=== PATIENT | male | born 1975 | race Caucasian/White ===

== ENCOUNTER 2016-07-31 18:44 | Emergency (ER) | payer OTHER ==
[2016-07-31 19:46] VITALS: BP 154/92
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
== END 2016-07-31 20:20 | disposition short-term general hospital (02) ==
LOC: UCEAST 18:44
DX: R10.12 Left upper quadrant pain (principal); F12.90 Cannabis use, unspecified, uncomplicated; F17.220 Nicotine dependence, chewing tobacco, uncomplicated
CPT/HCPCS: 99213; G0463

== ENCOUNTER 2016-07-31 20:52 | Emergency (ER) | payer OTHER ==
[2016-07-31] MEDS ORDERED: Ondansetron INJ* 2 MG/ML VIAL IV ONE (21:33)
[2016-07-31] MEDS ORDERED: Morphine INJ* 4 MG/ML 1 ML CARPUJECT IV ONE ×2 (21:33→23:01)
[2016-07-31 21:54] LABS: Hematocrit 41 % (42-52); Mean Corpuscular HGB Conc 35 g/dl (31-36); Mean Corpuscular Hemoglobin 30 pg (27-31); Mean Corpuscular Volume 87 fL (80-94); Mean Platelet Volume 8 um3 (7.4-10.4); Red Blood Count 4.69 10^6/ul (4.0-5.4); Red Cell Distribution Width 13 % (10.5-15); White Blood Count 7.5 10^3/ul (3.5-10.8)
[2016-07-31 22:15] LABS: Albumin 4.4 g/dL (3.2-5.2); BUN/Creatinine Ratio 20.7 (8-20); Calcium 9.5 mg/dL (8.6-10.3); EGFR African American 134.5 (>60); EGFR Non-African American 104.6 (>60); Globulin 2.8 g/dL (2-4); Total Bilirubin 0.5 mg/dL (0.2-1.0); Total Protein 7.2 g/dL (6.4-8.9)
[2016-07-31] MEDS ORDERED: Iohexol 300* (CONTRAST) 10 ML SDV IV ONE (22:30)
--- NOTE | 2016-07-31 22:59 | RAD ---
INDICATION: Left upper quadrant pain for 2 to 3 hours COMPARISON: CT abdomen and pelvis December 25, 2014 TECHNIQUE: Axial source images were obtained from the hemidiaphragms to the symphysis pubis following administration of oral and intravenous contrast. 139 mL Omnipaque 300 was utilized. Coronal and sagittal reconstructed images were acquired. Lung bases: The lung bases are clear. Liver: The liver is normal in size. There is mild hepatic steatosis. There are no masses. There is no ductal dilatation. Gallbladder: Cholelithiasis. Spleen: The spleen is normal in size. There are no masses. Pancreas: There is no focal pancreatic mass or ductal dilatation. Adrenal glands: There is no evidence of adrenal mass. Kidneys: The kidneys are normal in size and position. There are prompt nephrograms and there is prompt excretion bilaterally. There are no renal parenchymal masses. There is no evidence of nephrolithiasis. Adenopathy: There is no evidence of adenopathy by size criteria. Fluid collections: There are no free or localized fluid collections. Vessels:There are no significant atherosclerotic changes involving the aorta. There is no focal aneurysm. The iliac vessels are normal in caliber. The IVC appears normal. GI tract: There are no acute CT bowel findings. There is no obstruction. The stomach and small bowel appear normal. The lower GI tract is normal. The cecum, ileocecal valve, and terminal ileum appear normal. The appendix is visualized and appear normal. Pelvic organs: The prostate and seminal vesicles appear normal Bladder: There are no bladder masses. Abdominal and pelvic soft tissues: The extraperitoneal abdominal and pelvic soft tissues appear normal.. Osseous structures: There are no acute osseous findings. Other: None IMPRESSION: MILD HEPATIC STEATOSIS. CHOLELITHIASIS. NO ACUTE CT FINDINGS.
[2016-07-31] MEDS ORDERED: oxyCODONE/Acetamin 5/325 MG* TAB PO ONE (23:11)
[2016-07-31 23:29] VITALS: BP 158/70
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
== END 2016-07-31 23:28 | disposition home or self-care (01) ==
LOC: ED 20:52
DX: R10.12 Left upper quadrant pain (principal); Z87.891 Personal history of nicotine dependence; N28.89 Other specified disorders of kidney and ureter; K80.20 Calculus of gallbladder without cholecystitis without obstruction
CPT/HCPCS: 36415; 74177; 80053; 83690; 85025; 96374; 96375; 96376; 99282; A9270-GY; J2270; J2405; Q9967

== ENCOUNTER 2016-10-10 12:37 | Emergency (ER) | payer OTHER ==
[2016-10-10 12:41] VITALS: BP 141/80
[2016-10-10] MEDS ORDERED: Ondansetron ODT TAB* 4 MG PO ONE (13:11)
[2016-10-10] MEDS ORDERED: Amoxicillin/Clavulanate TAB* 875 MG PO ONE (13:11)
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
[2016-10-11] MEDS ORDERED: Fluticasone NASAL SPRAY 50MCG* 16 gm SPRAY BTL BOTH NARES SCH (09:00)
== END 2016-10-10 13:45 | disposition home or self-care (01) ==
LOC: ED 12:37
DX: J01.90 Acute sinusitis, unspecified (principal); J06.9 Acute upper respiratory infection, unspecified; R09.89 Other specified symptoms and signs involving the circulatory and respiratory systems; R05 Cough; Z87.891 Personal history of nicotine dependence
CPT/HCPCS: 99281; A9270-GY

== ENCOUNTER 2016-10-12 21:33 | Emergency (ER) | payer OTHER ==
--- NOTE | 2016-10-12 23:13 | RAD ---
Indication: Severe headaches. CT of the brain was performed without IV contrast. Ventricular structures are midline. No midline shift is noted. The extra-axial spaces are unremarkable. There is no evidence of intracranial mass or hemorrhage. No other high or low density lesions are identified. Mastoid air cells and paranasal sinuses are otherwise unremarkable. When compared to previous exam of April 24, 2016 no significant change is noted. IMPRESSION: No intracranial mass or hemorrhage is noted.
--- NOTE | 2016-10-12 23:18 | RAD ---
CT of the sinuses was obtained in the axial plane. Sagittal and coronal reconstructed images were obtained. The frontal sinuses demonstrate some mucosal thickening of the left frontal sinus extending into the left anterior ethmoid air cells. Ethmoid air cells are otherwise unremarkable. Sphenoid sinuses are clear. There is multiple mucous retention cysts in the right maxillary sinus. No air-fluid levels are noted. The left maxillary sinus is clear. The right ostiomeatal unit appears to be obstructed due to mucosal thickening. The left ostiomeatal units appear patent although there are small bilateral Iliana cells noted. No nikki bullosa or paradoxical turn's of the middle turbinates is noted. IMPRESSION: Minimal mucosal thickening of the left frontal sinus. Multiple mucous retention cyst in the right maxillary sinus. Mucosal thickening of the right maxillary sinus and obstruction of the right ostiomeatal unit.
[2016-10-12 23:33] VITALS: BP 152/78
[2016-10-12] MEDS ORDERED: Acetaminop/Codeine 30 MG TAB* 1 TAB (300 MG/30 MG) PO ONE (23:49)
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
== END 2016-10-12 23:53 | disposition home or self-care (01) ==
LOC: UCEAST 21:33
DX: J32.9 Chronic sinusitis, unspecified (principal); I10 Essential (primary) hypertension; J45.909 Unspecified asthma, uncomplicated; K21.9 Gastro-esophageal reflux disease without esophagitis; F12.90 Cannabis use, unspecified, uncomplicated; Z87.442 Personal history of urinary calculi; Z91.030 Bee allergy status; Z91.013 Allergy to seafood; Z87.891 Personal history of nicotine dependence
CPT/HCPCS: 70450; 70486; 99213; A9270-GY; G0463

== ENCOUNTER 2016-12-11 14:22 | Emergency (ER) | payer OTHER ==
[2016-12-11 14:37] VITALS: BP 153/93
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
== END 2016-12-11 15:16 | disposition left against medical advice (07) ==
LOC: UCEAST 14:22
DX: R07.2 Precordial pain (principal); R06.02 Shortness of breath; Z87.891 Personal history of nicotine dependence; Z87.442 Personal history of urinary calculi; Z53.20 Procedure and treatment not carried out because of patient's decision for unspecified reasons
CPT/HCPCS: 93005; 99212; G0463

== ENCOUNTER 2016-12-11 15:23 | Emergency (ER) | payer OTHER ==
[2016-12-11] MEDS ORDERED: Aspirin Low Dose CHEW TAB* 81 MG PO ONE (16:02)
[2016-12-11 17:07] LABS: Hematocrit 42 % (42-52); Hemoglobin 14.3 g/dl (14.0-18.0); Mean Corpuscular HGB Conc 34 g/dl (31-36); Mean Corpuscular Hemoglobin 30 pg (27-31); Mean Corpuscular Volume 87 fL (80-94); Mean Platelet Volume 8 um3 (7.4-10.4); Red Blood Count 4.81 10^6/ul (4.0-5.4); Red Cell Distribution Width 13 % (10.5-15); White Blood Count 6.8 10^3/ul (3.5-10.8)
--- NOTE | 2016-12-11 17:07 | RAD ---
INDICATION: Chest pain. COMPARISON: Comparison is made with a prior chest x-ray study from April 24, 2016. TECHNIQUE: A portable view of the chest was obtained. FINDINGS: Cardiac and mediastinal contours appear to be within normal limits. The lungs are hyperinflated and clear. No pleural effusion is seen. IMPRESSION: NO EVIDENCE FOR ACUTE FINDING.
[2016-12-11 17:35] LABS: Albumin 4.4 g/dL (3.2-5.2); BUN/Creatinine Ratio 16.9 (8-20); Calcium 9.5 mg/dL (8.6-10.3); EGFR African American 132.6 (>60); EGFR Non-African American 103.1 (>60); Globulin 2.7 g/dL (2-4); Potassium 3.9 mmol/L (3.5-5.0); Total Bilirubin 0.5 mg/dL (0.2-1.0); Total Protein 7.1 g/dL (6.4-8.9)
[2016-12-11 20:37] VITALS: BP 143/77
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
== END 2016-12-11 20:53 | disposition left against medical advice (07) ==
LOC: ED 15:23
DX: R07.9 Chest pain, unspecified (principal); R51 Headache; R42 Dizziness and giddiness; R06.02 Shortness of breath
CPT/HCPCS: 36415; 71010; 80053; 83605; 84484; 85025; 85379; 93005; 99285; A9270-GY

== ENCOUNTER 2017-02-05 19:07 | Emergency (ER) | payer OTHER ==
[2017-02-05] MEDS ORDERED: Ondansetron INJ* 2 MG/ML VIAL IV ONE (22:39)
[2017-02-05] MEDS ORDERED: HYDROmorphone* 1 MG/ML 1 ML SYR IV ONE (22:39)
[2017-02-05] MEDS ORDERED: NS 0.9% 1000 ML* 1,000 ML IV ONE (22:39)
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
[2017-02-05 22:54] LABS: Urine Bacteria Absent (Absent); Urine Bilirubin Negative (Negative); Urine Glucose Negative (Negative); Urine Nitrite Negative (Negative)
[2017-02-05 22:58] LABS: Hematocrit 41 % (42-52); Hemoglobin 14.1 g/dl (14.0-18.0); Mean Corpuscular HGB Conc 34 g/dl (31-36); Mean Corpuscular Hemoglobin 30 pg (27-31); Mean Corpuscular Volume 89 fL (80-94); Mean Platelet Volume 8 um3 (7.4-10.4); Red Blood Count 4.64 10^6/ul (4.0-5.4); Red Cell Distribution Width 13 % (10.5-15); White Blood Count 6.3 10^3/ul (3.5-10.8)
[2017-02-05 23:12] LABS: Albumin 4.4 g/dL (3.2-5.2); BUN/Creatinine Ratio 22.6 (8-20); C Reactive Protein 3.51 mg/L (< 5.00); Calcium 9.1 mg/dL (8.6-10.3); EGFR African American 116.3 (>60); EGFR Non-African American 90.5 (>60); Globulin 2.8 g/dL (2-4); Potassium 3.6 mmol/L (3.5-5.0); Total Bilirubin 0.8 mg/dL (0.2-1.0); Total Protein 7.2 g/dL (6.4-8.9)
[2017-02-06 00:30] VITALS: BP 137/72
--- NOTE | 2017-02-06 07:58 | RAD ---
INDICATION: Right upper quadrant pain. COMPARISON: Comparison is made with a prior CT of the abdomen and pelvis from July 31, 2016. TECHNIQUE: Multiple real-time images of the right upper quadrant were obtained. FINDINGS: There are gallstones present. The gallbladder wall is mildly thickened measuring up to 0.3 cm in thickness. The production technologist noted a positive sonographic Medina's sign. No intra or extrahepatic ductal distention is present. The common bile duct measured 0.3 cm in diameter. The liver is normal in size and increased in echogenicity without focal abnormality suggestive of fatty infiltration. The right kidney is normal in size without evidence for hydronephrosis. IMPRESSION: 1. CHOLELITHIASIS AND POSSIBLE ACUTE CHOLECYSTITIS CONSIDER A HEPATOBILIARY SCAN FOR FURTHER EVALUATION. 2. FATTY INFILTRATION OF THE LIVER.
== END 2017-02-06 01:04 ==
LOC: ED 19:07
DX: R10.13 Epigastric pain (principal); R10.11 Right upper quadrant pain; K80.20 Calculus of gallbladder without cholecystitis without obstruction; R11.2 Nausea with vomiting, unspecified; I10 Essential (primary) hypertension; J45.909 Unspecified asthma, uncomplicated; K21.9 Gastro-esophageal reflux disease without esophagitis; Z87.442 Personal history of urinary calculi; Z91.030 Bee allergy status; Z91.013 Allergy to seafood; Z87.891 Personal history of nicotine dependence
CPT/HCPCS: 36415; 76705; 80053; 81003; 81015; 83605; 83690; 85025; 86140; 87086; 96360; 96361; 96375; 99283; J1170; J2405

== ENCOUNTER 2017-02-06 19:33 | Emergency (ER) | payer OTHER ==
[2017-02-06] MEDS ORDERED: NS 0.9% 1000 ML* 1,000 ML IV ONE (20:50)
[2017-02-06 21:26] LABS: Hematocrit 40 % (42-52); Hemoglobin 13.6 g/dl (14.0-18.0); Mean Corpuscular HGB Conc 34 g/dl (31-36); Mean Corpuscular Hemoglobin 30 pg (27-31); Mean Corpuscular Volume 88 fL (80-94); Mean Platelet Volume 8 um3 (7.4-10.4); Red Blood Count 4.52 10^6/ul (4.0-5.4); Red Cell Distribution Width 13 % (10.5-15); White Blood Count 7.4 10^3/ul (3.5-10.8)
[2017-02-06 21:35] LABS: Urine Bacteria Absent (Absent); Urine Bilirubin Negative (Negative); Urine Glucose Negative (Negative); Urine Nitrite Negative (Negative)
[2017-02-06 21:41] LABS: Albumin 4.4 g/dL (3.2-5.2); BUN/Creatinine Ratio 23.9 (8-20); C Reactive Protein 3.21 mg/L (< 5.00); Calcium 9.1 mg/dL (8.6-10.3); EGFR African American 117.8 (>60); EGFR Non-African American 91.6 (>60); Globulin 2.8 g/dL (2-4); Potassium 3.7 mmol/L (3.5-5.0); Total Bilirubin 0.9 mg/dL (0.2-1.0); Total Protein 7.2 g/dL (6.4-8.9)
[2017-02-06] MEDS ORDERED: Ondansetron INJ* 2 MG/ML VIAL IV ONE (21:44)
[2017-02-06] MEDS ORDERED: Ketorolac INJ* 30 MG/ML 1 ML VIAL IV PUSH ONE (21:44)
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
[2017-02-06 23:24] VITALS: BP 138/82
== END 2017-02-06 23:25 | disposition home or self-care (01) ==
LOC: ED 19:33
DX: K80.50 Calculus of bile duct without cholangitis or cholecystitis without obstruction (principal); I10 Essential (primary) hypertension; J45.909 Unspecified asthma, uncomplicated; K21.9 Gastro-esophageal reflux disease without esophagitis; Z87.891 Personal history of nicotine dependence
CPT/HCPCS: 36415; 80053; 81003; 83605; 83690; 85025; 86140; 96360; 96374; 96375; 99283; J1885; J2405

== ENCOUNTER 2017-02-23 19:33 | Emergency (ER) | payer OTHER ==
[2017-02-23] MEDS ORDERED: HYDROmorphone* 1 MG/ML 1 ML SYR IV ONE (20:56)
[2017-02-23] MEDS ORDERED: Ondansetron INJ* 2 MG/ML VIAL IV ONE ×2 (20:56→23:30)
[2017-02-23 21:14] LABS: Hematocrit 39 % (42-52); Hemoglobin 13.6 g/dl (14.0-18.0); Mean Corpuscular HGB Conc 35 g/dl (31-36); Mean Corpuscular Hemoglobin 30 pg (27-31); Mean Corpuscular Volume 87 fL (80-94); Mean Platelet Volume 8 um3 (7.4-10.4); Red Cell Distribution Width 13 % (10.5-15); White Blood Count 6.1 10^3/ul (3.5-10.8)
[2017-02-23 21:32] LABS: Albumin 4.4 g/dL (3.2-5.2); BUN/Creatinine Ratio 13.6 (8-20); C Reactive Protein 1.73 mg/L (< 5.00); Calcium 9.3 mg/dL (8.6-10.3); EGFR Non-African American 96.4 (>60); Globulin 2.8 g/dL (2-4); Potassium 3.6 mmol/L (3.5-5.0); Total Bilirubin 0.5 mg/dL (0.2-1.0); Total Protein 7.2 g/dL (6.4-8.9)
[2017-02-23 21:34] LABS: Urine Bacteria Absent (Absent); Urine Bilirubin Negative (Negative); Urine Glucose Negative (Negative); Urine Nitrite Negative (Negative)
[2017-02-23] MEDS: NS 0.9% 1000 ML* 2,000 ML IV ONE ×2 (21:45→21:46)
--- NOTE | 2017-02-23 22:00 | RAD ---
HISTORY: Right upper quadrant pain after eating COMPARISONS: February 05, 2017 TECHNIQUE: Multiple transverse and longitudinal ultrasound images were obtained of the right upper quadrant of the abdomen using grayscale and color Doppler imaging. FINDINGS: LIVER: The liver is diffusely echogenic and coarse in echotexture, with decreased acoustic transmission. The liver is otherwise normal in shape, size, and contour. There is normal hepatopedal flow of the portal vein on Doppler imaging. BILIARY TREE: There is no intrahepatic biliary dilatation. The extrahepatic common duct is not well visualized. GALLBLADDER: Again noted is an echogenic stone within the gallbladder. This is mobile. There is no sonographic Medina's sign or pericholecystic fluid or gallbladder wall thickening. PANCREAS: The pancreas is obscured by overlying bowel gas. RIGHT KIDNEY: The right kidney is normal in shape, size, contour, and echogenicity. There is no hydronephrosis or nephrolithiasis. The right kidney measures 12.2 x 6 x 5.7 cm. AORTA AND IVC: The aorta and IVC are unremarkable. FLUID: There are no pleural effusions. There is no free fluid within the hepatorenal recess. OTHER FINDINGS: None. IMPRESSION: 1. FATTY LIVER. 2. CHOLELITHIASIS WITHOUT SONOGRAPHIC FEATURES OF ACUTE CHOLECYSTITIS
[2017-02-23] MEDS ORDERED: Ketorolac INJ* 30 MG/ML 1 ML VIAL IV PUSH ONE (23:29)
[2017-02-23] MEDS ORDERED: HYDROmorphone* 1 MG/ML 1 ML SYR IV SLOW PU ONE (23:30)
[2017-02-24] MEDS ORDERED: oxyCODONE TAB* 5 MG TAB PO ONE (01:16)
[2017-02-24] MEDS ORDERED: Ondansetron TAB* 4 MG PO ONE (01:18)
[2017-02-24 01:49] VITALS: BP 134/74
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
== END 2017-02-24 01:47 | disposition home or self-care (01) ==
LOC: ED 19:33
DX: R10.11 Right upper quadrant pain (principal); R11.0 Nausea; Z87.891 Personal history of nicotine dependence; Z86.79 Personal history of other diseases of the circulatory system
CPT/HCPCS: 36415; 76705; 80053; 81003; 81015; 82150; 83605; 83690; 85025; 85610; 86140; 87086; 96374; 96375; 99283; A9270-GY; J1170; J1885; J2405

== ENCOUNTER 2017-03-06 10:33 | Day surgery (SDC) | payer OTHER ==
[~2017-03-06 10:33] MED LIST: Buffered Lidocaine 0.9% SYRIN* 5 ML/SYR SYRINGE INTRADERM ONE; Sodium Citrate/Citric Acid* 15 ML UDC PO ONE
[2017-03-06] MEDS ORDERED: ceFAZolin 2 GM PREMIX (*) 50 ML IVPB ONE (10:35)
[2017-03-06] MEDS ORDERED: Buffered Lidocaine 0.9% SYRIN* 5 ML/SYR SYRINGE ONE (10:35)
[2017-03-06] MEDS ORDERED: Sodium Citrate/Citric Acid* 15 ML UDC ONE (10:35)
[2017-03-06] MEDS ORDERED: fentaNYL* 50 MCG/ML 2 ML VIAL (100 MCG VIAL) ONE ×3 (12:49→15:29)
[2017-03-06] MEDS ORDERED: Midazolam* 1 MG/ML 2 ML VIAL (2 MG) ONE (12:49)
[2017-03-06] MEDS ORDERED: Lidocaine 2% PF * 5 ML VIAL ONE (12:50)
[2017-03-06] MEDS ORDERED: Propofol* 10 MG/ML 20 ML BTL IV PUSH ONE ×2 (12:50→14:17)
[2017-03-06] MEDS ORDERED: Ondansetron INJ* 2 MG/ML VIAL IV PRN (13:01)
[2017-03-06] MEDS ORDERED: Bupivacaine 0.25% SDV* 30 ML ONE (13:10)
[2017-03-06] MEDS ORDERED: Cisatracurium* 2 MG/ML MDV 5 ML ONE (13:10)
[2017-03-06] MEDS ORDERED: Dexamethasone IV* 4 MG/ML 1 ML (4 MG) ONE (14:14)
--- NOTE | 2017-03-06 14:31 | SURGPN ---
Brief Operative Note - Surgery Procedures: Procedures Pre-OP Diagnoses: chronic cholecystitis Post-op Diagnosis: same Procedure: Laparoscopic cholecystectomy Surgeon: Kalpesh Asst: Jatinder Balderrama Anethesia: DAFNE Malave EBL: minimal IVF: 1300ccLR Specimen: gallbladder Drains: none
[2017-03-06] MEDS: fentaNYL* 50 MCG/ML 2 ML VIAL (100 MCG VIAL) IV PRN ×3 (14:50→15:29)
[2017-03-06] MEDS ORDERED: Ketorolac INJ* 30 MG/ML 1 ML VIAL ONE (14:55)
[2017-03-06] MEDS ORDERED: oxyCODONE/Acetamin 5/325 MG* TAB PO PRN (15:04)
[2017-03-06] MEDS ORDERED: oxyCODONE/Acetamin 5/325 MG* TAB ONE (15:19)
[2017-03-06 16:24] VITALS: BP 132/83
--- NOTE | 2017-03-08 03:13 | OP ---
CC: Dr. Maximo Selby * DATE OF PROCEDURE: 03/06/17 - [facility] DATE OF : 79 SURGEON: Vinh Posey MD ANIMAL FEEDER: KANDACE Gregorio ANESTHESIOLOGIST: Viral Malave DO ANESTHESIA: General anesthesia. PRE-OP DIAGNOSIS: Chronic cholecystitis. POST-OP DIAGNOSES: Chronic cholecystitis. OPERATIVE PROCEDURE: Laparoscopic cholecystectomy. ESTIMATED BLOOD LOSS: Minimal blood loss. FLUIDS: 1300 cc of LR given. SPECIMEN: Gallbladder. DRAINS: None. DESCRIPTION OF PROCEDURE: The patient was identified in the preoperative area. Consent signed. His abdomen was marked and he was taken to the operative room, placed on the operating table in the supine position. Preoperative antibiotics were given. Sequential devices were placed on bilateral lower extremities. General anesthesia was induced. The patient's abdomen was prepped and draped in standard surgical fashion. A time-out was performed. Folds of the umbilicus were elevated anteriorly, and a Veress needle was inserted into the abdominal cavity, which was then allowed to insufflate to a pressure of 15 mmHg. The patient tolerated the insufflation well. Incision was made over the Veress needle, which was then removed and a 5-mm trocar was inserted. Laparoscope was then inserted through this and there was no evidence of injury from the trocar insertion or from the Veress needle. Attention was then turned towards the right upper quadrant. The patient was placed in a reverse Trendelenburg right side up position. Gallbladder was identified. It appeared with chronic changes with attachments to the omentum. Additional trocars were placed in the following position: 12 mm in the subxiphoid area and two 5 mm along the right costal margin. The window on the dome of the gallbladder was identified and this was grasped and elevated anteriorly with both blunt and sharp dissections. Omental attachments were taken down until we could see the body of the gallbladder and ultimately the infundibulum. Once the infundibulum was identified, it was grasped and retracted towards the right lower quadrant exposing critical view with the triangle of Calot. The peritoneum of the medial aspect of the gallbladder was taken with electrocautery and similarly up to the lateral aspect , a window was made at the cystic artery and this was doubly clipped and ligated. Similarly, the cystic duct was isolated. Additional dissection posteriorly was performed until we were sure that we were in the appropriate positioning. The cystic duct was then triply clipped and ligated. The gallbladder was removed from the liver bed, placed in the endoscopic retrieval bag. This was brought out through the subxiphoid port site. We did use irrigation to clear out the small portion of bile that had leaked from the perforation of the gallbladder. Review of the cystic duct stump, cystic artery stump showed no bleeding or bile with the clips intact. After the gallbladder was removed and placed in the endoscopic retrieval bag, the abdomen was allowed to collapse. The trocar was removed under direct vision. All four skin incisions were reapproximated with 4-0 Monocryl subcuticular sutures followed by Steri-Strips and sterile dressing. The patient tolerated the procedure well , was woken up in the OR, and transferred to the PACU in stable condition. [id number]/CPS #: [id number] MTDD
== END 2017-03-06 16:25 | disposition home or self-care (01) ==
LOC: OR 10:33
PROVIDERS: ATTEND Surgery
DX: K80.10 Calculus of gallbladder with chronic cholecystitis without obstruction (principal); Z87.891 Personal history of nicotine dependence; I10 Essential (primary) hypertension
CPT/HCPCS: 36415; 86703; 88304; A9270-GY; J0690; J1100; J1885; J2250; J2704; J3010

== ENCOUNTER 2017-05-28 08:00 | Emergency (ER) | payer OTHER ==
[2017-05-28] MEDS ORDERED: Ondansetron INJ* 2 MG/ML VIAL IV ONE (08:08)
[2017-05-28] MEDS ORDERED: Ketorolac INJ* 30 MG/ML 1 ML VIAL IV ONE (08:08)
[2017-05-28] MEDS ORDERED: Morphine INJ* 4 MG/ML 1 ML CARPUJECT IV ONE ×2 (08:08→10:24)
[2017-05-28] MEDS ORDERED: NS 0.9% 1000 ML* 2,000 ML IV ONE (08:08)
[2017-05-28 08:21] LABS: Hematocrit 42 % (42-52); Hemoglobin 14.8 g/dl (14.0-18.0); Mean Corpuscular HGB Conc 35 g/dl (31-36); Mean Corpuscular Hemoglobin 30 pg (27-31); Mean Corpuscular Volume 86 fL (80-94); Mean Platelet Volume 8 um3 (7.4-10.4); Red Blood Count 4.96 10^6/ul (4.0-5.4); Red Cell Distribution Width 13 % (10.5-15); White Blood Count 10.7 10^3/ul (3.5-10.8)
[2017-05-28 08:38] LABS: Albumin 4.2 g/dL (3.2-5.2); BUN/Creatinine Ratio 14.1 (8-20); C Reactive Protein 4.38 mg/L (< 5.00); Calcium 9.9 mg/dL (8.6-10.3); EGFR African American 117.2 (>60); EGFR Non-African American 91.1 (>60); Globulin 2.9 g/dL (2-4); Potassium 4.2 mmol/L (3.5-5.0); Total Bilirubin 0.6 mg/dL (0.2-1.0); Total Protein 7.1 g/dL (6.4-8.9)
--- NOTE | 2017-05-28 08:40 | RAD ---
Indication: Flank pain. CT of the abdomen and pelvis was performed without oral or IV contrast administration. Coronal and sagittal reconstructed images were obtained. The lung bases demonstrate no pleural fluid, nodules or masses. Heart is of normal size without evidence of pericardial effusion. The liver is normal in size. No focal lesions or intrahepatic ductal dilatation is noted. The gallbladder has been resected. Common duct is not dilated. Pancreas demonstrates no mass or pancreatic duct dilatation. Spleen is normal in size. No adrenal lesions are noted. The right kidney is unremarkable. There is enlargement of the left kidney with mild to moderate left hydronephrosis and left hydroureter. Perinephric infiltration of fat is noted. There is a calculus left distal ureter just above the ureterovesicular junction measuring 4 mm. This is approximately 6 mm proximal to the ureterovesicular junction. No retroperitoneal adenopathy is noted. Aorta and inferior vena cava are unremarkable. No dilated loops of bowel are noted. Prostate and urinary bladder are unremarkable. The appendix is visualized and is normal. No hernias are noted. The bony structures are otherwise unremarkable. IMPRESSION: 4 mm calculus at the distal left ureter at the left ureterovesicular junction with mild left hydronephrosis. Nonobstructing calculi is noted in the left renal collecting system.
[2017-05-28 09:32] LABS: Urine Bacteria Absent (Absent); Urine Bilirubin Negative (Negative); Urine Glucose Negative (Negative); Urine Nitrite Negative (Negative)
[2017-05-28] MEDS ORDERED: Tamsulosin CAP* 0.4 MG PO ONE (12:31)
[2017-05-28 12:50] VITALS: BP 120/60
--- NOTE | 2017-05-29 08:33 | ED ---
Clifford Petersen Angela, scribed for Jeremiah French MD on 05/28/17 at 0815 . Back Pain - HPI Summary HPI Summary: This pt is a 42 y/o male presenting to [facility] via EMS c/o worsening left sided flank pain since 0300 today. Pt reports his left side was sore yesterday and at 0300 his pain increased in severity. He additionally notes discolored urine and difficulty to fully empty bladder. Pt has a PMHx of kidney stones. His last kidney stone was in 2011. Currently, pt rates his pain 10/10 in severity. - History of Current Complaint Chief Complaint: EDUrogenitalProblems Stated Complaint: KIDNEY PAIN Time Seen by Provider: 05/28/17 08:04 Hx Obtained From: Patient Onset/Duration: Lasting Hours, Still Present Onset/Duration: Started Hours Ago, Still Present Timing: Constant Back Pain Location: Is Discrete @ - left flank Pain Intensity: 10 Pain Scale Used: 0-10 Numeric Associated Signs And Symptoms: Positive: Flank Pain - left - Allergies/Home Medications Allergies/Adverse Reactions: Allergies Allergy/AdvReac Type Severity Reaction Status Date / Time Bee Venom Allergy Severe ANAPHYLACTIC Verified 03/06/17 10:46 SHOCK Shellfish Allergy Allergy Severe See Comment Verified 03/06/17 10:46 PMH/Surg Hx/FS Hx/Imm Hx Endocrine/Hematology History: Denies: Hx Diabetes, Hx Thyroid Disease Cardiovascular History: Reports: Hx Hypertension - on med Denies: Hx Congestive Heart Failure, Hx Pacemaker/ICD Respiratory History: Reports: Hx Asthma - INHALER NEEDED, Other Respiratory Problems/Disorders - POOR RESPIRATORY TEST 4 yrs ago + skin TB test - had (-) serial CXR's tx'd Denies: Hx Chronic Obstructive Pulmonary Disease (COPD) GI History: Reports: Hx Gastroesophageal Reflux Disease - on med Denies: Hx Ulcer History: Reports: Hx Kidney Stones - 2010 Denies: Hx Dialysis, Hx Renal Disease Musculoskeletal History: Denies: Hx Rheumatoid Arthritis, Hx Osteoporosis Sensory History: Denies: Hx Hearing Aid Psychiatric History: Reports: Hx Anxiety - no meds Denies: Hx Panic Disorder, Hx of Violent Episodes Against Others - Surgical History Surgery Procedure, Year, and Place: October 2010 - Kidney stone removed. tonsillectomy as a child. 2000 - repaired laceration to right hand. had spinal tap to r/o meningitis - had to have blood patch next day Hx Anesthesia Reactions: No - Immunization History Date of Tetanus Vaccine: 2011 Date of Influenza Vaccine: None Infectious Disease History: No Infectious Disease History: Denies: Hx Clostridium Difficile, Hx Hepatitis, Hx Human Immunodeficiency Virus (HIV), Hx of Known/Suspected MRSA, Hx Shingles, Hx Tuberculosis, Hx Known/ Suspected VRE, Hx Known/Suspected VRSA, History Other Infectious Disease, Traveled Outside the [place] in Last 30 Days - Family History Known Family History: Positive: Cardiac Disease - MOM AND DAD BOTH HAD 3V CABG IN THEIR 50s, Hypertension, Diabetes - brother, recent, Other - cancer - Social History Alcohol Use: Weekly Alcohol Amount: few beers every weekend Hx Substance Use: Yes Substance Use Type: Reports: Marijuana Substance Use Comment - Amount & Last Used: states socially-denies any other drug use Hx Tobacco Use: Yes Smoking Status (MU): Former Smoker Type: Cigarettes Amount Used/How Often: More than 1.5 pack per day Length of Time of Smoking/Using Tobacco: 27 years old Have You Smoked in the Last Year: No Review of Systems Negative: Fever, Chills Eyes: Negative ENT: Negative Cardiovascular: Negative Respiratory: Negative Gastrointestinal: Negative Genitourinary: Other - discolored urine, difficulty emptying bladder Positive: flank pain - left Skin: Negative Neurological: Negative All Other Systems Reviewed And Are Negative: Yes Physical Exam - Summary Physical Exam Summary: VITAL SIGNS: Reviewed. GENERAL: Patient is a well-developed and nourished male who is in severe distress secondary to pain. HEAD AND FACE: No signs of trauma. No ecchymosis, hematomas or skull depressions. No sinus tenderness. EYES: PERRLA, EOMI x 2, No injected conjunctiva, no nystagmus. EARS: Hearing grossly intact. Ear canals and tympanic membranes are within normal limits. MOUTH: Oropharynx within normal limits. NECK: Supple, trachea is midline, no adenopathy, no JVD, no carotid bruit, no c- spine tenderness, neck with full ROM. CHEST: Symmetric, no tenderness at palpation LUNGS: Clear to auscultation bilaterally. No wheezing or crackles. CVS: Regular rate and rhythm, S1 and S2 present, no murmurs or gallops appreciated. ABDOMEN: Soft, non-tender. No signs of distention. No rebound no guarding, and no masses palpated. Bowel sounds are normal. Left costovertebral tenderness. Left flank tenderness. EXTREMITIES: FROM in all major joints, no edema, no cyanosis or clubbing. NEURO: Alert and oriented x 3. No acute neurological deficits. Speech is normal and follows commands. SKIN: Dry and warm Triage Information Reviewed: Yes Vital Signs On Initial Exam: Initial Vitals Temp Pulse Resp BP Pulse Ox 97.9 F 68 20 179/117 96 05/28/17 08:04 05/28/17 08:04 05/28/17 08:04 05/28/17 08:04 05/28/17 08:04 Vital Signs Reviewed: Yes Diagnostics - Vital Signs Vital Signs Temp Pulse Resp BP Pulse Ox 05/28/17 08:04 97.9 F 68 20 179/117 96 - Laboratory Result Diagrams: 05/28/17 08:06 05/28/17 08:06 Lab Statement: Any lab studies that have been ordered have been reviewed, and results considered in the medical decision making process. - CT Abdomen/pelvis CT CT Interpretation: Positive (See Comments) - IMPRESSION: 4 mm calculus at the distal left ureter at the left ureterovesicular junction with mild left hydronephrosis. Nonobstructing calculi is noted in the left renal collecting system. ED physician has reviewed this radiology report and agrees. CT Interpretation Completed By: Radiologist Re-Evaluation - Re-Evaluation First Eval Re-Evaluation Time: 12:36 Comment: I reviewed the CT results with the pt. Back Pain Course/Dx - Course Assessment/Plan: This pt is a 42 y/o male presenting to [facility] via EMS c/o worsening left sided flank pain since 0300 today. Pt reports his left side was sore yesterday and at 0300 his pain increased in severity. He additionally notes discolored urine and difficulty to fully empty bladder. Pt has a PMHx of kidney stones. His last kidney stone was in 2011. Currently, pt rates his pain 10/10 in severity. Test results without any significant abnormalities. Urinalysis is negative for UTI. Abdomen/pelvis CT shows 4 mm calculus at the distal left ureter at the left ureterovesicular junction with mild left hydronephrosis. Nonobstructing calculi is noted in the left renal collecting system. In the ED course, the pt was given IV fluids, toradol and morphine for the pain, and Flomax for kidney stone. At this point the pt is feeling better, his pain has resolved and the pt is drinking and eating without nausea and vomiting. Therefore, he will be discharged home with follow up from his PCP. Pt is hemodynamically stable, alert and oriented x3. - Diagnoses Provider Diagnoses: Ureterolithiasis Discharge - Discharge Plan Condition: Stable Disposition: HOME Prescriptions: HYDROcodone/ACETAMIN 5-325 MG* [[place] 5-325 TAB*] 1 tab PO Q6H PRN #12 tab MDD 4 PRN Reason: Pain Tamsulosin CAP* [Flomax CAP*] 0.4 mg PO DAILY #10 cap Patient Education Materials: Kidney Stones (ED) Referrals: David Holland PROGRAMMING INTERN [Primary Care Provider] - Additional Instructions: Please follow up with your primary care provider. RETURN TO THE ED FOR ANY WORSENING SYMPTOMS. The documentation as recorded by the Clifford thapa Angela accurately reflects the service I personally performed and the decisions made by , Jeremiah French MD.
== END 2017-05-28 12:55 | disposition home or self-care (01) ==
LOC: ED 08:00
DX: N20.1 Calculus of ureter (principal); K21.9 Gastro-esophageal reflux disease without esophagitis; Z87.442 Personal history of urinary calculi; Z87.891 Personal history of nicotine dependence
CPT/HCPCS: 36415; 74176; 80053; 81003; 81015; 83690; 85025; 86140; 96374; 96375; 96376; 99282; J1885; J2270; J2405

== ENCOUNTER 2017-08-12 08:30 | Emergency (ER) | payer OTHER ==
[2017-08-12 10:45] VITALS: BP 122/70
--- NOTE | 2017-08-13 09:33 | ED ---
Clifford Petersen Angela, scribed for Jeremiah French MD on 08/12/17 at 0919 . Influenza-Like Illness - HPI Summary HPI Summary: This pt is a 42 y/[facility], cough, congestion , and fever since yesterday. Pt reports he has a daughter who was diagnosed with the flu. He denies chest pain or SOB. PMHx includes HTN, asthma, GERD, kidney stones. - History of Current Complaint Chief Complaint: EDFluSymptoms Time Seen by Provider: 08/12/17 08:32 Hx Obtained From: Patient Onset/Duration: Lasting Days, Still Present Severity: Moderate Associated Signs & Symptoms: Fever, Cough, Sore Throat - Allergy/Home Medications Allergies/Adverse Reactions: Allergies Allergy/AdvReac Type Severity Reaction Status Date / Time MS Bee Venom [Bee Venom] Allergy Severe ANAPHYLACTIC Verified 03/06/17 10:46 SHOCK MS Shellfish Allergy Allergy Severe See Comment Verified 03/06/17 10:46 [Shellfish Allergy] PMH/Surg Hx/FS Hx/Imm Hx Endocrine/Hematology History: Denies: Hx Diabetes, Hx Thyroid Disease Cardiovascular History: Reports: Hx Hypertension - on med Denies: Hx Congestive Heart Failure, Hx Pacemaker/ICD Respiratory History: Reports: Hx Asthma - INHALER NEEDED, Other Respiratory Problems/Disorders - POOR RESPIRATORY TEST 4 yrs ago + skin TB test - had (-) serial CXR's tx'd Denies: Hx Chronic Obstructive Pulmonary Disease (COPD) GI History: Reports: Hx Gastroesophageal Reflux Disease - on med Denies: Hx Ulcer History: Reports: Hx Kidney Stones - 2010 Denies: Hx Dialysis, Hx Renal Disease Musculoskeletal History: Denies: Hx Rheumatoid Arthritis, Hx Osteoporosis Sensory History: Denies: Hx Hearing Aid Psychiatric History: Reports: Hx Anxiety - no meds Denies: Hx Panic Disorder, Hx of Violent Episodes Against Others - Surgical History Surgery Procedure, Year, and Place: October 2010 - Kidney stone removed. tonsillectomy as a child. 2000 - repaired laceration to right hand. had spinal tap to r/o meningitis - had to have blood patch next day Hx Anesthesia Reactions: No - Immunization History Date of Tetanus Vaccine: 2011 Date of Influenza Vaccine: None Infectious Disease History: No Infectious Disease History: Denies: Hx Clostridium Difficile, Hx Hepatitis, Hx Human Immunodeficiency Virus (HIV), Hx of Known/Suspected MRSA, Hx Shingles, Hx Tuberculosis, Hx Known/ Suspected VRE, Hx Known/Suspected VRSA, History Other Infectious Disease, Traveled Outside the [place] in Last 30 Days - Family History Known Family History: Positive: Cardiac Disease - MOM AND DAD BOTH HAD 3V CABG IN THEIR 50s, Hypertension, Diabetes - brother, recent, Other - cancer - Social History Alcohol Use: Weekly Alcohol Amount: few beers every weekend Hx Substance Use: Yes Substance Use Type: Reports: Marijuana Substance Use Comment - Amount & Last Used: states socially-denies any other drug use Hx Tobacco Use: Yes Smoking Status (MU): Former Smoker Type: Cigarettes Amount Used/How Often: More than 1.5 pack per day Length of Time of Smoking/Using Tobacco: 27 years old Have You Smoked in the Last Year: No Review of Systems Positive: Fever ENT: Other - congestion Positive: Sore Throat, Ear Ache Negative: Chest Pain Positive: Cough. Negative: Shortness Of Breath Skin: Negative Neurological: Negative All Other Systems Reviewed And Are Negative: Yes Physical Exam - Summary Physical Exam Summary: VITAL SIGNS: Reviewed. GENERAL: Patient is a well-developed and nourished male who is lying comfortable in the stretcher. Patient is not in any acute respiratory distress. HEAD AND FACE: No signs of trauma. No ecchymosis, hematomas or skull depressions. Positive runny nose. EYES: PERRLA, EOMI x 2, No injected conjunctiva, no nystagmus. EARS: Hearing grossly intact. Ear canals and tympanic membranes are within normal limits. MOUTH: Oropharynx within normal limits. Pt has pharyngeal erythema. NECK: Supple, trachea is midline, no adenopathy, no JVD, no carotid bruit, no c- spine tenderness, neck with full ROM. CHEST: Symmetric, no tenderness at palpation LUNGS: Clear to auscultation bilaterally. No wheezing or crackles. CVS: Regular rate and rhythm, S1 and S2 present, no murmurs or gallops appreciated. ABDOMEN: Soft, non-tender. No signs of distention. No rebound no guarding, and no masses palpated. Bowel sounds are normal. EXTREMITIES: FROM in all major joints, no edema, no cyanosis or clubbing. NEURO: Alert and oriented x 3. No acute neurological deficits. Speech is normal and follows commands. SKIN: Dry and warm Triage Information Reviewed: Yes Vital Signs On Initial Exam: Initial Vitals Temp Pulse Resp BP Pulse Ox 97.9 F 58 18 152/85 97 08/12/17 08:48 08/12/17 08:48 08/12/17 08:48 08/12/17 08:48 08/12/17 08:48 Vital Signs Reviewed: Yes Diagnostics - Vital Signs Vital Signs Temp Pulse Resp BP Pulse Ox 08/12/17 08:48 97.9 F 58 18 152/85 97 - Laboratory Lab Results: Lab Results 08/12/17 08/12/17 Range/Units 09:25 09:27 Influenza A (Rapid) Negative (Negative) Influenza B (Rapid) Negative (Negative) Group A Strep Rapid Negative (Negative) Lab Statement: Any lab studies that have been ordered have been reviewed, and results considered in the medical decision making process. Flu Symptom Course/Dx - Course Assessment/Plan: This pt is a 42 y/o male presenting to [facility] c/o sore throat, cough, congestion, and fever since yesterday. Pt reports he has a daughter who was diagnosed with the flu. He denies chest pain or SOB. PMHx includes HTN, asthma, GERD, kidney stones. Influenza A and B is negative, rapid strep is negative. However the pt continues to have runny nose, sore throat, body aches, and 2 of his children have been diagnosed with influenza. Therefore, I decided to treat the pt with Tamiflu. Pt will be discharged to home with follow up from his PCP. Pt is hemodynamically stable, alert and oriented x3. Pt was instructed to return to the ED if the symptoms worsen. - Diagnoses Differential Diagnosis/HQI/PQRI: Positive: Bronchitis, Broncholiolitis, Influenza, Pneumonia, Upper Respiratory Infection Provider Diagnoses: Upper respiratory infection Discharge - Discharge Plan Condition: Stable Disposition: HOME Prescriptions: Oseltamivir CAP* [Tamiflu CAP*] 75 mg PO BID #10 cap Patient Education Materials: Upper Respiratory Infection (ED) Forms: *Work Release Referrals: David Holland NP [Primary Care Provider] - 1 Week Additional Instructions: Please follow up with your primary care provider. RETURN TO THE ED FOR ANY WORSENING SYMPTOMS. The documentation as recorded by the Clifford thapa Angela accurately reflects the service I personally performed and the decisions made by , Jeremiah French MD.
== END 2017-08-12 10:42 | disposition home or self-care (01) ==
LOC: ED 08:30
DX: J06.9 Acute upper respiratory infection, unspecified (principal); R50.9 Fever, unspecified; R05 Cough; Z86.79 Personal history of other diseases of the circulatory system; J02.9 Acute pharyngitis, unspecified; Z87.891 Personal history of nicotine dependence; Z87.19 Personal history of other diseases of the digestive system
CPT/HCPCS: 87502; 87651; 99282

== ENCOUNTER 2017-09-10 17:07 | Emergency (ER) | payer OTHER ==
--- NOTE | 2017-09-10 18:13 | RAD ---
Indication: Chest pain. 2 views of the chest including dual energy PA views demonstrate no mediastinal shift. Heart is of normal size and configuration. Lung patino demonstrate no pleural fluid, pneumonia or pneumothorax. Overall no changes noted since previous exam of April 01, 2017. IMPRESSION: No active cardiopulmonary disease is noted.
[2017-09-10 18:16] LABS: ABS Basophils 0.1 10^3/ul (0-0.2); ABS Eosinophils 0.1 10^3/ul (0-0.6); ABS Lymphocytes 3.4 10^3/ul (1.0-4.8); ABS Monocytes 0.6 10^3/ul (0-0.8); ABS Neutrophils 3.5 10^3/ul (1.5-7.7); ABS Nucleated RBC 0 10^3/ul; Eosinophil % 0.7 % (0-6); Hematocrit 41 % (42-52); Hemoglobin 14.5 g/dl (14.0-18.0); Lymphocyte % 44.9 % (25-47); Mean Corpuscular HGB Conc 36 g/dl (31-36); Mean Corpuscular Hemoglobin 31 pg (27-31); Mean Corpuscular Volume 85 fL (80-94); Mean Platelet Volume 8 um3 (7.4-10.4); Nucleated Red Blood Cells % 0.2; Platelet Count 195 10^3/ul (150-450); Red Blood Count 4.74 10^6/ul (4.0-5.4); Red Cell Distribution Width 13 % (10.5-15); White Blood Count 7.6 10^3/ul (3.5-10.8)
[2017-09-10 18:31] LABS: EGFR Non-African American 88.9 (>60)
[2017-09-10 19:14] VITALS: BP 148/75
--- NOTE | 2017-09-19 19:40 | ED ---
Juan F Petersen Stephanie, scribed for Bharathi Santos MD on 09/10/17 at 1732 . HPI Chest Pain - HPI Summary HPI Summary: The pt is a 42 y/o M presenting to the ED with c/o CP that began on 09/09/17. The pain is located in the substernal chest and radiates into the back. Symptoms include diaphoresis, dizziness, ROSALES, LE cramps, vision changes and nausea. He states "I feel like an elephant on my chest". The pt denies fever, vomiting and diarrhea. - History of Current Complaint Chief Complaint: EDChestPainROMI Time Seen by Provider: 09/10/17 17:28 Hx Obtained From: Patient Onset/Duration: Started Days Ago - 1, Still Present Timing: Constant Current Severity: Moderate Pain Intensity: 5 Pain Scale Used: 0-10 Numeric Chest Pain Location: Lower Sternal Chest Pain Radiates: Yes Chest Pain Radiates To:: Back Character: Tightness Aggravating Factor(s): Nothing Alleviating Factor(s): Nothing Associated Signs and Symptoms: Positive: Headaches, Dizziness, Diaphoresis, Other: - LE cramps, vision changes, nausea. Negative: diarrhea. Negative: Fever , Vomiting - Allergy/Home Medications Allergies/Adverse Reactions: Allergies Allergy/AdvReac Type Severity Reaction Status Date / Time MS Bee Venom [Bee Venom] Allergy Severe ANAPHYLACTIC Verified 03/06/17 10:46 SHOCK MS Shellfish Allergy Allergy Severe See Comment Verified 03/06/17 10:46 [Shellfish Allergy] Home Medications: Home Medications Multivitamins/Minerals TAB* [Theragran/minerals TAB*] 1 tab PO DAILY 09/10/17 [ History Confirmed 09/10/17] PMH/Surg Hx/FS Hx/Imm Hx Endocrine/Hematology History: Denies: Hx Diabetes, Hx Thyroid Disease Cardiovascular History: Reports: Hx Hypertension - on med Denies: Hx Congestive Heart Failure, Hx Pacemaker/ICD Respiratory History: Reports: Hx Asthma - INHALER NEEDED, Other Respiratory Problems/Disorders - POOR RESPIRATORY TEST 4 yrs ago + skin TB test - had (-) serial CXR's tx'd Denies: Hx Chronic Obstructive Pulmonary Disease (COPD) GI History: Reports: Hx Gastroesophageal Reflux Disease - on med Denies: Hx Ulcer History: Reports: Hx Kidney Stones - 2010 Denies: Hx Dialysis, Hx Renal Disease Musculoskeletal History: Denies: Hx Rheumatoid Arthritis, Hx Osteoporosis Sensory History: Denies: Hx Hearing Aid Psychiatric History: Reports: Hx Anxiety - no meds Denies: Hx Panic Disorder, Hx of Violent Episodes Against Others - Surgical History Surgery Procedure, Year, and Place: October 2010 - Kidney stone removed. tonsillectomy as a child. 2000 - repaired laceration to right hand. had spinal tap to r/o meningitis - had to have blood patch next day Hx Anesthesia Reactions: No - Immunization History Date of Tetanus Vaccine: 2011 Date of Influenza Vaccine: None Infectious Disease History: No Infectious Disease History: Denies: Hx Clostridium Difficile, Hx Hepatitis, Hx Human Immunodeficiency Virus (HIV), Hx of Known/Suspected MRSA, Hx Shingles, Hx Tuberculosis, Hx Known/ Suspected VRE, Hx Known/Suspected VRSA, History Other Infectious Disease, Traveled Outside the [place] in Last 30 Days - Family History Known Family History: Positive: Cardiac Disease - MOM AND DAD BOTH HAD 3V CABG IN THEIR 50s, Hypertension, Diabetes - brother, recent, Other - cancer - Social History Occupation: Employed Full-time Lives: With Family Alcohol Use: Weekly Alcohol Amount: few beers every weekend Hx Substance Use: Yes Substance Use Type: Reports: Marijuana Substance Use Comment - Amount & Last Used: states socially-denies any other drug use Hx Tobacco Use: Yes Smoking Status (MU): Former Smoker Type: Cigarettes Amount Used/How Often: More than 1.5 pack per day Length of Time of Smoking/Using Tobacco: 27 years old Have You Smoked in the Last Year: No Review of Systems Positive: Skin Diaphoresis. Negative: Fever Positive: Other - vision changes Positive: Chest Pain Positive: Nausea. Negative: Vomiting, Diarrhea Positive: Other - LE cramping Positive: Headache Positive: Other - dizziness All Other Systems Reviewed And Are Negative: Yes Physical Exam - Summary Physical Exam Summary: Appearance: Well-appearing, Well-nourished Skin: Warm, Dry, No rash Eyes: Normal, PERRL, EOMI, sclera anicteric ENT: Normal Neck: Supple, nontender Respiratory: Clear to auscultation Cardiovascular: S1, S2, no murmur, no rub, no gallop Abdomen: Soft, nontender, no organomegaly Bowel sounds: Present Musculoskeletal: Normal, Strength/ROM Intact, no edema, pulses symmetrical Neurological: Normal, A&Ox3, cranial nerves II-XII WNL, follows commands, gait not tested, sensation intact to pin and light touch Psychiatric: affect normal, behavior appropriate, dressed appropriately, judgment intact Triage Information Reviewed: Yes Vital Signs On Initial Exam: Initial Vitals Temp Pulse Resp BP Pulse Ox 97.1 F 61 18 165/92 97 09/10/17 17:08 18 17:08 09/10/17 17:08 09/10/17 17:08 09/10/17 17:08 Vital Signs Reviewed: Yes Diagnostics - Vital Signs Vital Signs Temp Pulse Resp BP Pulse Ox 09/10/17 17:08 97.1 F 61 18 165/92 97 - Laboratory Lab Results: Lab Results 09/10/17 09/10/17 09/10/17 Range/Units 18:06 18:06 18:30 WBC 7.6 (3.5-10.8) 10^3/ul RBC 4.74 (4.0-5.4) 10^6/ul Hgb 14.5 (14.0-18.0) g/dl Hct 41 L (42-52) % MCV 85 (80-94) fL MCH 31 (27-31) pg MCHC 36 (31-36) g/dl RDW 13 (10.5-15) % Plt Count 195 (150-450) 10^3/ul MPV 8 (7.4-10.4) um3 Neut % (Auto) 45.5 (38-83) % Lymph % (Auto) 44.9 (25-47) % [place] % (Auto) 8.1 H (0-7) % Eos % (Auto) 0.7 (0-6) % Baso % (Auto) 0.8 (0-2) % Absolute Neuts (auto) 3.5 (1.5-7.7) 10^3/ul Absolute Lymphs (auto) 3.4 (1.0-4.8) 10^3/ul Absolute Monos (auto) 0.6 (0-0.8) 10^3/ul Absolute Eos (auto) 0.1 (0-0.6) 10^3/ul Absolute Basos (auto) 0.1 (0-0.2) 10^3/ul Absolute Nucleated RBC 0 10^3/ul Nucleated RBC % 0.2 Sodium 136 (133-145) mmol/L Potassium TNP Chloride 103 (101-111) mmol/L Carbon Dioxide 27 (22-32) mmol/L Anion Gap 6 (2-11) mmol/L BUN 12 (6-24) mg/dL Creatinine 0.94 (0.67-1.17) mg/dL Est GFR ( Amer) 114.3 (>60) Est GFR (Non-Af Amer) 88.9 (>60) BUN/Creatinine Ratio 12.8 (8-20) Glucose 108 H (70-100) mg/dL Calcium 9.3 (8.6-10.3) mg/dL Total Bilirubin 0.40 (0.2-1.0) mg/dL AST TNP ALT 31 (7-52) U/L Alkaline Phosphatase 64 (34-104) U/L Troponin I 0.00 (<0.04) ng/mL Total Protein 7.1 (6.4-8.9) g/dL Albumin 4.4 (3.2-5.2) g/dL Globulin 2.7 (2-4) g/dL Albumin/Globulin Ratio 1.6 (1-3) Lipase 31 (11.0-82.0) U/L Urine Opiates Screen None detected (None Detect) Ur Barbiturates Screen None detected (None Detect) Ur Phencyclidine Scrn None detected (None Detect) Ur Amphetamines Screen None detected (None Detect) U Benzodiazepines Scrn None detected (None Detect) Urine Cocaine Screen None detected (None Detect) U Cannabinoids Screen None detected (None Detect) Result Diagrams: 09/10/17 18:06 09/10/17 18:06 Lab Statement: Any lab studies that have been ordered have been reviewed, and results considered in the medical decision making process. - Radiology CXR Xray Interpretation: No Acute Changes Radiology Interpretation Completed By: Radiologist - No active cardiopulmonary disease is noted. ED physician has reviewed this imaging report and agrees. - EKG 17:10 Cardiac Rate: NL EKG Rhythm: Sinus Rhythm - 61 BPM Ectopy: None EKG Interpretation: LVH Chest Pain Course/Dx - Course Course Of Treatment: No further CP. No vomiting. Tolerated liquids. The pt will be discharged home. - Diagnoses Provider Diagnoses: post alcohol syndrome Discharge - Discharge Plan Condition: Good Disposition: HOME Discharge Disposition Comment: discharge home Patient Education Materials: Muscle Cramp (ED) Referrals: David Holland, ROSSY [Primary Care Provider] - The documentation as recorded by the Juan F thapa Stephanie accurately reflects the service I personally performed and the decisions made by me, Bharathi Santos MD.
== END 2017-09-10 19:12 | disposition home or self-care (01) ==
LOC: ED 17:07
DX: R07.2 Precordial pain (principal); R61 Generalized hyperhidrosis; R42 Dizziness and giddiness; R51 Headache; R25.2 Cramp and spasm; H53.9 Unspecified visual disturbance; R11.0 Nausea; I10 Essential (primary) hypertension; J45.909 Unspecified asthma, uncomplicated; K21.9 Gastro-esophageal reflux disease without esophagitis; Z87.442 Personal history of urinary calculi; F41.9 Anxiety disorder, unspecified; Z91.030 Bee allergy status; Z91.013 Allergy to seafood; Z87.891 Personal history of nicotine dependence
CPT/HCPCS: 36415; 71046; 80053; 80307; 83690; 84484; 85025; 93005; 99282

== ENCOUNTER → 2018-07-18 08:28 | Emergency (ER) | payer OTHER ==
[~2018-07-18 08:28] MED LIST changes: -Buffered Lidocaine 0.9% SYRIN* 5 ML/SYR SYRINGE INTRADERM ONE; +DiMENhydriNATE IV* 50 MG/ML VIAL IV PUSH ONE; +NS 0.9% 1000 ML** 1,000 ML IV ONE; +PROCHLORPERAZINE INJ 5 MG/ML 2 ML VIAL IV ONE; -Sodium Citrate/Citric Acid* 15 ML UDC PO ONE
[2018-07-18 09:15] LABS: ABS Basophils 0 10^3/ul (0-0.2); ABS Eosinophils 0.1 10^3/ul (0-0.6); ABS Lymphocytes 2.1 10^3/ul (1.0-4.8); ABS Monocytes 0.6 10^3/ul (0-0.8); ABS Neutrophils 4.4 10^3/ul (1.5-7.7); ABS Nucleated RBC 0 10^3/ul; Eosinophil % 1.3 %; Hematocrit 43 % (42-52); Hemoglobin 15.2 g/dl (14.0-18.0); Lymphocyte % 29.4 %; Mean Corpuscular HGB Conc 35 g/dl (31-36); Mean Corpuscular Hemoglobin 30 pg (27-31); Mean Corpuscular Volume 86 fL (80-94); Mean Platelet Volume 7.8 fL (7.4-10.4); Nucleated Red Blood Cells % 0.1; Platelet Count 191 10^3/ul (150-450); Red Blood Count 5.01 10^6/ul (4.00-5.40); Red Cell Distribution Width 13 % (10.5-15); White Blood Count 7.2 10^3/ul (3.5-10.8)
--- NOTE | 2018-07-18 09:22 | ED ---
HPI Chest Pain - HPI Summary HPI Summary: Patient presents with multiple symptoms. States he went to bed at about 8:30 last night as he was quite tired. Woke at 10:30 with sweat and felt like he was starting to get a panic attack (sensation of shortness of breath and chest tightness). He was able to work his way through this with relaxation and breathing. States he woke up multiple times throughout the night not feeling well. Got up this morning and felt left-sided face numbness with left arm tingling and some blurred vision in his left eye. States he got his children off to school on the bus and decided to come here. Currently has some nausea without vomiting or diarrhea. No recent respiratory symptoms, cough although he 's had a headache since last night - dull. Denies numbness tingling or weakness in any extremities, facial drooping, slurring, confusion, changes in memory, difficulty ambulating or balance issues. Daughter has been with him all morning and denies the same. He is a strong family history of cardiovascular disease and reports he's lost about 30 pounds since last year through diet and exercise. Takes a beta joanan , B complex and magnesium for history of low magnesium. He reports an episode of migraine in the past when his magnesium was low and he was stressed. He denies any recent reason for dehydration or poor food intake - has been eating well. Does report he's been under quite a bit of stress. Just with her custody liu with his ex and he now has custody of one of her children. He has mixed emotions about this although he feels it was a retained to do as she is struggling with drug dependence at this time. He has other children in the house and is a single father. Work has been scarce lately and he is worried about how to pay the bills. Confides that he recently went to get financial support through [facility]n social services. Also admits he has quite a bit on his miming goes to bed at night. Drinks alcohol once on the weekends. Smokes marijuana occasionally but no change in supply recently. Denies nicotine use. Denies caffeine use. - History of Current Complaint Chief Complaint: EDChestPainROMI Time Seen by Provider: 07/18/18 08:36 Hx Obtained From: Patient, Family/Veneer Sander - 21 y.o. daughter - pt reports she is his health care proxy Pain Intensity: 5 - Allergy/Home Medications Allergies/Adverse Reactions: Allergies Allergy/AdvReac Type Severity Reaction Status Date / Time bee venom protein (honey bee) Allergy Severe Anaphylatic Verified 07/18/18 09:38 Shock shellfish derived Allergy Severe GI Upset Verified 07/18/18 09:38 Home Medications: Home Medications Magnesium Oxide [Magnesium] 250 mg PO DAILY 07/18/18 [History Confirmed 07/18/18 ] Vitamin B Complex TAB* [B Complex-50*] 1 tab PO DAILY 07/18/18 [History Confirmed 07/18/18] PMH/Surg Hx/FS Hx/Imm Hx Previously Healthy: Yes Endocrine/Hematology History: Denies: Hx Anticoagulant Therapy, Hx Blood Disorders, Hx Diabetes, Hx Thyroid Disease Cardiovascular History: Reports: Hx Hypertension - on atenolol Denies: Hx Congestive Heart Failure, Hx Pacemaker/ICD Respiratory History: Reports: Hx Asthma - INHALER NEEDED (well controlled), Other Respiratory Problems/Disorders - POOR RESPIRATORY TEST 4 yrs ago + skin TB test - had (-) serial CXR's tx'd Denies: Hx Chronic Obstructive Pulmonary Disease (COPD) GI History: Reports: Hx Gastroesophageal Reflux Disease - on med Denies: Hx Ulcer History: Reports: Hx Kidney Stones - 2010 Denies: Hx Dialysis, Hx Renal Disease Musculoskeletal History: Denies: Hx Rheumatoid Arthritis, Hx Osteoporosis Sensory History: Denies: Hx Hearing Aid Neurological History: Reports: Hx Migraine - triggered by low magnesium in the past Psychiatric History: Reports: Hx Anxiety - no meds Denies: Hx Panic Disorder, Hx of Violent Episodes Against Others - Surgical History Surgery Procedure, Year, and Place: October 2010 - Kidney stone removed. tonsillectomy as a child. 2000 - repaired laceration to right hand. had spinal tap to r/o meningitis - had to have blood patch next day Hx Anesthesia Reactions: No - Immunization History Date of Tetanus Vaccine: 2011 Date of Influenza Vaccine: None Infectious Disease History: No Infectious Disease History: Denies: Hx Clostridium Difficile, Hx Hepatitis, Hx Human Immunodeficiency Virus (HIV), Hx of Known/Suspected MRSA, Hx Shingles, Hx Tuberculosis, Hx Known/ Suspected VRE, Hx Known/Suspected VRSA, History Other Infectious Disease, Traveled Outside the [place] in Last 30 Days - Family History Known Family History: Positive: Cardiac Disease - MOM AND DAD BOTH HAD 3V CABG IN THEIR 50s, Hypertension, Diabetes - brother, recent, Other - cancer - Social History 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 Negative: Fever, Chills Eyes: Negative ENT: Negative Cardiovascular: Negative Respiratory: Negative Gastrointestinal: Negative Genitourinary: Negative Musculoskeletal: Negative Skin: Negative Positive: Headache, Paresthesia. Negative: Weakness, Numbness, Syncope, Slurred Speech Psychological: Other - stress All Other Systems Reviewed And Are Negative: Yes Physical Exam Triage Information Reviewed: Yes Vital Signs On Initial Exam: Initial Vitals Temp Pulse Resp BP Pulse Ox 97.8 F 61 18 158/97 99 07/18/18 08:31 07/18/18 08:31 07/18/18 08:31 07/18/18 08:31 07/18/18 08:31 Vital Signs Reviewed: Yes Appearance: Positive: No Pain Distress, Well-Nourished, Ill-Appearing - appears fatigued, generalized pallor Skin: Positive: Warm, Skin Color Reflects Adequate Perfusion, Dry Head/Face: Positive: Normal Head/Face Inspection Eyes: Positive: Normal, EOMI, JAIME - no photophobia, Conjunctiva Clear - anicteric sclera ENT: Positive: Normal ENT inspection, Hearing grossly normal, Pharynx normal, TMs normal. Negative: Nasal congestion, Nasal drainage Neck: Positive: Supple, Nontender Respiratory/Lung Sounds: Positive: Clear to Auscultation, Breath Sounds Present. Negative: Rales, Rhonchi, Wheezes Cardiovascular: Positive: Pulses are Symmetrical in both Upper and Lower Extremities, Bradycardia - pt reports HR is always low, S1, S2. Negative: Murmur, Rub, Leg Edema Left, Leg Edema Right - (-) Ant's B/L Abdomen Description: Positive: Nontender, No Organomegaly, Soft Bowel Sounds: Positive: Present Musculoskeletal: Positive: Normal, Strength/ROM Intact Neurological: Positive: Alert, Oriented to Person Place, Time - see NIH for other details Psychiatric: Positive: Other - calm, low mood but in good spirits - no SI/HI - [place] Coma Scale Best Eye Response: 4 - Spontaneous Best Motor Response: 6 - Obeys Commands Best Verbal Response: 5 - Oriented Coma Scale Total: 15 Diagnostics - Vital Signs Vital Signs Temp Pulse Resp BP Pulse Ox 07/18/18 08:31 97.8 F 61 18 158/97 99 - Laboratory Lab Results: Lab Results 07/18/18 Range/Units 09:06 WBC 7.2 (3.5-10.8) 10^3/ul RBC 5.01 (4.00-5.40) 10^6/ul Hgb 15.2 (14.0-18.0) g/dl Hct 43 (42-52) % MCV 86 (80-94) fL MCH 30 (27-31) pg MCHC 35 (31-36) g/dl RDW 13 (10.5-15) % Plt Count 191 (150-450) 10^3/ul MPV 7.8 (7.4-10.4) fL Neut % (Auto) 60.9 % Lymph % (Auto) 29.4 % [place] % (Auto) 8.0 % Eos % (Auto) 1.3 % Baso % (Auto) 0.4 % Absolute Neuts (auto) 4.4 (1.5-7.7) 10^3/ul Absolute Lymphs (auto) 2.1 (1.0-4.8) 10^3/ul Absolute Monos (auto) 0.6 (0-0.8) 10^3/ul Absolute Eos (auto) 0.1 (0-0.6) 10^3/ul Absolute Basos (auto) 0 (0-0.2) 10^3/ul Absolute Nucleated RBC 0 10^3/ul Nucleated RBC % 0.1 Result Diagrams: 07/18/18 09:06 07/18/18 09:06 Lab Statement: Any lab studies that have been ordered have been reviewed, and results considered in the medical decision making process. Re-Evaluation - Re-Evaluation First Eval Change: Improved - pt's ROSALES, Lt side facial numbness and Lt arm tingling resolved w/ migraine cocktail Chest Pain Course/Dx - Course Course Of Treatment: CXR: no acute findings. ECG: Sinus bradycardia, no ST elevations (NOTE: pt's HR is typically low d/t beta joanna and fitness level - jogs regularly, 30lb weight loss within the year). CT brain: no acute findings. Labs: no acute findings. Suspect Migraine/stress - sx resolved w/ migraine cocktail. Discussed case w/ Dr. King d/t low HR (dipped into high 30' s at times however pt remained asx). Every time I have seen pt, his HR is in the 50's and pressure has been at least 120's systolic. Suspect bradycardia is from his beta joanna. We decided d/c with rest and reducing his dose of atenolol from 50mg to 30mg per dose and monitoring his heart rate - if he has cardiac sx w/ bradycardia or other danger s/sx, advised to return to ED. Pt and daughter agree w/ plan. NOTE: pt looks better prior to d/c - HR in high 50's and BP 130's systolic - good color, appears more alert, sitting up watching TV, visiting with daughter. - Diagnoses Provider Diagnoses: Migraine, Bradycardia, sinus Discharge - Sign-Out/Discharge Documenting (check all that apply): Patient Departure - Discharge Plan Condition: Stable Disposition: HOME Patient Education Materials: Migraine Headache (ED), Stress (ED), Bradycardia ( ED) Referrals: David Holland, [facility] [Primary Care Provider] - Additional Instructions: Your symptoms resolved with a migraine cocktail today - suspect this was the result of stress compounded by poor sleep. Rest, implement stress reduction techniques and follow-up with PCP for counseling services. If you feel like harming yourself or others, please call 911 or return to the ED. Your heart rate was also found to be low today. This is most likely the result of your atentolol and fitness level. It is advised that you monitor your heart rate before next dose - if still low, do not take your atenolol. If moves up above 70 beats per minute, you may take half of your atentolol dose until seen by your PCP Saturday - call today to schedule an appointment. *If you feel worse in the meantime, return to the ED - Billing Disposition and Condition Condition: STABLE Disposition: Home
[2018-07-18 09:41] LABS: Albumin 4.4 g/dL (3.2-5.2); Albumin/Globulin Ratio 1.5 (1-3); BUN/Creatinine Ratio 20.3 (8-20); Calcium 9.9 mg/dL (8.6-10.3); EGFR Non-African American 116.6 (>60); Magnesium 2.1 mg/dL (1.9-2.7); Potassium 4.1 mmol/L (3.5-5.0); Total Bilirubin 0.8 mg/dL (0.2-1.0); Total Protein 7.4 g/dL (6.4-8.9)
[2018-07-18 09:46] LABS: Urine Appearance Cloudy; Urine Bilirubin Negative (Negative); Urine Blood Negative (Negative); Urine Color Yellow; Urine Glucose Negative (Negative); Urine Ketones Negative (Negative); Urine Nitrite Negative (Negative); Urine Protein Negative (Negative); Urine Specific Gravity 1.006 (1.010-1.030); Urine Urobilinogen Negative (Negative)
[2018-07-18 09:46] LABS: CKMB ng/mL 1.5 ng/mL (0.6-6.3)
[2018-07-18 09:59] LABS: Influenza A Molecular NEGATIVE (Negative); Influenza B Molecular NEGATIVE (Negative)
[2018-07-18 10:08] LABS: TSH (Thyroid Stimulating Horm) 1.04 mcIU/mL (0.34-5.60)
[2018-07-18 12:20] LABS: Activated Partial Thrombo Time 35.4 seconds (26.0-36.3); INR 0.91 (0.77-1.02)
[2018-07-18 14:19] VITALS: BP 139/81
== END | disposition home or self-care (01) ==
LOC: ED 08:28
DX: G43.909 Migraine, unspecified, not intractable, without status migrainosus (principal); R00.1 Bradycardia, unspecified; R53.83 Other fatigue; Z87.891 Personal history of nicotine dependence
CPT/HCPCS: 36415; 70450; 71045; 80053; 81003; 82553; 83605; 83735; 84443; 84484; 85025; 85379; 85610; 85730; 93005; 96361; 96374; 96375; 99284; J0780; J1240

== ENCOUNTER 2019-02-02 10:53 | Emergency (ER) | payer OTHER ==
--- OUTSIDE RECORDS SUMMARY | 2019-02-02 11:02 | XMS REPORT | Continuity of Care Document ---
:1975 External Reference #:[id number] Author Name Elmira Devlin Care Team Providers Name Role Phone Mary Steinberg MD Primary Care Physician Unavailable Payers Date Identification Numbers Payment Provider Subscriber Effective: 2009 Policy Number: [id number] David Harry Beltran Expires: 2014 Group Name: [id number] [address] PayID: [id number] [place] [address] Effective: 2015 Policy Number: [id number] David Harry Beltran Group Number: [id number] [address] PayID: [id number] [place] [address] Problems Active Problems Provider Date Lumbosacral spondylosis without Mayur Jadiel Jamison M.D. Onset: 12/21/2014 myelopathy Disturbance in sleep behavior Ilana Dunn MD Onset: 12/09/2015 Obesity Ilana Dunn MD Onset: 12/09/2015 Asthma David Holland NP Onset: 01/01/2017 Palpitations Jon Hernandez M.D., [facility], Onset: 10/01/2018 FASNC Family History Date Family Member(s) Observation Comments General Heart Disease General Cervical Cancer General MGM cancer Father Diabetes Type II Father Heart Disease Mother Heart Disease Mother Cervical Cancer at age 55 Siblings Brother w/DM,HTN Siblings Brother w/HTN Maternal Grandfather due to Natural Causes () Maternal Grandmother due to Cancer, Lung () Social History Type Date Description Comments Sex Unknown Marital Status Significant Other Lives With Alone Occupation Currently Working [employer] Tobacco Use Start: Unknown Quit 2 weeks ago as of Smoked for 25 yrs 12/09/15 ETOH Use Currently consumes 6 drinks/week alcohol Recreational Drug Use Current Drug User Marijuana Tobacco Use Start: Unknown Patient is a former End: Unknown smoker Recreational Drug Use Former Drug User Cocaine Smoking Status Reviewed: 01/29/19 Patient is a former smoker Exercise Type/Frequency Exercises rarely Allergies, Adverse Reactions, Alerts Active Allergies Reaction Severity Comments Date Bee Sting resp distress 08/25/2009 Shellfish-derived Products 02/25/2014 Inactive Allergies NKDA 09/23/2008 Medications Active Medications SIG Qnty Indications Ordering Date Provider Cyclobenzaprine HCL 1 by mouth at 7tabs R25.2 Mary Steinberg MD 01/29/2019 10mg night Tablets Epinephrine 1 injection as 1units David Holland NP 12/03/2018 0.3mg/0.3ML needed allergic Solution Auto-Inject reaction Atenolol 1 by mouth every 90tabs David Holland NP 10/01/2018 25mg Tablets day Amlodipine Besylate Take 1 Tablet By 30tabs David Holland NP 09/12/2018 5mg Mouth Every Day Tablets Blood Pressure Monitor check bp twice 1units I10 David Holland NP 07/21/2018 Auto Inflate weekly at home Misc Fluticasone Propionate 2 sprays each 16units R51 David Holland NP 11/04/2017 nostril qd.prn 50mcg/Act Suspension Ventolin HFA 2 puffs by mouth 1units David Holland NP 03/29/2017 108(90Base) four times a day mcg/Act Aerosol as needed Albuterol 2 puffs four 1units J45.20 David Holland NP 90mcg/Act Aerosol times a day as needed Tylenol Extra Strength 2 by mouth as Unknown needed 500mg Tablets Multi For Him 1 by mouth every Unknown Capsules day Magnesium OTC 1 by mouth Unknown 250mg Tablets every day Vitamin B Complex 1 by mouth every Unknown Tablets day History Medications Azithromycin 2 tabs by mouth 6tabs J45.20 David Holland 12/24/2018 - 250mg Tablets every day x1 day, [employer] 12/30/2018 1 tab by mouth every day x 4 days Benzonatate take one or two 30caps J06.9 David Holland, 12/24/2018 - 100mg Capsules capsules every 8 [employer] 12/31/2018 hours as needed for cough. Amlodipine Besylate 1 by mouth every 30tabs David Holland, 08/08/2018 - 2.5mg day [employer] 09/12/2018 Tablets Methylprednisolone as directed on QS M54.5 David Holland, 03/13/2018 - 4mg TBPK package [employer] 03/20/2018 Meloxicam 1 -2 tablet by 30tabs M54.5 David Holland, 03/13/2018 - 7.5mg Tablets mouth once daily [employer] 05/16/2018 as needed (Do Not start until medrol dose pack completed) Baclofen take 1/2-1 tab 30tabs M54.5 David Holland, 03/13/2018 - 10mg Tablets every 8 hours as [employer] 05/16/2018 needed for muscle spasm Hydrocodone-Acetaminoph take 1-2 tablets 28tabs M54.5 David Holland, 2017 - en every 12 hours for [employer] 05/16/2018 5-325mg Tablets pain. Naproxen 1 tablet with food 30tabs M79.641 David Holland, 08/26/2017 - 500mg Tablets by mouth twice a [employer] 03/13/2018 day Thumb Splint/Right XL Thumb spica for 1units M79.641 David Holland, 2017 - Misc right hand, wear [employer] 12/16/2018 during the day Methylprednisolone use per directions 1units M54.5 Jeremiah Seth 07/30/2017 - 4mg TBPK Carlo Hutchinson 08/26/2017 Cyclobenzaprine HCL one by mouth three 18tabs M54.5 Jeremiah Seth 07/30/2017 - 10mg times a day as Carlo Hutchinson 08/26/2017 Tablets needed spasm Amoxicillin/Clavulanate take 1 tab by 14tabs J02.9 Brandon Hassan 2016 - Potassium mouth twice a day [place], 07/03/2017 875-125mg Tablets for 7 days CRISTINO Matos Proair HFA 2 puffs by mouth 8.5units David Holland, 03/29/2017 - 108(90Base) every 4 hours as [employer]IATE 03/29/2017 mcg/Act Aerosol needed Advair Diskus inhale 1 puff by 14units R06.02 David Holland, 03/29/2017 - mouth twice a day. [employer] 04/15/2017 250-50mcg/Dose Aerosol rinse mouth after use (sample) Azithromycin 2 tabs by mouth 6tabs R06.02 David Holland, 03/29/2017 - 250mg Tablets every day x1 day, [employer]IATE 04/03/2017 1 tab by mouth every day x 4 days Hydrocodone-Acetaminoph 1 tablet by mouth 14tabs K80.10 Vinh Casas 2016 - en every 4 hours as MD Kalpesh, 03/29/2017 5-325mg Tablets needed pain FACS Ketorolac Tromethamine one tablet every 8 15tabs R10.11 David Holland, 2016 - 10mg hours as needed [employer] 03/29/2017 Tablets pain Acetaminophen-Codeine 1-2 tablets every 42tabs R10.11 David Holland, 2016 - #3 8 hours (mdd [employer] 03/29/2017 300-30mg Tablets acetominophen 4g) Montelukast Sodium 1 by mouth every 30tabs R06.02 David Holland, 12/26/2016 - 10mg day [employer] 03/29/2017 Tablets Ventolin HFA 2 puffs by mouth Unknown 12/08/2015 - 108(90Base) four times a day 12/08/2015 mcg/Act Aerosol as needed Ergocalciferol take 1 capsule by 14caps Otilio 10/28/2015 - [id number] mouth once weekly Carlo Ribeiro 12/26/2016 Capsules Sulfasalazine take one tab by 42tabs M25.572 Otilio 10/26/2015 - 500mg Tablets mouth daily for 1 Carlo Ribeiro 12/26/2016 week then 1 tab twice daily ongoing Tylenol With Codeine #3 1-2 tabs q 6 hrs 24tabs Jeremiah Seth 01/04/2010 - imelda Hutchinson M.D. 02/25/2014 300-30mg Tablets Light Duty No bending, 786.50 Jeremiah Seth 01/04/2010 - lifting, twistingEvangelina M.D. 02/25/2014 or heavy use of l arm Zantac 1 tab po bid 60tabs 530.81 Joe, 10/10/2009 - 300mg Tablets Radomir, 09/18/2015 Carlo Nicoderm CQ 1 patch daily 14units 305.1 Joe, 09/21/2009 - 21mg/24HR Radomir, 02/25/2014 Patches 24HR Carlo Doxycycline Hyclate 1 tablet po bid x 20caps 706.1 Joe, 08/11/2009 - 100mg 10 days Radomir, 08/25/2009 Capsules Carlo Cleocin-T 1 application 1tube 706.1 Joe, 08/11/2009 - 1% Gel daily Radomir, 02/25/2014 Carlo Zantac 1 po bid prn 60tabs 530.81 Thananart, 10/01/2008 - 150mg Tablets Carlo Villatoro 10/10/2009 Mucinex bid 30tabs 466.0 Thananart, 10/01/2008 - 600mg Tablets ER Carlo Villatoro 08/25/2009 12HR Nicotine Apply one patch 30units 305.1 Thanana, 10/01/2008 - 14mg/24HR Patches daily Carlo Villatoro 08/25/2009 24HR Avelox 1 qd x 10 days 10tabs 466.0 Thananart, 10/01/2008 - 400mg Tablets Carlo Villatoro 08/25/2009 Chantix take as directed 1tabs V70.0 Thanana, 09/23/2008 - Starting Month Pack Carlo Villatoro 08/25/2009 Tablets Chantix 1 po bid 60tabs V70.0 Thananart, 09/23/2008 - 1mg Tablets Carlo Villatoro 10/01/2008 Cyclobenzaprine HCL Carlyle Luna - 10mg M., DO 12/21/2014 Tablets Oxycodone-Acetaminophen Carlyle Luna - M., DO 12/21/2014 5-325mg Tablets Doxycycline Hyclate 1 po qd Unknown - 100mg 10/19/2015 Capsules Ketorolac Tromethamine 1 by mouth every 6 Unknown - 10mg hour prn 12/08/2015 Tablets Pantoprazole Sodium 1 by mouth every 90tabs K21.9 Latia - 20mg day Barrera, [employer]IATE 05/16/[address] Lantigua Vitamin 1 by mouth every Unknown - Tablets day 10/19/2015 Multi For Him 50+ 1 by mouth every Unknown - Tablets day 07/29/2017 Elidel Unknown - 1% Cream 08/26/2017 Atenolol Take 1/2 Tablet By 30tabs David Holland, - 50mg Tablets Mouth Every Day [employer] 08/08/2018 Medications Administered in Office Medication SIG Qnty Indications Ordering Provider Date Depomedrol 40MG Patti Espinosa, RPA-C 03/19/2018 Injection Depomedrol 40MG Patti Espinosa, RPA-C 08/29/2017 Injection Vital Signs Date Vital Result Comment 01/29/2019 11:00am Height 72 inches 6'0" Weight 221.00 lb Heart Rate 48 /min BP Systolic Sitting 120 mmHg BP Diastolic Sitting 75 mmHg Body Temperature 97.4 F O2 % BldC Oximetry 96 % BMI (Body Mass Index) 30.0 kg/m2 12/24/2018 1:38pm Height 72 inches 6'0" Weight 227.00 lb Heart Rate 71 /min BP Systolic 121 mmHg BP Diastolic 68 mmHg Body Temperature 100.4 F O2 % BldC Oximetry 96 % BMI (Body Mass Index) 30.8 kg/m2 10/01/2018 9:21am Height 72 inches 6'0" Weight 224.00 lb Heart Rate 78 /min BP Systolic Sitting 138 mmHg lue reg cuff BP Diastolic Sitting 72 mmHg lue reg cuff BP Systolic Standing 142 mmHg lue reg cuff BP Diastolic Standing 72 mmHg lue reg cuff Respiratory Rate 16 /min BMI (Body Mass Index) 30.4 kg/m2 Ejection Fraction 55-60% echo. 09/09/18 09/12/2018 4:33pm Height 72 inches 6'0" Weight 224.00 lb Heart Rate 56 /min BP Systolic 137 mmHg BP Diastolic 83 mmHg Body Temperature 97.7 F O2 % BldC Oximetry 98 % BMI (Body Mass Index) 30.4 kg/m2 08/08/2018 2:27pm Height 72 inches 6'0" Weight 221.00 lb Heart Rate 52 /min BP Systolic Sitting 124 mmHg BP Diastolic Sitting 79 mmHg O2 % BldC Oximetry 95 % BMI (Body Mass Index) 30.0 kg/m2 07/21/2018 10:07am Height 72 inches 6'0" Weight 222.00 lb Heart Rate 45 /min BP Systolic Sitting 127 mmHg BP Diastolic Sitting 71 mmHg Body Temperature 97.5 F O2 % BldC Oximetry 98 % BMI (Body Mass Index) 30.1 kg/m2 06/13/2018 9:04am Height 72 inches 6'0" Weight 214.00 lb Heart Rate 49 /min BP Systolic 135 mmHg BP Diastolic 74 mmHg O2 % BldC Oximetry 98 % BMI (Body Mass Index) 29.0 kg/m2 05/16/2018 9:22am Height 72 inches 6'0" Weight 215.00 lb Heart Rate 51 /min BP Systolic 146 mmHg BP Diastolic 80 mmHg BP Systolic Recheck 132 mmHg BP Diastolic Recheck 78 mmHg Body Temperature 97.1 F O2 % BldC Oximetry 99 % BMI (Body Mass Index) 29.2 kg/m2 03/19/2018 2:39pm Height 72 inches 6'0" Weight 220.00 lb Heart Rate 70 /min BP Systolic 120 mmHg BP Diastolic 72 mmHg Respiratory Rate 12 /min Pain Level 5 BMI (Body Mass Index) 29.8 kg/m2 03/13/2018 10:33am Height 72 inches 6'0" Weight 224.00 lb Heart Rate 60 /min BP Systolic Sitting 138 mmHg BP Diastolic Sitting 82 mmHg O2 % BldC Oximetry 97 % BMI (Body Mass Index) 30.4 kg/m2 11/04/2017 8:49am Weight 242.75 lb Heart Rate 57 /min BP Systolic 120 mmHg BP Diastolic 76 mmHg Body Temperature 96.1 F O2 % BldC Oximetry 97 % 09/19/2017 3:59pm Weight 246.25 lb Heart Rate 60 /min BP Systolic 124 mmHg BP Diastolic 66 mmHg Body Temperature 97.7 F O2 % BldC Oximetry 95 % 08/29/2017 3:23pm Height 70 inches 5'10" Weight 247.00 lb Heart Rate 62 /min BP Systolic 126 mmHg BP Diastolic 80 mmHg Respiratory Rate 18 /min Body Temperature 98.3 F Pain Level 4 BMI (Body Mass Index) 35.4 kg/m2 08/26/2017 10:07am Weight 252.00 lb with shoes Heart Rate 51 /min BP Systolic 134 mmHg BP Diastolic 94 mmHg BP Systolic Recheck 124 mmHg BP Diastolic Recheck 78 mmHg O2 % BldC Oximetry 97 % 08/15/2017 10:01am Weight 240.00 lb Heart Rate 63 /min BP Systolic 122 mmHg BP Diastolic 80 mmHg Body Temperature 98.0 F O2 % BldC Oximetry 99 % 07/30/2017 1:04pm Weight 245.00 lb Heart Rate 55 /min BP Systolic Sitting 138 mmHg BP Diastolic Sitting 90 mmHg Body Temperature 97.8 F Pain Level 8 lower back to hips O2 % BldC Oximetry 98 % 06/21/2017 12:50pm Weight 245.00 lb Heart Rate 73 /min BP Systolic Sitting 120 mmHg BP Diastolic Sitting 82 mmHg Body Temperature 98.7 F O2 % BldC Oximetry 96 % 04/24/2017 1:33pm Heart Rate 58 /min BP Systolic Sitting 128 mmHg BP Diastolic Sitting 70 mmHg Body Temperature 98.6 F O2 % BldC Oximetry 98 % 03/29/2017 4:26pm Weight 231.00 lb Heart Rate 52 /min BP Systolic Sitting 116 mmHg BP Diastolic Sitting 70 mmHg Body Temperature 97.8 F O2 % BldC Oximetry 98 % 03/12/2017 8:44am Heart Rate 64 /min BP Systolic 136 mmHg BP Diastolic 80 mmHg Respiratory Rate 18 /min Body Temperature 97.0 F 02/28/2017 9:57am Height 71 inches 5'11" Weight 245.00 lb Heart Rate 58 /min BP Systolic 130 mmHg BP Diastolic 80 mmHg Respiratory Rate 16 /min Body Temperature 96.9 F BMI (Body Mass Index) 34.2 kg/m2 02/07/2017 2:53pm Weight 247.00 lb Heart Rate 55 /min BP Systolic Sitting 120 mmHg BP Diastolic Sitting 88 mmHg Respiratory Rate 16 /min Body Temperature 98.2 F Pain Level 3 O2 % BldC Oximetry 95 % 12/26/2016 8:38am Height 61.5 inches 5'1.50" Weight 246.50 lb Heart Rate 51 /min BP Systolic 124 mmHg BP Diastolic 76 mmHg Body Temperature 97.3 F O2 % BldC Oximetry 98 % BMI (Body Mass Index) 45.8 kg/m2 12/09/2015 8:57am Height 72 inches 6'0" Weight 225.00 lb Heart Rate 62 /min BP Systolic Sitting 142 mmHg BP Diastolic Sitting 80 mmHg Respiratory Rate 14 /min O2 % BldC Oximetry 97 % BMI (Body Mass Index) 30.5 kg/m2 Neck Circumference in inches 18 10/26/2015 12:47pm Height 72 inches 6'0" Weight 230.00 lb Heart Rate 60 /min BP Systolic Sitting 124 mmHg BP Diastolic Sitting 74 mmHg Respiratory Rate 14 /min Pain Level 8 BMI (Body Mass Index) 31.2 kg/m2 10/20/2015 3:35pm Height 72 inches 6'0" Weight 231.00 lb Heart Rate 58 /min BP Systolic Sitting 108 mmHg BP Diastolic Sitting 60 mmHg Respiratory Rate 14 /min Body Temperature 97.6 F BMI (Body Mass Index) 31.3 kg/m2 12/21/2014 3:19pm Height 72 inches 6'0" Weight 220.00 lb Heart Rate 86 /min BP Systolic Sitting 140 mmHg BP Diastolic Sitting 90 mmHg Pain Level 2 back BMI (Body Mass Index) 29.8 kg/m2 02/25/2014 8:52am Height 72 inches 6'0" Weight 220.00 lb Heart Rate 60 /min BP Systolic Sitting 120 mmHg BP Diastolic Sitting 80 mmHg Body Temperature 98.4 F Pain Level 4 bacl BMI (Body Mass Index) 29.8 kg/m2 01/04/2010 2:32pm Weight 212.00 lb Heart Rate 72 /min BP Systolic Sitting 130 mmHg BP Diastolic Sitting 80 mmHg 09/21/2009 9:46am Weight 218.00 lb Heart Rate 76 /min BP Systolic Sitting 126 mmHg BP Diastolic Sitting 90 mmHg 08/25/2009 3:42pm Height 72 inches 6'0" Weight 220.50 lb Heart Rate 80 /min BP Systolic Sitting 152 mmHg BP Diastolic Sitting 90 mmHg BMI (Body Mass Index) 29.9 kg/m2 08/25/2009 1:44pm Height 72 inches 6'0" Weight 219.00 lb Heart Rate 62 /min BP Systolic Sitting 140 mmHg BP Diastolic Sitting 80 mmHg BP Systolic Standing 140 mmHg BP Diastolic Standing 82 mmHg BP Systolic Lying Down 140 mmHg BP Diastolic Lying Down 80 mmHg Respiratory Rate 16 /min BMI (Body Mass Index) 29.7 kg/m2 08/11/2009 10:52am Height 73 inches 6'1" Weight 217.00 lb Heart Rate 68 /min BP Systolic Sitting 136 mmHg BP Diastolic Sitting 90 mmHg BMI (Body Mass Index) 28.6 kg/m2 10/01/2008 9:07am Height 73 inches 6'1" Weight 216.00 lb Heart Rate 76 /min BP Systolic Sitting 138 mmHg BP Diastolic Sitting 80 mmHg Body Temperature 98.5 F BMI (Body Mass Index) 28.5 kg/m2 09/23/2008 2:05pm Height 73 inches 6'1" Weight 216.00 lb Heart Rate 68 /min BP Systolic Sitting 156 mmHg BP Diastolic Sitting 90 mmHg Body Temperature 98.2 F BMI (Body Mass Index) 28.5 kg/m2 Results Test Date Facility Test Result H/L Range Note Laboratory test 12/24/2018 [facility] Influenza A/B negative A&B finding Rapid CBC Auto Diff 09/08/2018 [facility] White Blood 8.2 10^3/uL N 3.5-10.[address] [place] [address] [phone] Red Blood Count 4.93 10^6/uL N 4.00-5.40 Hemoglobin 14.6 g/dL N 14.0-18.0 Hematocrit 43 % N 42-52 Mean Corpuscular Volume 86 fL N 80-94 Mean Corpuscular Hemoglobin 30 pg N 27-31 Mean Corpuscular HGB Conc 34 g/dL N 31-36 Red Cell Distribution Width 13 % N 10.5-15 Platelet Count 212 10^3/uL N 150-450 Mean Platelet Volume 7.6 fL N 7.4-10.4 Abs Neutrophils 4.5 10^3/uL N 1.5-7.7 Abs Lymphocytes 2.9 10^3/uL N 1.0-4.8 Abs Monocytes 0.7 10^3/uL N 0-0.8 Abs Eosinophils 0.1 10^3/uL N 0-0.6 Abs Basophils 0 10^3/uL N 0-0.2 Abs Nucleated RBC 0 10^3/uL Granulocyte % 55.2 % Lymphocyte % 35.1 % Monocyte % 8.2 % Eosinophil % 1.0 % Basophil % 0.5 % Nucleated Red Blood Cells % 0.1 Laboratory test 09/08/2018 [facility] Lactic Acid 0.8 mmol/L N 0.5-2.0 [address] [place] [address] [phone] Comp Metabolic 09/08/2018 [facility] Sodium 138 mmol/L N 135- [address] [place] [address] [phone] Potassium 3.9 mmol/L N 3.5-5.0 Chloride 103 mmol/L N 101-111 Co2 Carbon Dioxide 28 mmol/L N 22-32 Anion Gap 7 mmol/L N 2-11 Glucose 94 mg/dL N 70-100 Blood Urea Nitrogen 12 mg/dL N 6-24 Creatinine 0.80 mg/dL N 0.67-1.17 BUN/Creatinine Ratio 15.0 N 8-20 Calcium 9.3 mg/dL N 8.6-10.3 Total Protein 7.4 g/dL N 6.4-8.9 Albumin 4.6 g/dL N 3.2-5.2 Globulin 2.8 g/dL N 2-4 Albumin/Globulin Ratio 1.6 N 1-3 Total Bilirubin 0.50 mg/dL N 0.2-1.0 Alkaline Phosphatase 57 U/L N 34-104 Alt 31 U/L N 7-52 Ast 27 U/L N 13-39 Egfr Non- 106.5 >60 Egfr 128.9 >60 2 Laboratory test 09/08/2018 [facility] Troponin-I (TnI) 0.00 ng/ mL <0.04 3 finding [address] [place] [address] [phone] TSH (Thyroid Stim Horm) 1.53 mcIU/mL N 0.34-5.60 Laboratory test 09/08/2018 [facility] Lipase 19 U/L N 11.0- 82.0 finding [address] [place] [address] [phone] Laboratory test 07/18/2018 [facility] Troponin-I 0.00 <0.04 4 finding 101 (TnI) ng/[place] [address] [phone] Laboratory test 07/18/2018 [facility] Troponin-I 0.00 <0.[address] (TnI) ng/[place] [address] [phone] Laboratory test 07/18/2018 [facility] TSH (Thyroid 1.04 N 0.34 -5.[address] Stim Horm) mcIU/[place] [address] [phone] CKMB 07/18/2018 [facility] CKMB ng/mL 1.5 ng/mL N 0.6-6.3 [address] [place] [address] [phone] Laboratory test 07/18/2018 [facility] Magnesium 2.1 mg/dL N 1.9-2.7 finding [address] [place] [address] [phone] Troponin-I (TnI) 0.00 ng/mL <0.04 6 Rapid Influenza 07/18/2018 [facility] Influenza A NEGATIVE Negative 7 A & B Molecular [address] [place] [address] [phone] Influenza B Molecular NEGATIVE Negative Laboratory test 07/18/2018 [facility] Rapid Influenza SEE RESULT 8 finding [address] [facility] [place] [address] [phone] Urinalysis Profile 07/18/2018 [facility] Urine Color Yellow [address] [place] [address] [phone] Urine Appearance Cloudy Urine Specific [place] 1.006 Low 1.010-1.030 Urine pH 7.0 N 5-9 Urine Urobilinogen Negative Negative Urine Ketones Negative Negative Urine Protein Negative Negative Urine Leukocytes Negative Negative Urine Blood Negative Negative Urine Nitrite Negative Negative Urine Bilirubin Negative Negative Urine Glucose Negative Negative Inr/Protime 07/18/2018 [facility] Inr 0.91 N 0.77-1.02 [address] [place] [address] [phone] Laboratory test 07/18/2018 [facility] Partial 35.4 seconds N 26.0-36.3 finding [address] [facility] [place] [address] PTT [phone] D Dimer Quantitative < 200 ng/mL N Less Than 230 9 Comp Metabolic Panel 07/18/2018 [facility] Sodium 137 mmol/L N 135-145 [address] [place] [address] [phone] Potassium 4.1 mmol/L N 3.5-5.0 Chloride 103 mmol/L N 101-111 Co2 Carbon Dioxide 27 mmol/L N 22-32 Anion Gap 7 mmol/L N 2-11 Glucose 138 mg/dL High 70-100 Blood Urea Nitrogen 15 mg/dL N 6-24 Creatinine 0.74 mg/dL N 0.67-1.17 BUN/Creatinine Ratio 20.3 High 8-20 Calcium 9.9 mg/dL N 8.6-10.3 Total Protein 7.4 g/dL N 6.4-8.9 Albumin 4.4 g/dL N 3.2-5.2 Globulin 3.0 g/dL N 2-4 Albumin/Globulin Ratio 1.5 N 1-3 Total Bilirubin 0.80 mg/dL N 0.2-1.0 Alkaline Phosphatase 61 U/L N 34-104 Alt 25 U/L N 7-52 Ast 21 U/L N 13-39 Egfr Non- 116.6 >60 Egfr 141.0 >60 10 Laboratory test 07/18/2018 [facility] Lactic Acid 1.3 mmol/L N 0.5-2.0 [address] [place] [address] [phone] CBC Auto Diff 07/18/2018 [facility] White Blood 7.2 10^3/uL N 3.5-10.[address] [place] [address] [phone] Red Blood Count 5.01 10^6/uL N 4.00-5.40 Hemoglobin 15.2 g/dL N 14.0-18.0 Hematocrit 43 % N 42-52 Mean Corpuscular Volume 86 fL N 80-94 Mean Corpuscular Hemoglobin 30 pg N 27-31 Mean Corpuscular HGB Conc 35 g/dL N 31-36 Red Cell Distribution Width 13 % N 10.5-15 Platelet Count 191 10^3/uL N 150-450 Mean Platelet Volume 7.8 fL N 7.4-10.4 Abs Neutrophils 4.4 10^3/uL N 1.5-7.7 Abs Lymphocytes 2.1 10^3/uL N 1.0-4.8 Abs Monocytes 0.6 10^3/uL N 0-0.8 Abs Eosinophils 0.1 10^3/uL N 0-0.6 Abs Basophils 0 10^3/uL N 0-0.2 Abs Nucleated RBC 0 10^3/uL Granulocyte % 60.9 % Lymphocyte % 29.4 % Monocyte % 8.0 % Eosinophil % 1.3 % Basophil % 0.4 % Nucleated Red Blood Cells % 0.1 Comp Metabolic Panel 05/21/2018 [facility] Sodium 140 mmol/L N 135-[address] [place] [address] [phone] Potassium 4.2 mmol/L N 3.5-5.0 Chloride 103 mmol/L N 101-111 Co2 Carbon Dioxide 32 mmol/L N 22-32 Anion Gap 5 mmol/L N 2-11 Glucose 100 mg/dL N 70-100 Blood Urea Nitrogen 15 mg/dL N 6-24 Creatinine 0.87 mg/dL N 0.67-1.17 BUN/Creatinine Ratio 17.2 N 8-20 Calcium 10.0 mg/dL N 8.6-10.3 Total Protein 7.3 g/dL N 6.4-8.9 Albumin 4.6 g/dL N 3.2-5.2 Globulin 2.7 g/dL N 2-4 Albumin/Globulin Ratio 1.7 N 1-3 Total Bilirubin 0.40 mg/dL N 0.2-1.0 Alkaline Phosphatase 64 U/L N 34-104 Alt 23 U/L N 7-52 Ast 20 U/L N 13-39 Egfr Non- 96.7 >60 Egfr 117.0 >60 12 CBC Auto Diff 05/21/2018 [facility] White Blood 6.6 10^3/uL N 3.5-10.[address] [place] [address] [phone] Red Blood Count 4.97 10^6/uL N 4.00-5.40 Hemoglobin 14.9 g/dL N 14.0-18.0 Hematocrit 43 % N 42-52 Mean Corpuscular Volume 87 fL N 80-94 Mean Corpuscular Hemoglobin 30 pg N 27-31 Mean Corpuscular HGB Conc 35 g/dL N 31-36 Red Cell Distribution Width 13 % N 10.5-15 Platelet Count 195 10^3/uL N 150-450 Mean Platelet Volume 7.8 fL N 7.4-10.4 Abs Neutrophils 3.1 10^3/uL N 1.5-7.7 Abs Lymphocytes 2.7 10^3/uL N 1.0-4.8 Abs Monocytes 0.7 10^3/uL N 0-0.8 Abs Eosinophils 0.1 10^3/uL N 0-0.6 Abs Basophils 0.1 10^3/uL N 0-0.2 Abs Nucleated RBC 0 10^3/uL Granulocyte % 47.2 % N 38-83 Lymphocyte % 40.2 % N 25-47 Monocyte % 10.6 % High 0-7 Eosinophil % 1.2 % N 0-6 Basophil % 0.8 % N 0-2 Nucleated Red Blood Cells % 0.1 Laboratory test 05/21/2018 [facility] Ferritin 158.1 ng/mL N 24-[address] [place] [address] [phone] Magnesium 2.2 mg/dL N 1.9-2.7 TSH (Thyroid Stim Horm) 1.18 mcIU/mL N 0.34-5.60 Vitamin B12 493 pg/mL N 180-914 13 Hemoglobin A1c (Glyco HGB) 5.3 % N 4.0-5.6 14 Laboratory test 09/23/2017 [facility] Magnesium 1.9 mg/dL N 1.9-2.[address] [place] [address] [phone] TSH (Thyroid Stim Horm) 2.96 mcIU/mL N 0.34-5.60 Lyme Disease Serology Negative Negative 15 Vitamin B12 384 pg/mL N 180-914 16 Hemoglobin A1c (Glyco HGB) 5.5 % N 4.0-5.6 17 Urine Drug 09/10/2017 [facility] Amphetamine Ur None Detected None Detect SCR ED & [address] [place] [address] [phone] Barbiturates Urine Screen None Detected None Detect Benzodiazepine Urine Screen None Detected None Detect Urine Cannabinoids Screen None Detected None Detect Urine Cocaine Screen None Detected None Detect Urine Opiates Screen None Detected None Detect Urine Phencyclidine Screen None Detected None Detect 18 CBC Auto Diff 09/10/2017 [facility] White Blood 7.6 10^3/uL N 3.5-10.[address] [place] [address] [phone] Red Blood Count 4.74 10^6/uL N 4.0-5.4 Hemoglobin 14.5 g/dL N 14.0-18.0 Hematocrit 41 % Low 42-52 Mean Corpuscular Volume 85 fL N 80-94 Mean Corpuscular Hemoglobin 31 pg N 27-31 Mean Corpuscular HGB Conc 36 g/dL N 31-36 Red Cell Distribution Width 13 % N 10.5-15 Platelet Count 195 10^3/uL N 150-450 Mean Platelet Volume 8 um3 N 7.4-10.4 Abs Neutrophils 3.5 10^3/uL N 1.5-7.7 Abs Lymphocytes 3.4 10^3/uL N 1.0-4.8 Abs Monocytes 0.6 10^3/uL N 0-0.8 Abs Eosinophils 0.1 10^3/uL N 0-0.6 Abs Basophils 0.1 10^3/uL N 0-0.2 Abs Nucleated RBC 0 10^3/uL Granulocyte % 45.5 % N 38-83 Lymphocyte % 44.9 % N 25-47 Monocyte % 8.1 % High 0-7 Eosinophil % 0.7 % N 0-6 Basophil % 0.8 % N 0-2 Nucleated Red Blood Cells % 0.2 Comp Metabolic Panel 09/10/2017 [facility] Sodium 136 mmol/L N 133-[address] [place] [address] [phone] Chloride 103 mmol/L N 101-111 Co2 Carbon Dioxide 27 mmol/L N 22-32 Glucose 108 mg/dL High 70-100 Blood Urea Nitrogen 12 mg/dL N 6-24 Creatinine 0.94 mg/dL N 0.67-1.17 BUN/Creatinine Ratio 12.8 N 8-20 Calcium 9.3 mg/dL N 8.6-10.3 19 Total Protein 7.1 g/dL N 6.4-8.9 Albumin 4.4 g/dL N 3.2-5.2 Globulin 2.7 g/dL N 2-4 Albumin/Globulin Ratio 1.6 N 1-3 Total Bilirubin 0.40 mg/dL N 0.2-1.0 Alkaline Phosphatase 64 U/L N 34-104 Alt 31 U/L N 7-52 Egfr Non- 88.9 >60 Egfr 114.3 >60 20 Potassium TNP mmol/L 3.5-5.0 21 Anion Gap 6 mmol/L N 2-11 Ast TNP U/L 13-39 22 Laboratory test finding 09/10/2017 [facility] Lipase 31 U/L N 11.0-82.[address] [place] [address] [phone] Troponin-I (TnI) 0.00 ng/mL <0.04 Rapid Influenza 08/12/2017 [facility] Influenza A NEGATIVE Negative 23 A & B Molecular [address] [place] [address] [phone] Influenza B Molecular NEGATIVE Negative Laboratory test 08/12/2017 [facility] Rapid Strep Negative Negative [address] [place] [address] [phone] Laboratory test 06/21/2017 [facility] Rapid Group A neg finding Strep Urinalysis 05/28/2017 [facility] Urine Color Yellow Profile [address] [place] [address] [phone] Urine Appearance Clear Urine Specific [place] 1.012 N 1.010-1.030 Urine pH 6.0 N 5-9 Urine Urobilinogen Negative Negative Urine Ketones Negative Negative Urine Protein Negative Negative Urine Leukocytes Negative Negative Urine Blood 3+ Abnormal Negative Urine Nitrite Negative Negative Urine Bilirubin Negative Negative Urine Glucose Negative Negative Urine White Blood Cell Trace(0-5/hpf) Absent Urine Red Blood Cell 3+(>10/hpf) Abnormal Absent Urine Bacteria Absent Absent Quantiferon Gold 05/02/2017 [facility] M tuberculosis Negative N Negative [address] [place] [address] [phone] TB Ag minus Nil Result 0.34 IU/mL N TB Mitogen minus Nil Result > 10.00 IU/mL N TB Nil Result 0.07 IU/mL N 26 Laboratory test 03/06/2017 [facility] Surgical SEE RESULT [address] [place] [address] [phone] Urine Culture And 02/23/2017 [facility] Urine Culture SEE RESULT [address] [place] [address] [phone] Laboratory test 02/23/2017 [facility] Lactic Acid 0.6 mmol/L N 0.5-2 [address]0 [place] [address] [phone] Inr/Protime 02/23/2017 [facility] Inr 0.98 N 0.89- [address] 1.11 [place] [address] [phone] Urinalysis Profile 02/23/2017 [facility] Urine Color Yellow N [address] [place] [address] [phone] Urine Appearance Clear N Urine Specific [place] 1.006 Low 1.010-1.030 Urine pH 7.0 N 5-9 Urine Urobilinogen Negative N Negative Urine Ketones Negative N Negative Urine Protein Negative N Negative Urine Leukocytes Trace Abnormal Negative Urine Blood Negative N Negative Urine Nitrite Negative N Negative Urine Bilirubin Negative N Negative Urine Glucose Negative N Negative Urine White Blood Cell Trace(0-5/hpf) N Absent Urine Red Blood Cell Absent N Absent Urine Bacteria Absent N Absent CBC Auto Diff 02/23/2017 [facility] White Blood 6.1 10^3/uL N 3.5-10.[address] [place] [address] [phone] Red Blood Count 4.50 10^6/uL N 4.0-5.4 Hemoglobin 13.6 g/dL Low 14.0-18.0 Hematocrit 39 % Low 42-52 Mean Corpuscular Volume 87 fL N 80-94 Mean Corpuscular Hemoglobin 30 pg N 27-31 Mean Corpuscular HGB Conc 35 g/dL N 31-36 Red Cell Distribution Width 13 % N 10.5-15 Platelet Count 183 10^3/uL N 150-450 Mean Platelet Volume 8 um3 N 7.4-10.4 Abs Neutrophils 2.2 10^3/uL N 1.5-7.7 Abs Lymphocytes 3.1 10^3/uL N 1.0-4.8 Abs Monocytes 0.6 10^3/uL N 0-0.8 Abs Eosinophils 0.1 10^3/uL N 0-0.6 Abs Basophils 0 10^3/uL N 0-0.2 Abs Nucleated RBC 0.01 10^3/uL N Granulocyte % 35.8 % Low 38-83 Lymphocyte % 50.9 % High 25-47 Monocyte % 10.5 % High 1-9 Eosinophil % 2.1 % N 0-6 Basophil % 0.7 % N 0-2 Nucleated Red Blood Cells % 0.1 N Laboratory test finding 02/23/2017 [facility] Amylase 34 U/L N 29-[address] [place] [address] [phone] Lipase 19 U/L N 11.0-82.0 C Reactive Protein 1.73 mg/L N < 5.00 30 Comp Metabolic Panel 02/23/2017 [facility] Sodium 138 mmol/L N 133-[address] [place] [address] [phone] Potassium 3.6 mmol/L N 3.5-5.0 Chloride 104 mmol/L N 101-111 Co2 Carbon Dioxide 27 mmol/L N 22-32 Anion Gap 7 mmol/L N 2-11 Glucose 93 mg/dL N 70-100 Blood Urea Nitrogen 12 mg/dL N 6-24 Creatinine 0.88 mg/dL N 0.67-1.17 BUN/Creatinine Ratio 13.6 N 8-20 Calcium 9.3 mg/dL N 8.6-10.3 Total Protein 7.2 g/dL N 6.4-8.9 Albumin 4.4 g/dL N 3.2-5.2 Globulin 2.8 g/dL N 2-4 Albumin/Globulin Ratio 1.6 N 1-3 Total Bilirubin 0.50 mg/dL N 0.2-1.0 Alkaline Phosphatase 52 U/L N 34-104 Alt 29 U/L N 7-52 Ast 22 U/L N 13-39 Egfr Non- 96.4 N >60 Egfr 124.0 N >60 31 Lipid Profile 01/16/2017 [facility] Triglycerides 288 mg/dL N 32 (Trig/Chol/HDL) [address] [place] [address] [phone] Cholesterol 198 mg/dL N 33 HDL Cholesterol 28.4 mg/dL N 34 LDL Cholesterol 112 mg/dL N 35 Laboratory test 01/16/2017 [facility] Glucose 104 mg/dL High 70-[address] [place] [address] [phone] TSH (Thyroid Stim Horm) 1.42 mcIU/mL N 0.34-5.60 37 Laboratory test 10/26/2015 [facility] C Reactive 4.47 mg/L N < 5.[address] [place] [address] [phone] Angiotensin Converting Enzyme 34 U/L N 8 - 53 39 Celiac Panel 10/26/2015 [facility] Tissue Transglutaminase <1.2 U/mL N [address] [place] [address] [phone] Immunoglobulin A 156 mg/dL N 61 - 356 Celiac Interpretation See Comment N 41 Hla B27 10/26/2015 [facility] Hla B27 Positive N [address] [place] [address] [phone] Hla B27 Interp See Comment N 43 Laboratory test 10/26/2015 [facility] Uric Acid 6.9 mg/dL N 4.4-7.6 [address] [place] [address] [phone] Vitamin D 1,25 10/26/2015 [facility] Vitamin D 15.7 ng/mL Low 30-50 45 And Vitamin D,[address] Total 25(Oh) [place] [address] [phone] Vitamin D, 1,25 Dihydroxy 54 pg/mL N 18-64 46 Laboratory test 10/20/2015 [facility] C Reactive 2.35 mg/L N < 5.00 [address] [place] [address] [phone] Rheumatoid Factor <15 IU/mL N <15 48 Cyclic Citrullinated Pep Igg TNP N 49 Connective Tissue 10/20/2015 [facility] Anti-Nuclear 0.2 U N [address] [place] [address] [phone] Cyclic Citrullinated Peptide <15.6 U N 51 Interpretation See Comment N 52 CBC With 12/18/2009 [facility] White Blood 6.5 CUMM 4.8-10.8 Electronic Diff [address] [place] [address] [phone] Red Cell Count 4.81 CUMM 4.6-6.2 Hemoglobin 15.3 g/dL 14.0-18.0 Hematocrit 44 % 42-52 Mean Corpuscular Volume 91 um3 80-94 Mean Corpuscular Hemoglob 32 pg High 27-31 Mean Corpuscular HGB Cone 35 g/dL 32-36 Redcell Distribution WDTH 13 % 10.5-15 Platelet Count 198 CUMM 150-450 Mean Platelet Volume 7.5 um3 7.4-10.4 Gran % 38.0 % 38-83 Lymph % 49.2 % High 25-47 Mononuclear % 10.7 % High 1-9 Eosinophil % 1.6 % 0-6 Basophil % 0.5 % 0-2 Abs Lymphs 3.2 1.0-4.8 Abs Mononuclear 0.7 0-0.8 Absolute Neutrophil Count 2.5 1.5-7.7 Abs Eosinophils 0.1 0-0.6 Abs Basophils 0 0-0.2 Comp Metabolic Panel 12/18/2009 [facility] Sodium 140 mmol/L 135-145 [address] [place] [address] [phone] Potassium 3.9 mmol/L 3.5-5.0 Chloride 108 mmol/L 101-111 Co2 (Carbon Dioxide) 25.0 mmol/L 22-32 Anion Gap 7.0 mmol/L 2-11 53 Glucose 126 mg/dL High 70-100 54 BUN 12 mg/dL 6-24 Creatinine 0.91 mg/dL 0.50-1.40 One Over Creatinine 1.00 BUN/Creatinine Ratio 13.2 8-20 Calcium 9.1 mg/dL 8.1-9.9 55 Total Protein 6.7 GM/DL 6.2-8.1 Albumin 3.9 GM/DL 3.6-5.4 Globulin 2.8 GM/DL 2-4 Albumin/Globulin Ratio 1.4 1-3 Bilirubin Total 0.4 mg/dL 0.4-1.5 56 Alkaline Phosphatase 93 U/L 39-117 Alt (SGPT) 32 U/L 17-63 Ast (Sgot) 28 U/L 12-42 eGFR Non- 102.6 > 60 eGFR 124.2 > 60 57 Laboratory test 12/18/2009 [facility] Troponin-I (TnI) 0 NG/ML 58 finding [address] [place] [address] [phone] TSH 2.93 MIU/ML 0.34-5.60 Protime 12/12/2009 [facility] Inr 1.02 0.97-1.03 59 [address] [place] [address] [phone] Protime 12.0 SEC 11.5-12.2 60 Laboratory test 12/12/2009 [facility] PTT (Aptt) 40.3 High 25.15-38.53 61 finding [address] [place] [address] [phone] CBC With 12/12/2009 [facility] White Blood 5.9 CUMM 4.8-10.8 Electronic Diff [address] [place] [address] [phone] Red Cell Count 5.24 CUMM 4.6-6.2 Hemoglobin 16.9 g/dL 14.0-18.0 Hematocrit 47 % 42-52 Mean Corpuscular Volume 90 um3 80-94 Mean Corpuscular Hemoglob 32 pg High 27-31 Mean Corpuscular HGB Cone 36 g/dL 32-36 Redcell Distribution WDTH 14 % 10.5-15 Platelet Count 216 CUMM 150-450 Mean Platelet Volume 7.7 um3 7.4-10.4 Gran % 44.5 % 38-83 Lymph % 43.5 % 25-47 Mononuclear % 10.5 % High 1-9 Eosinophil % 0.9 % 0-6 Basophil % 0.6 % 0-2 Abs Lymphs 2.6 1.0-4.8 Abs Mononuclear 0.6 0-0.8 Absolute Neutrophil Count 2.6 1.5-7.7 Abs Eosinophils 0.1 0-0.6 Abs Basophils 0 0-0.2 62 Comp Metabolic Panel 12/12/2009 [facility] Sodium 138 mmol/L 135-[address] [place] [address] [phone] Potassium 3.9 mmol/L 3.5-5.0 Chloride 105 mmol/L 101-111 Co2 (Carbon Dioxide) 27.0 mmol/L 22-32 Anion Gap 6.0 mmol/L 2-11 63 Glucose 135 mg/dL High 70-100 64 BUN 13 mg/dL 6-24 Creatinine 0.78 mg/dL 0.50-1.40 One Over Creatinine 1.20 BUN/Creatinine Ratio 16.7 8-20 Calcium 9.4 mg/dL 8.1-9.9 65 Total Protein 7.7 GM/DL 6.2-8.1 Albumin 4.2 GM/DL 3.6-5.4 Globulin 3.5 GM/DL 2-4 Albumin/Globulin Ratio 1.2 1-3 Bilirubin Total 1.1 mg/dL 0.4-1.5 66 Alkaline Phosphatase 102 U/L 39-117 Alt (SGPT) 31 U/L 17-63 Ast (Sgot) 31 U/L 12-42 eGFR Non- 122.6 > 60 eGFR 148.3 > 60 67 Laboratory test 12/12/2009 [facility] Troponin-I (TnI) 0 NG/ML 68 finding [address] [place] [address] [phone] Urinalysis 09/07/2009 [facility] Ua Color YELLOW Yellow [address] [place] [address] [phone] Appearance-Urine CLEAR Clear Specific [place]-Ur 1.013 1.010-1.030 Esterase-Urine NEGATIVE Negative Nitrite NEGATIVE Negative [id number] NEGATIVE Negative Protein-Urine TRACE Abnormal Negative PH-Urine 8.0 5-9 Blood-Urine NEGATIVE Negative Ketones-Urine NEGATIVE Negative Bilirubin-Ur NEGATIVE Negative Glucose-Urine NEGATIVE Negative Laboratory test 09/07/2009 [facility] Thyroxine 8.0 g/dL 5- 12 finding [address] [place] [address] [phone] T3 Total 1.20 NG/ML 0.5-1.7 Laboratory test 09/07/2009 [facility] TSH 1.37 0.34-5.60 finding [address] MIU/[place] [address] [phone] Lipid Profile 09/07/2009 [facility] Triglyceride 207 mg/dL High 40-200 (Trig/Chol/HDL) [address] [place] [address] [phone] Cholesterol 172 mg/dL Less Than 200 69 High Density Lipoprotein 26 mg/dL Low 40-60 70 Cholesterol/HDL Ratio 6.62 AVERAGE High 1-4.97 Low Density Lipoprotein 105 mg/dL High Less Than 100 71 Lipid Panel - 09/07/2009 [facility] CPK (Creatine 138 U/L 0- 200 [address] [place] Kinase) [place] [address] [phone] Comp Metabolic 09/07/2009 [facility] Sodium 136 135-145 Panel [address] [place] mmol/[place] [address] [phone] Potassium 3.9 mmol/L 3.5-5.0 Chloride 99 mmol/L Low 101-111 Co2 (Carbon Dioxide) 31.0 mmol/L 22-32 Anion Gap 6.0 mmol/L 2-11 72 Glucose 92 mg/dL 70-100 73 BUN 8 mg/dL 6-24 Creatinine 0.80 mg/dL 0.50-1.40 One Over Creatinine 1.20 BUN/Creatinine Ratio 10.0 8-20 Calcium 9.3 mg/dL 8.1-9.9 74 Total Protein 6.4 GM/DL 6.2-8.1 Albumin 4.3 GM/DL 3.6-5.4 Globulin 2.1 GM/DL 2-4 Albumin/Globulin Ratio 2.0 1-3 Bilirubin Total 0.9 mg/dL 0.4-1.5 75 Alkaline Phosphatase 92 U/L 39-117 Alt (SGPT) 40 U/L 17-63 Ast (Sgot) 31 U/L 12-42 eGFR Non- 119.1 > 60 eGFR 144.1 > 60 76 CBC With 09/07/2009 [facility] White Blood 7.0 CUMM 4.8-10.8 Electronic Diff [address] [place] [address] [phone] Red Cell Count 5.05 CUMM 4.6-6.2 Hemoglobin 15.8 g/dL 14.0-18.0 Hematocrit 45 % 42-52 Mean Corpuscular Volume 88 um3 80-94 Mean Corpuscular Hemoglob 31 pg 27-31 Mean Corpuscular HGB Cone 36 g/dL 32-36 Redcell Distribution WDTH 13 % 10.5-15 Platelet Count 229 CUMM 150-450 Mean Platelet Volume 7.2 um3 Low 7.4-10.4 Gran % 48.7 % 38-83 Lymph % 40.0 % 25-47 Mononuclear % 10.0 % High 1-9 Eosinophil % 0.8 % 0-6 Basophil % 0.5 % 0-2 Abs Lymphs 2.8 1.0-4.8 Abs Mononuclear 0.7 0-0.8 Absolute Neutrophil Count 3.4 1.5-7.7 Abs Eosinophils 0.1 0-0.6 Abs Basophils 0 0-0.2 CBC With Manual 09/30/2008 [facility] White Blood 7.7 CUMM 4.8-10.[address] [place] [address] [phone] Red Cell Count 4.90 CUMM 4.6-6.2 Hemoglobin 15.0 g/dL 14.0-18.0 Hematocrit 43 % 42-52 Mean Corpuscular Volume 88 um3 80-94 Mean Corpuscular Hemoglob 31 pg 27-31 Mean Corpuscular HGB Cone 35 g/dL 32-36 Redcell Distribution WDTH 13 % 10.5-15 Platelet Count 192 CUMM 150-450 Mean Platelet Volume 8.5 um3 7.4-10.4 Polysegmented Neutrophil 57 % 38-83 Lymphocyte 29 % 25-47 Monocyte 13 % 0-13 Eosenophil 1 % 0-6 Absolute Neutrophil Count 4.3 RBC Morphology NORMAL Urinalysis W/Microscopic 09/30/2008 [facility] Ua Color YELLOW [address] [place] [address] [phone] Appearance-Urine CLOUDY Specific [place]-Ur 1.023 1.010-1.030 Esterase-Urine NEGATIVE Negative Nitrite NEGATIVE Negative Opcpctryzalt-Ea-XNI NEGATIVE Negative Protein-Urine NEGATIVE Negative PH-Urine 7.0 5-9 Blood-Urine NEGATIVE Negative Ketones-Urine NEGATIVE Negative Bilirubin-Ur NEGATIVE Negative Glucose-Urine NEGATIVE Negative WBC-Urine 0-2 0-5 RBC-Urine NONE SEEN 0-2 Epith Cells-Ur RARE Comp Metabolic Panel 09/30/2008 [facility] Sodium 136 mmol/L 135-145 [address] [place] [address] [phone] Potassium 4.1 mmol/L 3.5-5.0 Chloride 105 mmol/L 101-111 Co2 (Carbon Dioxide) 23.0 mmol/L 22-32 Anion Gap 8.0 mmol/L 2-11 77 Glucose 99 mg/dL 70-100 78 BUN 15 mg/dL 6-24 Creatinine 0.90 mg/dL 0.50-1.40 One Over Creatinine 1.10 BUN/Creatinine Ratio 16.7 8-20 Calcium 9.6 mg/dL 8.1-9.9 79 Total Protein 7.0 GM/DL 6.2-8.1 Albumin 4.2 GM/DL 3.6-5.4 Globulin 2.8 GM/DL 2-4 Albumin/Globulin Ratio 1.5 1-3 Bilirubin Total 1.0 mg/dL 0.4-1.5 Alkaline Phosphatase 89 U/L 39-117 Alt (SGPT) 39 U/L 17-63 Ast (Sgot) 28 U/L 12-42 Laboratory test 09/30/2008 [facility] TSH 1.76 0.34-5.[address] MIU/[place] [address] [phone] Lipid Profile 09/30/2008 [facility] Triglyceride 394 mg/dL High 40-200 (Trig/Chol/HDL) [address] [place] [address] [phone] Cholesterol 197 mg/dL Less Than 200 80 High Density Lipoprotein 25 mg/dL Low 40-60 81 Cholesterol/HDL Ratio 7.88 AVERAGE High 1-4.97 Low Density Lipoprotein 93 mg/dL Less Than 100 82 1 [facility] Severe Sepsis and Septic Shock Management Bundle Measure requires all lactic acids initially measuring >2.0 mmol/L be repeated. 2 Because ethnic data is not always readily available, this report includes an eGFR for both -Americans and non- Americans. The National Kidney Disease Education Program (NKDEP) does not endorse the use of the MDRD equation for patients that are not between the ages of 18 and 70, are , have extremes of body size, muscle mass, or nutritional status, or are non- or non-. According to the National Kidney Foundation, irrespective of diagnosis, the stage of the disease is based on the level of kidney function: Stage Description GFR(mL/min/1.73 m(2)) 1 Kidney damage with normal or decreased GFR 90 2 Kidney damage with mild decrease in GFR 60-89 3 Moderate decrease in GFR 30-59 4 Severe decrease in GFR 15-29 5 Kidney failure <15 (or dialysis) 3 Troponin-I testing on Plasma Separator Tubes (PST) has a known false positive rate of 0.20-0.40%. All positive troponins reflex immediate secondary confirmatory testing. 4 Troponin-I testing on Plasma Separator Tubes (PST) has a known false positive rate of 0.20-0.40%. All positive troponins reflex immediate secondary confirmatory testing. 5 Troponin-I testing on Plasma Separator Tubes (PST) has a known false positive rate of 0.20-0.40%. All positive troponins reflex immediate secondary confirmatory testing. 6 Troponin-I testing on Plasma Separator Tubes (PST) has a known false positive rate of 0.20-0.40%. All positive troponins reflex immediate secondary confirmatory testing. 7 Clinical Psychology Professor: [id number] SEE RESULT BELOW Name: HARRY BELTRAN : [address]: Alan Whitlock MD Acct: [id number] Unit: [id number] AGE: 43 Location: ED Re07/18/18 SEX: M Status: REG ER SPEC: [id number] MICHAEL: 07/18/[address]: Lainey JERONIMO REQ: [id number] RECD: 07/18/18 STATUS: TOO GARRETT DR: Alan Holland PARTS COUNTER ASSOCIATE _ SOURCE: NASAL SPDESC: ORDERED: Flu A B Request Procedure Result Reported Site Rapid Influenza A B Request Final 07/18/18- 0944 ML Specimen received for Influenza A/B Molecular testing * ML - Main Lab . END OF REPORT DEPARTMENT OF PATHOLOGY, [address] [place] [address] Enrike Roa M.D. Director [facility] # [id number] 9 Please note: The following may produce a false positive D Dimer test: - Rheumatoid factor greater than 60 IU/ml - Plasma hemoglobin greater than 0.05 gm/dl - Bilirubin greater than 50 mg/dl - Lipids greater than 1000 mg/dl - FDP greater than 20 ug/ml 10 Because ethnic data is not always readily available, this report includes an eGFR for both -Americans and non- Americans. The National Kidney Disease Education Program (NKDEP) does not endorse the use of the MDRD equation for patients that are not between the ages of 18 and 70, are , have extremes of body size, muscle mass, or nutritional status, or are non- or non-. According to the National Kidney Foundation, irrespective of diagnosis, the stage of the disease is based on the level of kidney function: Stage Description GFR(mL/min/1.73 m(2)) 1 Kidney damage with normal or decreased GFR 90 2 Kidney damage with mild decrease in GFR 60-89 3 Moderate decrease in GFR 30-59 4 Severe decrease in GFR 15-29 5 Kidney failure <15 (or dialysis) 11 [facility] Severe Sepsis and Septic Shock Management Bundle Measure requires all lactic acids initially measuring >2.0 mmol/L be repeated. 12 Because ethnic data is not always readily available, this report includes an eGFR for both -Americans and non- Americans. The National Kidney Disease Education Program (NKDEP) does not endorse the use of the MDRD equation for patients that are not between the ages of 18 and 70, are , have extremes of body size, muscle mass, or nutritional status, or are non- or non-. According to the National Kidney Foundation, irrespective of diagnosis, the stage of the disease is based on the level of kidney function: Stage Description GFR(mL/min/1.73 m(2)) 1 Kidney damage with normal or decreased GFR 90 2 Kidney damage with mild decrease in GFR 60-89 3 Moderate decrease in GFR 30-59 4 Severe decrease in GFR 15-29 5 Kidney failure <15 (or dialysis) 13 Normal Range 180 to 914 Indeterminate Range 145 to 180 Deficient Range <145 14 Therapeutic target for the treatment of diabetes mellitus patients is <7% HBA1C, and in selective patients <6.0%. Please refer to [place] [employer] diabetic care guidelines for further information. 15 Serologic response to B. burgdorferi infection is not detected, but cannot rule out early infection during which low or undetectable antibody levels to B. burgdorferi may be present. If clinically indicated, a new serum specimen should be submitted in 7-14 days. Test Performed by: [facility] [address] [place] [address] 16 Normal Range 180 to 914 Indeterminate Range 145 to 180 Deficient Range <145 17 Therapeutic target for the treatment of diabetes mellitus patients is <7% HBA1C, and in selective patients <6.0%. Please refer to [place] [employer] diabetic care guidelines for further information. 18 The urine specimen was tested at the listed cutoffs: Drug class test level (ng/mL) Amphetamines 500 Barbiturates 200 Benzodiazepine metabolites 200 Cocaine metabolites 150 Cannabinoids 50 Opiates 300 Pcp 25 Specimen was received without chain of custody. Results should be used for medical purposes only. 19 Specimen Lipemic. Result may not be valid. 20 Because ethnic data is not always readily available, this report includes an eGFR for both -Americans and non- Americans. The National Kidney Disease Education Program (NKDEP) does not endorse the use of the MDRD equation for patients that are not between the ages of 18 and 70, are , have extremes of body size, muscle mass, or nutritional status, or are non- or non-. According to the National Kidney Foundation, irrespective of diagnosis, the stage of the disease is based on the level of kidney function: Stage Description GFR(mL/min/1.73 m(2)) 1 Kidney damage with normal or decreased GFR 90 2 Kidney damage with mild decrease in GFR 60-89 3 Moderate decrease in GFR 30-59 4 Severe decrease in GFR 15-29 5 Kidney failure <15 (or dialysis) 21 Specimen hemolyzed. Patient discharged, unable to recollect sample. 22 Specimen hemolyzed. Patient discharged, unable to recollect sample. 23 Clinical Psychology Professor: [id number] Clinical Psychology Professor: [id number] 25 No interferon-gamma response to M. tuberculosis antigens was detected. Infection with M. tuberculosis is unlikely. A negative result alone does not exclude infection with M. tuberculosis. For detailed information regarding test interpretation see: www.[facility]/test-catalog/ Clinical+and+[email or web address]/43486 26 Test Performed by: [facility] [address] [place] [id number] 27 SEE RESULT BELOW Name: HARRY BELTRAN : [address]: Vinh Posey MD Acct: [id number] Unit: [id number] AGE: 41 Location: OR Re03/06/17 SEX: M Status: [facility] SPEC: [id number] MICHAEL: 03/06/17- [facility] DR: Vinh Posey MD REQ: [id number] RECD: 03/06/17 STATUS: SOUT _ ORDERED: LEVEL 3 FINAL DIAGNOSIS Gallbladder, cholecystectomy: -- Chronic cholecystitis. -- Cholelithiasis. PRE-OPERATIVE DIAGNOSIS Calculus of gallbladder with chronic cholecystitis GROSS DESCRIPTION The specimen is received in formalin labeled, Gallbladder, and consists of an 8.7 x 2.9 x 2.3 cm intact gallbladder. The serosa is glistening smooth to shaggy carter- chouhdury with a small amount of adherent yellow fat. Within the lumen there is a 1.6 x 1.3 x 1.1 cm green ovoid granular cholelith admixed with abundant green viscid bile. The mucosa is reticulated to granular green with a small amount of focal yellow stippling and the wall thickness measures up to 0.2 cm. Precast Worker sections, one cassette. Signed (signature on file) Mini Jensen MD 07/24 1120 END OF REPORT * ML=Testing performed at Main Lab DEPARTMENT OF PATHOLOGY, [address] [place] [address] Enrike Roa M.D. Director [facility] # [id number] 28 SEE RESULT BELOW Name: HARRY BELTRAN : [address]: Sam Menendez DO Acct: [id number] Unit: [id number] AGE: 41 Location: ED Re02/23/17 SEX: M Status: DEP ER SPEC: [id number] MICHAEL: 02/23/[address]: Sam Menendez DO REQ: [id number] RECD: 02/23/17 STATUS: TOO GARRETT DR: David [place] PARTS COUNTER ASSOCIATE _ SOURCE: URINE SPDESC: ORDERED: Urine Culture Procedure Result Reported Site Urine Culture Final 02/24/17- 1607 ML No Growth (<1,000 CFU/mL) * ML - MAIN LAB ([facility]) . END OF REPORT * ML=Testing performed at Main Lab DEPARTMENT OF PATHOLOGY, [address] [place] [address] Enrike Roa M.D. Director [facility] # [id number] 29 [facility] Severe Sepsis and Septic Shock Management Bundle Measure requires all lactic acids initially measuring >2.0 mmol/L be repeated. 30 Acute inflammation: >10.00 31 Because ethnic data is not always readily available, this report includes an eGFR for both -Americans and non- Americans. The National Kidney Disease Education Program (NKDEP) does not endorse the use of the MDRD equation for patients that are not between the ages of 18 and 70, are , have extremes of body size, muscle mass, or nutritional status, or are non- or non-. According to the National Kidney Foundation, irrespective of diagnosis, the stage of the disease is based on the level of kidney function: Stage Description GFR(mL/min/1.73 m(2)) 1 Kidney damage with normal or decreased GFR 90 2 Kidney damage with mild decrease in GFR 60-89 3 Moderate decrease in GFR 30-59 4 Severe decrease in GFR 15-29 5 Kidney failure <15 (or dialysis) 32 Desirable <150 Borderline high 150-199 High 200-499 Very High >500 33 Desirable <200 Borderline high 200-239 High >239 34 Low <40 Desirable: 40-60 High: >60 35 Desirable: <100 mg/dL Near Optimal: 100-129 mg/dL Borderline High: 130-159 mg/dL High: 160-189 mg/dL Very High: >189 mg/dL 36 FASTING 10 HOUR 37 FASTING 10 HOUR 38 Acute inflammation: >10.00 39 The sample is slightly hemolyzed. This may reduce SHARON values by as much as 10%. Test Performed by: [address] [address] Sliver Lap Tender: Robin Tirado II, M.D., Ph.D. 40 REFERENCE VALUE <4.0 (Negative) Test Performed by: [place] [address] Sliver Lap Tender: Robin Tirado II, M.D., Ph.D. 41 Negative serology. Celiac disease unlikely. However, approximately 10% of patients with celiac disease are seronegative. Also, patients who are already adhering to a gluten-free diet may be seronegative. If celiac disease is highly clinically suspected, consider HLA-DQ typing. Test Performed by: [place] [address] Sliver Lap Tender: Robin Tirado II, M.D., Ph.D. 42 REFERENCE VALUE Not Applicable 43 HLA-B27 antigen was detected. Approximately 8% of the normal population carries the HLA-B27 antigen. HLA-B27 is present in approximately 89% of patients with ankylosing spondylitis, 79% of patients with Robert's syndrome and 42% of patients with juvenile rheumatoid arthritis. However, lacking other data, it is not diagnostic for these disorders. This test does not differentiate B27 alleles. i.e. B*27:05, B*27:06, etc. ADDITIONAL INFORMATION Method: Flow Cytometry Performing Laboratory CLIA# [id number] Test Performed by: [place] [address] Sliver Lap Tender: Robin Tirado II, M.D., Ph.D. 44 this week please 45 this week please 46 Test Performed by: [place] [address] Sliver Lap Tender: Robin Tirado II, M.D., Ph.D. 47 Acute inflammation: >10.00 48 Test Performed by: [place] [address] Sliver Lap Tender: Robin Tirado II, M.D., Ph.D. 49 Cancelled due to duplicate test on this order Test Performed by: [facility] - [address] [address] Sliver Lap Tender: Robin Tirado II, M.D., Ph.D. 50 REFERENCE VALUE <=1.0 (Negative) 51 REFERENCE VALUE <20.0 (Negative) 52 Tests for antibodies to dsDNA and ROMY antigens are not performed automatically unless the CATARINO result is > or= 3.0 U. Studies performed at [facility] indicate that positive CATARINO results <3.0 U are rarely accompanied by positive second order tests. Test Performed by: [place] [address] Sliver Lap Tender: Robin Tirado II, M.D., Ph.D. 53 Anion gap measurement may be of limited value in the presence of any alkalosis, especially in a combined acid base disorder. . 54 Note change in reference range as of 02/26/08. The change was based on recommendations from the [place] [employer]. 55 Please note change in reference range effective 07 . 56 A metabolite of Naproxen, O-desmethylnaproxen, has been shown to interfere with the Jendrassik-Nura method for measuring total bilirubin. Samples from patients who have taken Naproxen have shown spurious elevation in total bilirubin levels. 57 Because ethnic data is not always readily available, this report includes an eGFR for both -Americans and non- Americans. The National Kidney Disease Education Program (NKDEP) does not endorse the use of the MDRD equation for patients that are not between the ages of 18 and 70, are , have extremes of body size, muscle mass, or nutritional status, or are non- or non-. According to the National Kidney Foundation, irrespective of diagnosis, the stage of the disease is based on the level of kidney function: Stage Description GFR(mL/min/1.73 m(2)) 1 Kidney damage with normal or decreased GFR 90 2 Kidney damage with mild decrease in GFR 60-89 3 Moderate decrease in GFR 30-59 4 Severe decrease in GFR 15-29 5 Kidney failure <15 (or dialysis) 58 New Reference Range and Interpretation effective 04/10/2002 TnI (ng/ml) INTERPRETATION Less Than 0.06 ng/mL NOT SUPPORTIVE OF DIAGNOSIS OF [place] 0.06 - 0.50 ng/ml INDETERMINATE: SUGGEST SERIAL STUDIES IF CLINICALLY INDICATED. Greater than 0.5 ng/mL CONSISTENT WITH DIAGNOSIS OF [place] . 59 Recommended INR for Patients on Oral Anticoagulants Prophylaxis 2.0 - 3.0 Treatment of thrombosis 2.0 - 3.0 Prevention of embolism 2.0 - 3.0 Prevention of embolism from prosthetic heart valves 2.5 - 3.5 60 DIAGNOSIS,TREATMENT,AND THERAPY MUST BE BASED ON THE INR VALUE ALONE. 61 PLEASE NOTE NEW REFERENCE RANGE EFFECTIVE 09. 62 H H Check Failed 63 Anion gap measurement may be of limited value in the presence of any alkalosis, especially in a combined acid base disorder. . 64 Note change in reference range as of 02/26/08. The change was based on recommendations from the [place] [employer]. 65 Please note change in reference range effective 07 . 66 A metabolite of Naproxen, O-desmethylnaproxen, has been shown to interfere with the Jendrassik-Marcelline method for measuring total bilirubin. Samples from patients who have taken Naproxen have shown spurious elevation in total bilirubin levels. 67 Because ethnic data is not always readily available, this report includes an eGFR for both -Americans and non- Americans. The National Kidney Disease Education Program (NKDEP) does not endorse the use of the MDRD equation for patients that are not between the ages of 18 and 70, are , have extremes of body size, muscle mass, or nutritional status, or are non- or non-. According to the National Kidney Foundation, irrespective of diagnosis, the stage of the disease is based on the level of kidney function: Stage Description GFR(mL/min/1.73 m(2)) 1 Kidney damage with normal or decreased GFR 90 2 Kidney damage with mild decrease in GFR 60-89 3 Moderate decrease in GFR 30-59 4 Severe decrease in GFR 15-29 5 Kidney failure <15 (or dialysis) 68 New Reference Range and Interpretation effective 04/10/2002 TnI (ng/ml) INTERPRETATION Less Than 0.06 ng/mL NOT SUPPORTIVE OF DIAGNOSIS OF [place] 0.06 - 0.50 ng/ml INDETERMINATE: SUGGEST SERIAL STUDIES IF CLINICALLY INDICATED. Greater than 0.5 ng/mL CONSISTENT WITH DIAGNOSIS OF [place] . 69 CHOLESTEROL INTERPRETATION: Desirable: Less than 200 MG/DL Borderline-High Risk: 200-239 MG/DL High-Risk: 240 MG/DL and over 70 HDL INTERPRETATION: Undesirable: High Risk: Less than 40 MG/DL Desirable: Low Risk: Greater than 60 MG/DL 71 LDL INTERPRETATION: Low Risk Optimal Level: LDL Less than 100 MG/DL Near or Above Optimal: LDL 100-129 MG/DL Borderline High Risk: LDL 130-159 MG/DL High Risk: LDL 160-189 MG/DL Very High Risk: LDL Greater than 189 MG/DL 72 Anion gap measurement may be of limited value in the presence of any alkalosis, especially in a combined acid base disorder. . 73 Note change in reference range as of 02/26/08. The change was based on recommendations from the [place] [employer]. 74 Please note change in reference range effective 07 . 75 A metabolite of Naproxen, O-desmethylnaproxen, has been shown to interfere with the Jendrassik-Nura method for measuring total bilirubin. Samples from patients who have taken Naproxen have shown spurious elevation in total bilirubin levels. 76 Because ethnic data is not always readily available, this report includes an eGFR for both -Americans and non- Americans. The National Kidney Disease Education Program (NKDEP) does not endorse the use of the MDRD equation for patients that are not between the ages of 18 and 70, are , have extremes of body size, muscle mass, or nutritional status, or are non- or non-. According to the National Kidney Foundation, irrespective of diagnosis, the stage of the disease is based on the level of kidney function: Stage Description GFR(mL/min/1.73 m(2)) 1 Kidney damage with normal or decreased GFR 90 2 Kidney damage with mild decrease in GFR 60-89 3 Moderate decrease in GFR 30-59 4 Severe decrease in GFR 15-29 5 Kidney failure <15 (or dialysis) 77 Anion gap measurement may be of limited value in the presence of any alkalosis, especially in a combined acid base disorder. . 78 Note change in reference range as of 02/26/08. The change was based on recommendations from the [place] [employer]. 79 Please note change in reference range effective 07 . 80 CHOLESTEROL INTERPRETATION: Desirable: Less than 200 MG/DL Borderline-High Risk: 200-239 MG/DL High-Risk: 240 MG/DL and over 81 HDL INTERPRETATION: Undesirable: High Risk: Less than 40 MG/DL Desirable: Low Risk: Greater than 60 MG/DL 82 LDL INTERPRETATION: Low Risk Optimal Level: LDL Less than 100 MG/DL Near or Above Optimal: LDL 100-129 MG/DL Borderline High Risk: LDL 130-159 MG/DL High Risk: LDL 160-189 MG/DL Very High Risk: LDL Greater than 189 MG/DL Procedures Date Code Description Status 10/01/2018 13197 EKG Tracing & Interpretation Completed 09/09/2018 63709 ECHO Transthorasic Realtime 2D W Doppler & Color Flow Hosp Completed 09/09/2018 82521 Treadmill Interp/Report Only Completed 09/09/2018 26786 Stress Test Supervsn W/Out I/R Completed 03/19/2018 55895 Inject Tendon Sheath Or Ligament Aponeurosis Eg Plantar Completed Fascia 08/29/2017 54421 Inject Tendon Sheath Or Ligament Aponeurosis Eg Plantar Completed Fascia 04/30/2017 43108 Holter Monitor Review (24 hr)dr review & interp only Completed 04/24/2017 19192 ECG Monitor/Recording W/Visual Superimposition Scanning Completed 04/24/2017 40333 EKG Tracing & Interpretation Completed 03/06/2017 20133 Laparoscopy Cholecystectomy Completed 03/06/2017 48031 Laparoscopy Cholecystectomy Completed 02/26/2012 61905 Spinal Puncture, Lumbar Diagnostic Completed 10/20/2009 93327 ECHO Stress Test Incl Perf Contiuous ekg Monitoring W/Phys Completed Superv 08/25/2009 89401 EKG Tracing & Interpretation Completed 08/23/2009 45945 Holter Monitor Completed 08/11/2009 64412 EKG Tracing & Interpretation Completed Encounters Type Date Location Provider Dx Diagnosis Office Visit 12/24/2018 Infrastructure Architect Internal Davidmary Holland NP R50.9 Fever, unspecified 1:40p Medicine - [facility] R53.81 Other malaise R05 Cough J45.20 Mild intermittent asthma, uncomplicated J06.9 Acute upper respiratory infection, unspecified Office Visit 10/01/2018 9:45a [facility] Jon Wharton R00.2 Palpitations Of Srinivasa Hernandez M.D., [facility], [facility] Office Visit 09/12/2018 4:00p [facility] Internal David Skyler, I10 Essential Medicine - [facility] PARTS COUNTER ASSOCIATE (primary) hypertension Office Visit 09/09/2018 9:19a [facility] Zulema R00.2 Palpitations Assoc,pc Waqar, Hospitalists PA I49.3 Ventricular premature depolarization I10 Essential (primary) hypertension Office Visit 09/08/2018 9:16a [facility] Carlyn Luu, R00.2 Palpitations Assoc, Hospitalists N.P. I10 Essential (primary) hypertension Office Visit 08/08/2018 2:20p [facility] Internal David Skyler, I10 Essential ( primary) Medicine - [facility] PARTS COUNTER ASSOCIATE hypertension Office Visit 07/21/2018 10:00a [facility] Internal David Skyler, I10 Essential ( primary) Medicine - [facility] PARTS COUNTER ASSOCIATE hypertension R00.1 Bradycardia, unspecified Office Visit 06/13/2018 9:00a [facility] Internal David Skyler, Z30.2 Encounter for Medicine - [facility] PARTS COUNTER ASSOCIATE sterilization Office Visit 05/16/2018 9:20a [facility] Internal David Skyler, R25.2 Cramp and spasm Medicine - [facility] PARTS COUNTER ASSOCIATE Office Visit 03/19/2018 2:15p Elio Jason5.4 Radial styloid Services Of Bitting, tenosynovitis [[place]] Office Visit 03/13/2018 10:20a [facility] Internal David Skyler, M54.5 Low back pain Medicine - [facility] PARTS COUNTER ASSOCIATE Office Visit 11/04/2017 8:40a [facility] Internal David Skyler, R07.9 Chest pain, Medicine - [facility] PARTS COUNTER ASSOCIATE unspecified R51 Headache R06.83 Snoring Office Visit 09/19/2017 4:00p [facility] Internal David Skyler, PARTS COUNTER ASSOCIATE R00.2 Palpitations Medicine - [facility] R07.9 Chest pain, unspecified R53.83 Other fatigue R73.01 Impaired fasting glucose F41.9 Anxiety disorder, unspecified Office Visit 08/29/2017 Orthopedic Patti M65.4 Radial styloid 3:15p Services Of STACY Espinosa tenosynovitis [[place]] Office Visit 08/26/2017 [facility] Internal David Holland NP M79.641 Pain in right hand 10:00a Medicine - [facility] Office Visit 08/15/2017 [facility] Internal Latia B34.9 Viral infection, 9:40a Medicine - Suite ROSSY Barrera unspecified R Office Visit 07/30/2017 DoNotUse [facility] Jeremiah Seth M54.5 Low back pain 1:00p Internal Carlo Hutchinson Medicine-Arrowwo od Office Visit 06/21/2017 [facility] Internal Sha Burris, J02.9 Acute pharyngitis, 1:00p Medicine - Suite RESEARCH/PROGRAM DIRECTOR unspecified R Office Visit 04/24/2017 [facility] Internal David Holland NP R00.2 Palpitations 1:20p Medicine - [facility] I10 Essential (primary) hypertension R07.9 Chest pain, unspecified Office Visit 04/08/2017 11:30a [facility] Dermatology Vivek Childress, L23.9 Allergic contact dermatitis, unspecified cause Office Visit 03/29/2017 4:20p [facility] Internal David Holland NP R06.02 Shortness of Medicine - [facility] breath R21 Rash and other nonspecific skin eruption R25.3 Fasciculation Office Visit 02/28/2017 10:00a Surgical Vinh Casas K80.10 [facility] MD Kalpesh, gallbladder w FACS chronic cholecyst w/o obstruction Office Visit 02/07/2017 2:40p [facility] Internal David Holland, R10.11 Right upper Medicine - [place] PARTS COUNTER ASSOCIATE quadrant pain Office Visit 12/26/2016 8:40a [facility] Internal David Holland, R07.89 Other [facility] R06.02 Shortness of breath J30.9 Allergic rhinitis, unspecified Z13.220 Encounter for screening for lipoid disorders Z13.1 Encounter for screening for diabetes mellitus R53.83 Other fatigue Office Visit 12/09/2015 8:45a Pulmonology And Ilana G47.9 Sleep disorder, Sleep Services Of MD Mona unspecified [facility] E66.09 Other obesity due to excess calories Office Visit 10/26/2015 Rheumatology Otilio L40.50 Arthropathic 1:00p Services Of Srinivasa Ribeiro M.D. psoriasis, unspecified M06.4 Inflammatory polyarthropathy R06.83 Snoring M25.572 Pain in left ankle and joints of left foot M25.571 Pain in right ankle and joints of right foot M79.644 Pain in right finger(s) M79.645 Pain in left finger(s) F17.210 Nicotine dependence, cigarettes, uncomplicated Office Visit 10/20/2015 3:20p [facility] Emi Hassan M25.572 Pain in left Infectious Carlo Rogers ankle and Diseases joints of left foot M25.571 Pain in right ankle and joints of right foot M79.644 Pain in right finger(s) M79.645 Pain in left finger(s) Office Visit 12/21/2014 3:20p Neurosurgery Services Mayur Jamison, 724.2 Lumbago Of Srinivasa Matos 721.3 Spondylosis Lumbar W/O Myelopathy Office Visit 02/25/2014 Neurosurgery Mayur Duvall 724.2 Lumbago 9:00a Services Of Srinivasa Jamison M.D. Office Visit 02/16/2014 [facility] 401.9 Hypertension 12:22p Assoc,pc Marky N.PSevero Unspec Hospitalists 724.5 Backache Unspec 305.1 Tobacco Use Disorder Office Visit 01/04/2010 2:40p DO Not Use Srinivasa Seth 786.50 Pain Chest AT [place] Hutchinson M.D. Unspec Office Visit 09/21/2009 9:40a DO Not Use Briseida Patel.1 Tobacco Use AT [place] Perkins M.D. Disorder 300.01 Panic Disorder W/O Agoraphobia 493.00 Asthma Extrinsic Unspecified 300.00 Anxiety State Unspec Office Visit 08/25/2009 4:00p DO Not Use Briseida Patel.1 Tobacco Use AT [place] Perkins M.D. Disorder 427.89 Cardiac Dysrhythmia Other 307.42 Sleep Disorder Persistent Initiating Or Maintaining Sleep 786.50 Pain Chest Unspec 530.81 Esophageal Reflux Office Visit 08/25/2009 1:40p [facility] Qutaybeh SSevero 305.1 Tobacco Use Carlo Grant Disorder 427.89 Cardiac Dysrhythmia Other 307.42 Sleep Disorder Persistent Initiating Or Maintaining Sleep 785.0 Tachycardia Unspec 427.69 Premature Beats Other 427.61 Premature Beats Supraventricular 786.50 Pain Chest Unspec 786.05 Shortness Of Breath Office Visit 08/11/2009 11:00a DO Not Use Infrastructure Architect Joe 305.1 Tobacco Use AT Clifton Perkins M.D. Disorder 530.81 Esophageal Reflux V70.0 Examination General Medical Routine AT [facility] Care [facility] 427.89 Cardiac Dysrhythmia Other 706.1 Acne Other 307.42 Sleep Disorder Persistent Initiating Or Maintaining Sleep 300.01 Panic Disorder W/O Agoraphobia Office Visit 10/01/2008 9:00a DO Not Use Infrastructure Architect Paula Rene PA 466.0 Bronchitis Acute AT [facility] 305.1 Tobacco Use Disorder 530.81 Esophageal Reflux Office Visit 09/23/2008 2:20p DO Not Use Infrastructure Architect Scarlett, V70.0 Examination [place] General Medical Routine AT Health Care Facility V17.3 History Family Ischemic Heart Disease Plan of Treatment 01/29/2019 - Mary Steinberg, MDR25.2 Cramp and spasmNew Medication:Cyclobenzaprine HCL 10 mg - 1 by mouth at nightNew Orders:EMG w/Nerve Conduct Study, Upper, Ordered: 01/29/19
[2019-02-02 11:23] VITALS: BP 126/72
--- NOTE | 2019-02-02 11:45 | UC ---
Shoulder Pain HPI - HPI Summary HPI Summary: 43 yo male lifting at work today felt like right shoulder popped out then popped back in unable to abduct very much some mild distal numbness he is right handed ' occurred this AM - History of Current Complaint Chief Complaint: UCUpperExtremity Stated Complaint: RT SHOULDER INJ Time Seen by Provider: 02/02/19 11:44 Hx Obtained From: Patient Onset/Duration: Sudden Onset Timing: Constant Severity Initially: Severe Severity Currently: Moderate Pain Intensity: 6 Pain Scale Used: 0-10 Numeric Character: Aching, Throbbing, Spasmodic Aggravating Factor(s): Movement Alleviating Factor(s): Rest, Ice Associated Signs And Symptoms: Positive: Negative - Allergies/Home Medications Allergies/Adverse Reactions: Allergies Allergy/AdvReac Type Severity Reaction Status Date / Time bee venom protein (honey bee) Allergy Severe Anaphylatic Verified 02/02/19 11:23 Shock shellfish derived Allergy Severe GI Upset Verified 02/02/19 11:23 Home Medications: Home Medications Atenolol TAB* [Tenormin TAB* 25 MG] 25 mg PO DAILY 02/02/19 [History Confirmed 02/02/19] PMH/Surg Hx/FS Hx/Imm Hx Previously Healthy: Yes Cardiovascular History: Hypertension Other History Of: Negative For: Anticoagulant Therapy - Surgical History Surgical History: Yes Surgery Procedure, Year, and Place: October 2010 - Kidney stone removed. tonsillectomy as a child. 2000 - repaired laceration to right hand. had spinal tap to r/o meningitis - had to have blood patch next day - Family History Known Family History: Positive: Cardiac Disease - MOM AND DAD BOTH HAD 3V CABG IN THEIR 50s, Hypertension, Diabetes - brother, recent, Other - cancer - Social History Alcohol Use: Weekly Alcohol Amount: few beers every weekend Substance Use Type: Marijuana Substance Use Comment - Amount & Last Used: states socially-denies any other drug use Smoking Status (MU): Former Smoker Type: Cigarettes Amount Used/How Often: More than 1.5 pack per day Length of Time of Smoking/Using Tobacco: 27 years old Have You Smoked in the Last Year: No When Did the Patient Quit Smoking/Using Tobacco: 04/06/16 Household Exposure Type: Cigarettes - Immunization History Most Recent Influenza Vaccination: never gets Most Recent Tetanus Shot: UTD Review of Systems All Other Systems Reviewed And Are Negative: Yes Constitutional: Positive: Negative Skin: Positive: Negative Eyes: Positive: Negative ENT: Positive: Negative Respiratory: Positive: Negative Cardiovascular: Positive: Negative Gastrointestinal: Positive: Negative Genitourinary: Positive: Negative Motor: Positive: Negative Neurovascular: Positive: Negative Musculoskeletal: Positive: Arthralgia - Right shoulder, Decreased ROM - right - shoulder Neurological: Positive: Negative Psychological: Positive: Negative Physical Exam Triage Information Reviewed: Yes Appearance: Well-Appearing, No Pain Distress, Well-Nourished Vital Signs: Initial Vital Signs Temp 98.2 F 02/02/19 11:16 Pulse 50 02/02/19 11:16 Resp 18 02/02/19 11:16 BP 126/72 02/02/19 11:16 Pulse Ox 99 02/02/19 11:16 Vital Signs Reviewed: Yes Eyes: Positive: Conjunctiva Clear ENT: Positive: Hearing grossly normal. Negative: Nasal congestion, Nasal drainage, Trismus, Muffled voice, Hoarse voice Dental Exam: Normal Neck: Positive: Supple Respiratory: Positive: Lungs clear, Normal breath sounds, No respiratory distress, No accessory muscle use Cardiovascular: Positive: RRR, No Murmur Musculoskeletal: Positive: ROM Limited @ - right shoulder unable to abduct >30 degrees Neurological: Positive: Alert Psychological Exam: Normal Skin Exam: Normal Diagnostics - Radiology No standard instances Radiology Interpretation Completed By: Radiologist Summary of Radiographic Findings: no fx Shoulder Course/Dx - Differential Dx/Diagnosis Provider Diagnosis: Right shoulder injury Discharge - Sign-Out/Discharge Documenting (check all that apply): Patient Departure All imaging exams completed and their final reports reviewed: Yes - Discharge Plan Condition: Stable Disposition: HOME Prescriptions: Naproxen [Naproxen 500 mg tab] 500 mg PO BID PRN #20 tablet PRN Reason: Pain Patient Education Materials: How to Use a Sling (ED), Shoulder Pain (ED) Forms: *Work Release Referrals: Jamin Menezes MD [Medical Doctor] - As Soon As Possible Additional Instructions: I suspect you have torn your rotator cuff or labrum - Billing Disposition and Condition Condition: STABLE Disposition: Home
[2019-02-02] MEDS ORDERED: Naproxen TAB* 250 MG PO ONE (11:50)
== END 2019-02-02 12:45 | disposition home or self-care (01) ==
LOC: UCEAST 10:53
DX: S49.91XA Unspecified injury of right shoulder and upper arm, initial encounter (principal); X50.0XXA Overexertion from strenuous movement or load, initial encounter; Y93.9 Activity, unspecified; Y92.89 Other specified places as the place of occurrence of the external cause; Y99.0 Civilian activity done for income or pay; I10 Essential (primary) hypertension; Z87.891 Personal history of nicotine dependence
CPT/HCPCS: 99213; A9270-GY; G0463

== ENCOUNTER 2019-04-07 08:14 | Emergency (ER) | payer OTHER ==
[2019-04-07] MEDS ORDERED: NS 0.9% 1000 ML** 1,000 ML IV ONE (08:37)
[2019-04-07] MEDS ORDERED: Metoclopramide IV* 5 MG/ML 2 ML VIAL IV ONE (08:37)
[2019-04-07] MEDS ORDERED: Ketorolac INJ* 30 MG/ML 1 ML VIAL IV ONE (08:37)
[2019-04-07] MEDS ORDERED: diPHENhydraMINE IV* 50 MG/ML 1 ml VIAL (BENADRYL) IV ONE (08:37)
--- OUTSIDE RECORDS SUMMARY | 2019-04-07 08:40 | XMS REPORT | Continuity of Care Document ---
:1975 External Reference #:[id number] Author Name Elton Allen MD (transmitted by agent of provider Eli Basilio) Address [address] [facility], [place] [address] Care Team Providers Name Role Phone Mary Steinberg MD - Internal Medicine Care Team Information Carrier Associate Problems Active Problems Provider Date Lumbosacral spondylosis without Mayur Jamison M.D. Onset: 12/21/2014 myelopathy Disturbance in sleep behavior Ilana Dunn MD Onset: 12/09/2015 Obesity Ilana Dunn MD Onset: 12/09/2015 Asthma David Holland NP Onset: 01/01/2017 Palpitations Jon Hernandez M.D., [facility], Onset: 10/01/2018 FASNC Shoulder joint unstable Elton Allen MD Onset: 02/17/2019 Strain of rotator cuff capsule Elton Allen MD Onset: 02/17/2019 Social History Type Date Description Comments Sex Unknown Tobacco Use Start: Unknown Quit 2 weeks ago as of Smoked for 25 yrs 12/09/15 ETOH Use Currently consumes 6 drinks/week alcohol Recreational Drug Use Current Drug User Marijuana Tobacco Use Start: Unknown End: Patient is a former Unknown smoker Recreational Drug Use Former Drug User Cocaine Smoking Status Reviewed: 03/31/19 Patient is a former smoker Exercise Type/Frequency [...] Inflate weekly at home Misc Fluticasone Propionate [place] 2 Sprays 16units R51 David Holland NP 2017 Into Each 50mcg/Act Suspension Nostril One Time Daily as Needed Ventolin HFA 2 puffs by mouth 1units [...] 1 by mouth every Unknown Tablets day Naproxen 1 tablet with Unknown 500mg Tablets food by mouth twice a day History Medications Benzonatate take one or two 30caps J06.9 David Holland NP 12/24/2018 - 100mg capsules every 8 12/31/2018 Capsules hours as needed for cough. Azithromycin 2 tabs by mouth 6tabs J45.20 David Holland NP 12/24/2018 - 250mg every day x1 day, 12/30/2018 Tablets 1 tab by mouth every day x 4 days Medications Administered in Office Medication SIG Qnty Indications Ordering Provider Date Depomedrol 40MG STACY Pastrana 03/19/2018 Injection Depomedrol 40MG STACY Pastrana 08/29/2017 Injection Immunizations Description No Information Available Vital Signs Date Vital Result Comment 03/31/2019 8:23am Height 72 inches 6'0" Weight 224.00 lb Heart Rate 60 /min BP Systolic 140 mmHg BP Diastolic 88 mmHg Body Temperature 96.4 F Pain Level 5 BMI (Body Mass Index) 30.4 kg/m2 02/17/2019 9:31am Height 72 inches 6'0" Weight 224.00 lb BP Systolic 130 mmHg BP Diastolic 76 mmHg Respiratory Rate 18 /min Pain Level 5 BMI (Body Mass Index) 30.4 kg/m2 Results Test Date Facility Test Result H/L Range Note Laboratory test 12/24/2018 Boarding Specialist In House Influenza A/B negative A&B finding Rapid Procedures Date Code Description Status 03/31/2019 10907 Inject/Drain Joint/Bursa Major W/O US Completed 02/11/2019 72539 Nerve Conduction 05-06 Studies Completed 02/11/2019 97489 Needle Electromyography Complete, Five Or More Muscles Completed Studied 10/01/2018 26262 EKG Tracing & Interpretation Completed Medical Devices Description No Information Available Encounters Type Date Location Provider Dx Diagnosis Office Visit 02/17/2019 Orthopedic Elton Allen MD M25.311 Other 9:30a [facility] instability, right shoulder S46.011D Strain of musc/tend the rotator cuff of right shoulder, subs M25.311 Other instability, right shoulder Office Visit 02/03/2019 1:45p Orthopedic Elton Allen M25.511 Pain in right [facility] M25.311 Other instability, right shoulder S43.004A Unspecified dislocation of right shoulder joint, init encntr Office Visit 01/29/2019 11:00a [facility] Internal Mary Steinberg, R25.2 Cramp and spasm Medicine - [facility] Office Visit 12/24/2018 1:40p [facility] David Skyler, RESTAURANT GREETER R50.9 Fever, unspecified Medicine - [facility] R53.81 Other malaise R05 Cough J45.20 Mild intermittent asthma, uncomplicated J06.9 Acute upper respiratory infection, unspecified Office Visit 10/01/2018 9:45a [facility] R00.2 Palpitations Srinivasa Hernandez M.D., FACC, FASCT Assessments Date Code Description Provider 03/31/2019 M25.311 Other instability, right shoulder Elton Allen MD 03/31/2019 S46.011D Strain of muscle(s) and tendon(s) Elton Allen MD of the rotator cuff of right shoulder, subsequent encounter 02/17/2019 M25.311 Other instability, right shoulder Elton Allen MD 02/17/2019 S46.011D Strain of muscle(s) and tendon(s) Elton Allen MD of the rotator cuff of right shoulder, subsequent encounter 02/17/2019 M25.311 Other instability, right shoulder Elton Allen MD 02/11/2019 R25.2 Cramp and spasm Renu Bowens M.D. 02/03/2019 M25.511 Pain in right shoulder Elton Allen MD 02/03/2019 M25.311 Other instability, right shoulder Elton Allen MD 02/03/2019 S43.004A Unspecified dislocation of right Elton Allen MD shoulder joint, initial encounter 01/29/2019 R25.2 Cramp and spasm Mary Steinberg MD 12/24/2018 R50.9 Fever, unspecified David Skyler, RESTAURANT GREETER 12/24/2018 R53.81 Other malaise David Skyler, RESTAURANT GREETER 12/24/2018 R05 Cough David Skyler, RESTAURANT GREETER 12/24/2018 J45.20 Mild intermittent asthma, David Skyler, RESTAURANT GREETER uncomplicated 12/24/2018 J06.9 Acute upper respiratory infection, David Skyler, RESTAURANT GREETER unspecified 10/01/2018 R00.2 Palpitations Jon Hernandez M.D., [facility], [facility] Plan of Treatment Future Appointment(s):04/21/2019 3:30 pm - Elton Allen MD at [facility]/02/2019 4:00 pm - Mary Galvez MD at [facility] Internal Medicine - [address]/31/2019 - Elton Allen, MDM25.311 Other instability, right shoulderFollow up:Follow up: 3-4 rvthbO24.011D Strain of muscle(s) and tendon( s) of the rotator cuff of right shoulder, subsequent encounter Functional Status Description No Information Available Mental Status Description No Information Available Referrals Description No Information Available
--- OUTSIDE RECORDS SUMMARY | 2019-04-07 08:40 | XMS REPORT | Continuity of Care Document ---
:1975 External Reference #:[id number] Author Name Elton Allen MD (transmitted by agent of provider Eli Basilio) Address [address] [facility], [facility] [place] [address] Care Team Providers Name Role Phone Mary Steinberg MD - Internal Medicine Care Team Information People Manager Problems Active Problems Provider Date Lumbosacral spondylosis without Mayur Jamison M.D. Onset: 12/21/2014 myelopathy Disturbance in sleep behavior Ilana Dunn MD Onset: 12/09/2015 Obesity Ilana Dunn MD Onset: 12/09/2015 Asthma David Holland NP Onset: 01/01/2017 Palpitations Jon Hernandez M.D., [facility], Onset: 10/01/2018 FASNC Strain of rotator cuff capsule Elton Allen MD Onset: 02/17/2019 Shoulder joint unstable Elton Allen MD Onset: 02/17/2019 Social History Type Date Description Comments Sex Unknown Tobacco Use Start: Unknown Quit 2 weeks ago as of Smoked for 25 yrs 12/09/15 ETOH Use Currently consumes 6 drinks/week alcohol Recreational Drug Use Current Drug User Marijuana Tobacco Use Start: Unknown End: Patient is a former Unknown smoker Recreational Drug Use Former Drug User Cocaine Smoking Status Reviewed: 02/17/19 Patient is a former smoker Exercise Type/Frequency [...] needed Albuterol 2 puffs four 1units J45.20 Daivd Holland NP 90mcg/Act Aerosol times a day [...] Available Vital Signs Date Vital Result Comment 02/17/2019 9:31am Height 72 inches 6'0" Weight 224.00 lb BP Systolic 130 mmHg BP Diastolic 76 mmHg Respiratory Rate 18 /min Pain Level 5 BMI (Body Mass Index) 30.4 kg/m2 02/03/2019 2:19pm Height 72 inches 6'0" Weight 224.00 lb Heart Rate 53 /min BP Systolic 122 mmHg BP Diastolic 86 mmHg Body Temperature 98.0 F Pain Level 7 BMI (Body Mass Index) 30.4 kg/m2 Results Test Date Facility Test Result H/L Range Note Laboratory test Chemical Processing Technician In House Influenza A/B negative A&B finding 9 Rapid CBC Auto Diff [facility] White Blood 8.2 10^3/uL Normal 3.5-10.[address] [place] [address] [phone] Red Blood Count 4.93 10^6/uL Normal 4.00-5.40 Hemoglobin 14.6 g/dL Normal 14.0-18.0 Hematocrit 43 % Normal 42-52 Mean Corpuscular Volume 86 fL Normal 80-94 Mean Corpuscular Hemoglobin 30 pg Normal 27-31 Mean Corpuscular HGB Conc 34 g/dL Normal 31-36 Red Cell Distribution Width 13 % Normal 10.5-15 Platelet Count 212 10^3/uL Normal 150-450 Mean Platelet Volume 7.6 fL Normal 7.4-10.4 Abs Neutrophils 4.5 10^3/uL Normal 1.5-7.7 Abs Lymphocytes 2.9 10^3/uL Normal 1.0-4.8 Abs Monocytes 0.7 10^3/uL Normal 0-0.8 Abs Eosinophils 0.1 10^3/uL Normal 0-0.6 Abs Basophils 0 10^3/uL Normal 0-0.2 Abs Nucleated RBC 0 10^3/uL Granulocyte % 55.2 % Lymphocyte % 35.1 % Monocyte % 8.2 % Eosinophil % 1.0 % Basophil % 0.5 % Nucleated Red Blood Cells % 0.1 Laboratory test 09/08/2018 [facility] Lactic Acid 0.8 mmol/L Normal 0.5-2.0 [address] [place] [address] [phone] Comp Metabolic 09/08/2018 [facility] Sodium 138 mmol/L Normal 135-[address] [place] [address] [phone] Potassium 3.9 mmol/L Normal 3.5-5.0 Chloride 103 mmol/L Normal 101-111 Co2 Carbon Dioxide 28 mmol/L Normal 22-32 Anion Gap 7 mmol/L Normal 2-11 Glucose 94 mg/dL Normal 70-100 Blood Urea Nitrogen 12 mg/dL Normal 6-24 Creatinine 0.80 mg/dL Normal 0.67-1.17 BUN/Creatinine Ratio 15.0 Normal 8-20 Calcium 9.3 mg/dL Normal 8.6-10.3 Total Protein 7.4 g/dL Normal 6.4-8.9 Albumin 4.6 g/dL Normal 3.2-5.2 Globulin 2.8 g/dL Normal 2-4 Albumin/Globulin Ratio 1.6 Normal 1-3 Total Bilirubin 0.50 mg/dL Normal 0.2-1.0 Alkaline Phosphatase 57 U/L Normal 34-104 Alt 31 U/L Normal 7-52 Ast 27 U/L Normal 13-39 Egfr Non- 106.5 >60 Egfr 128.9 >60 2 Laboratory test 09/08/2018 [facility] Troponin-I (TnI) 0.00 ng/ mL <0.04 3 finding [address] [place] [address] [phone] TSH (Thyroid Stim Horm) 1.53 mcIU/mL Normal 0.34-5.60 Laboratory test 09/08/2018 [facility] Lipase 19 U/L Normal 11.0-82.0 finding [address] [place] [address] [phone] 1 [facility] Severe Sepsis and Septic Shock Management Bundle [...] positive troponins reflex immediate secondary confirmatory testing. Procedures Date Code Description Status 10/01/2018 26921 EKG Tracing & Interpretation Completed 09/09/2018 20719 ECHO Transthorasic Realtime 2D W Doppler & Color Flow Hosp Completed 09/09/2018 90405 Treadmill Interp/Report Only Completed 09/09/2018 93907 Stress Test Supervsn W/Out I/R Completed Medical Devices Description No Information Available Encounters Type Date Location Provider Dx Diagnosis Office Visit 01/29/2019 [facility] Mary Steinberg MD R25.2 Cramp and spasm 11:00a Medicine - [facility] Office Visit 12/24/2018 [facility] David Holland INSURANCE POLICY CLERK R50.9 Fever, unspecified [facility] Other malaise R05 Cough J45.20 Mild intermittent asthma, uncomplicated J06.9 Acute upper respiratory infection, unspecified Office Visit 10/01/2018 9:45a [facility] Jon Wharton R00.2 Palpitations Of Srinivasa Hernandez M.D., [facility], [facility] Office Visit 09/12/2018 4:00p [facility] David Holland, I10 Essential Medicine - [facility] INSURANCE POLICY CLERK (primary) hypertension Office Visit 09/09/2018 9:19a [facility] Zulema R00.2 Pal[facility]ations [facility] I49.3 Ventricular premature depolarization I10 Essential (primary) hypertension Office Visit 09/08/2018 9:16a [facility] Carlyn Luu R00.2 Palpitations [facility]oc, [facility] I10 Essential (primary) hypertension Assessments Date Code Description Provider 02/17/2019 M25.311 Other instability, right shoulder Elton Allen MD 02/17/2019 S46.011A Strain of muscle(s) and tendon(s) of Elton Allen MD the rotator cuff of right shoulder, initial encounter 02/17/2019 M25.311 Other instability, right shoulder Elton Allen MD 02/03/2019 M25.511 Pain in right shoulder Elton Allen MD 02/03/2019 M25.311 Other instability, right shoulder Elton Allen MD 01/29/2019 R25.2 Cramp and spasm Mary Steinberg MD 12/24/2018 R50.9 Fever, unspecified David Skyler, INSURANCE POLICY CLERK 12/24/2018 R53.81 Other malaise David Skyler, INSURANCE POLICY CLERK 12/24/2018 R05 Cough David Skyler, INSURANCE POLICY CLERK 12/24/2018 J45.20 Mild intermittent asthma, David Skyler, INSURANCE POLICY CLERK uncomplicated 12/24/2018 J06.9 Acute upper respiratory infection, David Skyler, INSURANCE POLICY CLERK unspecified 10/01/2018 R00.2 Palpitations Jon Hernandez M.D., [facility], [facility] 09/12/2018 I10 Essential (primary) hypertension Davidmary Holland, INSURANCE POLICY CLERK 09/09/2018 R00.2 Palpitations KANDACE Boyer 09/09/2018 R07.9 Chest pain, unspecified Lindy Tapia MD, [facility], [facility] 09/09/2018 I49.3 Ventricular premature depolarization KANDACE Boyer 09/09/2018 R00.2 Palpitations Massimo Kwok M.D. 09/09/2018 I10 Essential (primary) hypertension KANDACE Boyer 09/08/2018 R00.2 Palpitations Carlyn Luu, N.P. 09/08/2018 I10 Essential (primary) hypertension Carlyn Luu, N.P. Plan of Treatment Future Appointment(s):03/31/2019 8:15 am - Elton Allen MD at [facility]02/17/2019 - Elton Allen, MDM25.311 Other instability, right shoulderNew Therapy:Physical TherapyFollow up:Follow up: 6 udgtiW50.011A Strain of muscle(s) and tendon(s) of the rotator cuff of right shoulder, initial encounterNew Therapy:Physical Therapy Functional Status Description No Information Available Mental Status Description No Information Available Referrals Description No Information Available
[2019-04-07 09:01] LABS: ABS Lymphocytes 2.5 10^3/ul (1.0-4.8); ABS Monocytes 0.8 10^3/ul (0-0.8); ABS Neutrophils 5.3 10^3/ul (1.5-7.7); Eosinophil % 0.2 %; Hematocrit 43 % (42-52); Hemoglobin 14.7 g/dL (14.0-18.0); Lymphocyte % 28.9 %; Mean Corpuscular HGB Conc 34 g/dL (31-36); Mean Corpuscular Hemoglobin 30 pg (27-31); Mean Corpuscular Volume 87 fL (80-94); Mean Platelet Volume 7.6 fL (7.4-10.4); Platelet Count 224 10^3/uL (150-450); Red Blood Count 4.91 10^6 /uL (4.18-5.48); Red Cell Distribution Width 14 % (10-15); White Blood Count 8.6 10^3/uL (3.5-10.8)
[2019-04-07 09:21] LABS: Albumin 4.4 g/dL (3.2-5.2); Albumin/Globulin Ratio 1.8 (1-3); BUN/Creatinine Ratio 26.6 (8-20); CRP High Sensitivity 0.45 mg/L (<2.00); Calcium 9.7 mg/dL (8.6-10.3); EGFR African American 130.1 (>60); EGFR Non-African American 107.6 (>60); Globulin 2.5 g/dL (2-4); Magnesium 2.2 mg/dL (1.9-2.7); Potassium 3.9 mmol/L (3.5-5.0); Total Bilirubin 0.6 mg/dL (0.2-1.0); Total Protein 6.9 g/dL (6.4-8.9)
[2019-04-07 10:26] LABS: Erythrocyte Sed Rate 5 mm/Hr (0-14)
[2019-04-07 11:23] VITALS: BP 132/84
--- NOTE | 2019-04-07 11:32 | ED ---
Headache - HPI Summary HPI Summary: This patient is a 44-year-old male presenting with a headache 5 days. Patient states the headache is severe, rated an 8/10, however not worst of life. Denies history of migraines. Denies any aura but endorses photophobia. Denies any photophobia. Patient has been denying any fevers, sweats, chills, rashes or other recent illness. He states he does possibly have some sleep apnea however has not followed up on this. Symptoms are typically worse in the morning. He takes amlodipine daily for his hypertension, however has been denying any CPR or SOB. He denies any visual changes, confusion, memory loss, tearing from the eyes. Denies any recent rhinorrhea, cough or congestion. - History Of Current Complaint Chief Complaint: EDHeadache Stated Complaint: HEADACHE X4 DAYS PER PT Time Seen by Provider: 04/07/19 08:25 Hx Obtained From: Patient Onset/Duration: Gradual Onset Currently Pain Is: Current Pain Scale(0-10)= - 8 Timing: Intermittent, Lasting:, Days Character: Pressure Location of Headache: Diffuse Aggravating Factor: Nothing Allevating Factors: Nothing Associated Signs And Symptoms: Negative - Risk Factors SAH Risk Factors: Negative Meningitis Risk Factors: Negative SDH Risk Factors: Negative Temporal Arteritis Risk Factors: Negative - Allergies/Home Medications Allergies/Adverse Reactions: Allergies Allergy/AdvReac Type Severity Reaction Status Date / Time bee venom protein (honey bee) Allergy Severe Anaphylatic Verified 04/07/19 08:36 Shock shellfish derived Allergy Severe GI Upset Verified 04/07/19 08:36 PMH/Surg Hx/FS Hx/Imm Hx Previously Healthy: Yes Endocrine/Hematology History: Denies: Hx Anticoagulant Therapy, Hx Blood Disorders, Hx Diabetes, Hx Thyroid Disease Cardiovascular History: Reports: Hx Hypertension - on atenolol Denies: Hx Angina, Hx Congestive Heart Failure, Hx Coronary Artery Disease, Hx Myocardial Infarction, Hx Pacemaker/ICD, Hx Valvular Heart Disease Respiratory History: Reports: Hx Asthma - INHALER NEEDED (well controlled), Other Respiratory Problems/Disorders - POOR RESPIRATORY TEST 4 yrs ago + skin TB test - had (-) serial CXR's tx'd Denies: Hx Chronic Obstructive Pulmonary Disease (COPD) GI History: Reports: Hx Gastroesophageal Reflux Disease - on med Denies: Hx Ulcer History: Reports: Hx Kidney Stones - 2010 Denies: Hx Dialysis, Hx Renal Disease Musculoskeletal History: Denies: Hx Rheumatoid Arthritis, Hx Osteoporosis Sensory History: Denies: Hx Contacts or Glasses, Hx Hearing Aid Opthamlomology History: Denies: Hx Contacts or Glasses Neurological History: Reports: Hx Migraine - triggered by low magnesium in the past Psychiatric History: Reports: Hx Anxiety - no meds Denies: Hx Panic Disorder, Hx of Violent Episodes Against Others - Surgical History Surgery Procedure, Year, and Place: October 2010 - Kidney stone removed. tonsillectomy as a child. 2000 - repaired laceration to right hand. had spinal tap to r/o meningitis - had to have blood patch next day. CHOLECYSTECTOMY Hx Anesthesia Reactions: No - Immunization History Date of Tetanus Vaccine: 2011 Date of Influenza Vaccine: None Hx Pertussis Vaccination: No Immunizations Up to Date: Yes Infectious Disease History: No Infectious Disease History: Denies: Hx Clostridium Difficile, Hx Hepatitis, Hx Human Immunodeficiency Virus (HIV), Hx of Known/Suspected MRSA, Hx Shingles, Hx Tuberculosis, Hx Known/ Suspected VRE, Hx Known/Suspected VRSA, History Other Infectious Disease, Traveled Outside the [place] in Last 30 Days - Family History Known Family History: Positive: Cardiac Disease - MOM AND DAD BOTH HAD 3V CABG IN THEIR 50s, Hypertension, Diabetes - brother, recent, Other - cancer - Social History Occupation: Employed Full-time Lives: With Family Alcohol Use: Weekly Alcohol Amount: Few beers on the weekends Hx Substance Use: Yes Substance Use Type: Reports: Marijuana Substance Use Comment - Amount & Last Used: states socially-denies any other drug use Hx Tobacco Use: Yes - not currently Smoking Status (MU): Former Smoker Type: Cigarettes Amount Used/How Often: More than 1.5 pack per day Length of Time of Smoking/Using Tobacco: 27 years old Have You Smoked in the Last Year: No Review of Systems Negative: Fever, Chills, Fatigue, Skin Diaphoresis Negative: Epistaxis, Dental Pain Negative: Palpitations, Chest Pain Negative: Shortness Of Breath, Cough Genitourinary: Negative Positive: no symptoms reported, see HPI Negative: Arthralgia, Myalgia Positive: Headache All Other Systems Reviewed And Are Negative: Yes Physical Exam Triage Information Reviewed: Yes Vital Signs On Initial Exam: Initial Vitals Temp Pulse Resp BP Pulse Ox 98.3 F 56 18 158/94 95 04/07/19 08:20 04/07/19 08:20 04/07/19 08:20 04/07/19 08:20 04/07/19 08:20 Vital Signs Reviewed: Yes Appearance: Positive: Well-Appearing, Well-Nourished Skin: Positive: Warm, Skin Color Reflects Adequate Perfusion Head/Face: Positive: Normal Head/Face Inspection Eyes: Positive: EOMI, JAIME, Conjunctiva Clear Neck: Positive: Supple, No Lymphadenopathy Respiratory/Lung Sounds: Positive: Clear to Auscultation, Breath Sounds Present Cardiovascular: Positive: RRR, Pulses are Symmetrical in both Upper and Lower Extremities Musculoskeletal: Positive: Strength/ROM Intact Neurological: Positive: Speech Normal Psychiatric: Positive: Normal, Affect/Mood Appropriate AVPU Assessment: Alert Procedures - Sedation Patient Received Moderate/Deep Sedation with Procedure: No - dislike credentialing Diagnostics - Vital Signs Vital Signs Temp Pulse Resp BP Pulse Ox 04/07/19 11:22 98.2 F 59 18 132/84 96 04/07/19 11:19 57 132/84 97 04/07/19 11:01 57 16 96 04/07/19 10:59 52 17 143/114 96 04/07/19 10:29 44 15 131/79 97 04/07/19 10:00 47 16 97 04/07/19 09:59 48 14 137/78 97 04/07/19 09:29 50 16 144/91 95 04/07/19 09:18 47 17 148/92 98 04/07/19 09:00 15 04/07/19 08:59 66 20 173/101 96 04/07/19 08:30 55 97 04/07/19 08:29 54 151/97 97 04/07/19 08:20 98.3 F 56 18 158/94 95 - Laboratory Lab Results: Lab Results 04/07/19 04/07/19 Range/Units 08:52 08:52 WBC 8.6 (3.5-10.8) 10^3/uL RBC 4.91 (4.18-5.48) 10^6 /uL Hgb 14.7 (14.0-18.0) g/dL Hct 43 (42-52) % MCV 87 (80-94) fL MCH 30 (27-31) pg MCHC 34 (31-36) g/dL RDW 14 (10-15) % Plt Count 224 (150-450) 10^3/uL MPV 7.6 (7.4-10.4) fL Neut % (Auto) 61.3 % Lymph % (Auto) 28.9 % Tripp % (Auto) 9.2 % Eos % (Auto) 0.2 % Baso % (Auto) 0.4 % Absolute Neuts (auto) 5.3 (1.5-7.7) 10^3/ul Absolute Lymphs (auto) 2.5 (1.0-4.8) 10^3/ul Absolute Monos (auto) 0.8 (0-0.8) 10^3/ul Absolute Eos (auto) 0.0 (0-0.6) 10^3/ul Absolute Basos (auto) 0.0 (0-0.2) 10^3/ul Absolute Nucleated RBC 0.0 10^3/ul Nucleated RBC % 0.0 ESR 5 (0-14) mm/Hr Sodium 137 (135-145) mmol/L Potassium 3.9 (3.5-5.0) mmol/L Chloride 104 (101-111) mmol/L Carbon Dioxide 27 (22-32) mmol/L Anion Gap 6 (2-11) mmol/L BUN 21 (6-24) mg/dL Creatinine 0.79 (0.67-1.17) mg/dL Est GFR ( Amer) 130.1 (>60) Est GFR (Non-Af Amer) 107.6 (>60) BUN/Creatinine Ratio 26.6 H (8-20) Glucose 133 H (70-100) mg/dL Calcium 9.7 (8.6-10.3) mg/dL Magnesium 2.2 (1.9-2.7) mg/dL Total Bilirubin 0.60 (0.2-1.0) mg/dL AST 16 (13-39) U/L ALT 40 (7-52) U/L Alkaline Phosphatase 59 (34-104) U/L C-React Prot High Sens 0.45 (<2.00) mg/L Total Protein 6.9 (6.4-8.9) g/dL Albumin 4.4 (3.2-5.2) g/dL Globulin 2.5 (2-4) g/dL Albumin/Globulin Ratio 1.8 (1-3) Result Diagrams: 04/07/19 08:52 04/07/19 08:52 Lab Statement: Any lab studies that have been ordered have been reviewed, and results considered in the medical decision making process. Headache Course/Dx - Course Course Of Treatment: During his course of treatment, the patient is evaluated for acute migraine symptoms. Patient states he has been having symptoms intermittently 5 days. He is endorsing pain and vomiting/10. He was repleted with fluids, given Toradol, Reglan and Benadryl. Symptoms completely resolved. Discussed with the patient he will need follow-up regarding his possible ANJU component which could be why he is having headaches in the morning. Labs are obtained which are all unremarkable except for 26.6 BUN. This patient has improved, he will be discharged with diagnosis of headache. He will be prescribed Reglan and Toradol for any symptoms. He will follow up with his PCP. CT brain was waved at this time as this is not worst headache of life and patient had complete resolution of symptoms. - Diagnoses Differential Diagnosis/HQI/PQRI: Migraine, Sinus Headache, Other Provider Diagnoses: Headache Discharge ED - Sign-Out/Discharge Documenting (check all that apply): Patient Departure Patient Received Moderate/Deep Sedation with Procedure: No - Discharge Plan Condition: Stable Disposition: HOME Prescriptions: Ketorolac TAB * [Toradol TAB *] 10 mg PO Q6H #16 tab Metoclopramide TAB* [Reglan TAB*] 10 mg PO Q6H PRN #12 tab MDD 4 PRN Reason: Nausea Patient Education Materials: Migraine Headache (ED) Forms: *Work Release Referrals: David Holland NP [Primary Care Provider] - Additional Instructions: Benadryl 25 mg up to 4 times daily Toradol 10 mg up to 4 times daily, your next dose will be around 3 PM Reglan 10 mg up to 4 times daily At the first site of a migraine, take all medications simultaneously with plenty of fluids If symptoms continue, follow up with PCP or return to the ED Continue your follow-up for possible sleep apnea - Billing Disposition and Condition Condition: STABLE Disposition: Home - Attestation Statements Provider Attestation: pt seen by midlevel provider independently, based on their assessment, it was not necessary to present the case to me but I was available for consultation. I did not form a physician-patient relationship with the patient. The chart however, has been reviewed. am signing this note strictly in an administrative capacity.
== END 2019-04-07 11:20 | disposition home or self-care (01) ==
LOC: ED 08:14
DX: R51 Headache (principal); I10 Essential (primary) hypertension; J45.909 Unspecified asthma, uncomplicated; K21.9 Gastro-esophageal reflux disease without esophagitis; Z91.030 Bee allergy status; Z91.013 Allergy to seafood; Z87.891 Personal history of nicotine dependence
CPT/HCPCS: 36415; 80053; 83735; 85025; 85652; 86141; 96361; 96374; 96375; 99283; J1200; J1885; J2765

== ENCOUNTER 2019-05-20 09:29 | Emergency (ER) | payer OTHER ==
--- OUTSIDE RECORDS SUMMARY | 2019-05-20 09:46 | XMS REPORT | Continuity of Care Document ---
:1975 External Reference #:[id number] Author Name Elton Allen MD (transmitted by agent of provider Kori Michael) Address [address] [facility], [facility] [place] [address] Care Team Providers Name Role Phone Mary Steinberg MD - Internal Medicine Care Team Information Guest Service Manager [phone] Problems Active Problems Provider Date Lumbosacral spondylosis without Mayur Jamison M.D. Onset: 12/21/2014 myelopathy Disturbance in sleep behavior Ilana Dunn MD Onset: 12/09/2015 Obesity Ilana Dunn MD Onset: 12/09/2015 Asthma David Holland NP Onset: 01/01/2017 Palpitations Jon Hernandez M.D., [facility], Onset: 10/01/2018 [facility] Shoulder joint unstable Elton Allen MD Onset: 02/17/2019 Strain of rotator cuff capsule Elton Allen MD Onset: 02/17/2019 Unspecified dislocation of right Elton Allen MD Onset: 04/21/2019 shoulder joint, subsequent encounter Disorder of shoulder Elton Allen MD Onset: 04/21/2019 Social History Type Date Description Comments Sex Unknown Tobacco Use Start: Unknown Quit 3 years ago. Used to smoke 1 and half pack per day since 15 years. ETOH Use Currently consumes 6 drinks/week alcohol Recreational Drug Use Current Drug User Marijuana Tobacco Use Start: Unknown End: Patient is a former Unknown smoker Recreational Drug Use Former Drug User Cocaine Smoking Status Reviewed: 04/21/19 Patient is a former smoker Exercise Type/Frequency [...] Inflate weekly at home Misc Fluticasone Propionate [place] 2 Sprays 16units R51 David Holland NP [...] Medication SIG Qnty Indications Ordering Provider Date Triamcinolone (Kenalog) Elton Allen MD 03/31/2019 Injection Depomedrol 40MG STACY Pastrana 03/19/2018 Injection Depomedrol 40MG Patti Espinosa, RPA-C 08/29/2017 Injection Immunizations Description No Information Available Vital Signs Date Vital Result Comment 04/21/2019 3:35pm Height 72 inches 6'0" Weight 225.00 lb Heart Rate 70 /min BP Systolic 142 mmHg BP Diastolic 78 mmHg Respiratory Rate 14 /min Pain Level 5 BMI (Body Mass Index) 30.5 kg/m2 04/02/2019 3:38pm Height 72 inches 6'0" Weight 229.00 lb Heart Rate 55 /min BP Systolic Sitting 128 mmHg Lue reg cuff BP Diastolic Sitting 76 mmHg Lue reg cuff O2 % BldC Oximetry 98 % BMI (Body Mass Index) 31.1 kg/m2 Results Test Date Facility Test Result H/L Range Note Comp Metabolic 04/07/2019 [facility] Sodium 137 mmol/L Normal 135-[address] [place] [address] [phone] Potassium 3.9 mmol/L Normal 3.5-5.0 Chloride 104 mmol/L Normal 101-111 Co2 Carbon Dioxide 27 mmol/L Normal 22-32 Anion Gap 6 mmol/L Normal 2-11 Glucose 133 mg/dL High 70-100 Blood Urea Nitrogen 21 mg/dL Normal 6-24 Creatinine 0.79 mg/dL Normal 0.67-1.17 BUN/Creatinine Ratio 26.6 High 8-20 Calcium 9.7 mg/dL Normal 8.6-10.3 Total Protein 6.9 g/dL Normal 6.4-8.9 Albumin 4.4 g/dL Normal 3.2-5.2 Globulin 2.5 g/dL Normal 2-4 Albumin/Globulin Ratio 1.8 Normal 1-3 Total Bilirubin 0.60 mg/dL Normal 0.2-1.0 Alkaline Phosphatase 59 U/L Normal 34-104 Alt 40 U/L Normal 7-52 Ast 16 U/L Normal 13-39 Egfr Non- 107.6 >60 Egfr 130.1 >60 1 Laboratory test 04/07/2019 [facility] Magnesium 2.2 mg/dL Normal 1.9-2.[address] [place] [address] [phone] CRP High Sensitivity 0.45 mg/L <2.00 CBC Auto 04/07/2019 [facility] White Blood 8.6 10^3/uL Normal 3.5-10.[address] [place] [address] [phone] Red Blood Count 4.91 10^6/uL Normal 4.18-5.48 Hemoglobin 14.7 g/dL Normal 14.0-18.0 Hematocrit 43 % Normal 42-52 Mean Corpuscular Volume 87 fL Normal 80-94 Mean Corpuscular Hemoglobin 30 pg Normal 27-31 Mean Corpuscular HGB Conc 34 g/dL Normal 31-36 Red Cell Distribution Width 14 % Normal 10-15 Platelet Count 224 10^3/uL Normal 150-450 Mean Platelet Volume 7.6 fL Normal 7.4-10.4 Abs Neutrophils 5.3 10^3/uL Normal 1.5-7.7 Abs Lymphocytes 2.5 10^3/uL Normal 1.0-4.8 Abs Monocytes 0.8 10^3/uL Normal 0-0.8 Abs Eosinophils 0.0 10^3/uL Normal 0-0.6 Abs Basophils 0.0 10^3/uL Normal 0-0.2 Abs Nucleated RBC 0.0 10^3/uL Granulocyte % 61.3 % Lymphocyte % 28.9 % Monocyte % 9.2 % Eosinophil % 0.2 % Basophil % 0.4 % Nucleated Red Blood Cells % 0.0 Laboratory test 04/07/2019 [facility] Erythrocyte Sed 5 mm/Hr Normal 0-[address] [place] [address] [phone] Laboratory test 12/24/2018 [facility] Influenza A/B negative A&B finding Rapid 1 Because ethnic data is not always readily [...] 15-29 5 Kidney failure <15 (or dialysis) Procedures Date Code Description Status 03/31/2019 00940 Inject/Drain Joint/Bursa Major W/O US Completed 02/11/2019 83255 Nerve Conduction 05-06 Studies Completed 02/11/2019 66245 Needle Electromyography Complete, Five Or More Muscles Completed Studied Medical Devices Description No Information Available Encounters Type Date Location Provider Dx Diagnosis Office Visit [facility]2019 [facility], S43.004D Unspecified 8:15a at [place] dislocation of right shoulder joint, subs encntr M75.41 Impingement syndrome of right shoulder Office Visit 02/17/2019 Flor[facility] Allen M25.311 Other instability, 9:30a Orthopedics at right shoulder [place] S46.011D Strain of musc/tend the rotator cuff of right shoulder, subs M25.311 Other instability, right shoulder Office Visit 02/03/2019 1:45p [facility] Elton Allen, M25.511 Pain in right at [place] shoulder M25.311 Other instability, right shoulder S43.004A Unspecified dislocation of right shoulder joint, init encntr Office Visit 01/29/2019 11:00a [facility] Internal Mary Idris, R25.2 [facility]amp [facility] 12/24/2018 1:40p [facility] Internal David Skyler, REALTIME REPORTER R50.9 Fever, unspecified [facility] R53.81 Other malaise R05 Cough J45.20 Mild intermittent asthma, uncomplicated J06.9 Acute upper respiratory infection, unspecified Assessments Date Code Description Provider 04/21/2019 S43.004D Unspecified dislocation of right shoulder Elton Allen MD joint, subsequent encounter 04/21/2019 M75.41 Impingement syndrome of right shoulder Elton Allen MD 04/02/2019 Z00.00 Encounter for general adult medical Mary Galvez MD examination without abnormal findings 04/02/2019 I10 Essential (primary) hypertension Mary Galvez MD 04/02/2019 J45.20 Mild intermittent asthma, uncomplicated Mary Galvez MD 04/02/2019 R51 Headache Mary Galvez MD 03/31/2019 S43.004D Unspecified dislocation of right shoulder Elton Allen MD joint, subsequent encounter 03/31/2019 M75.41 Impingement syndrome of right shoulder Elton Allen MD 02/17/2019 M25.311 Other instability, right shoulder Elton Allen MD 02/17/2019 S46.011D Strain of muscle(s) and tendon(s) of the Elton Allen MD rotator cuff of right shoulder, subsequent encounter 02/17/2019 M25.311 Other instability, right shoulder Elton Allen MD 02/11/2019 R25.2 Cramp and spasm Renu Bowens M.D. 02/03/2019 M25.511 Pain in right shoulder Elton Allen MD 02/03/2019 M25.311 Other instability, right shoulder Elton Allen MD 02/03/2019 S43.004A Unspecified dislocation of right shoulder Elton Allen MD joint, initial encounter 01/29/2019 R25.2 Cramp and spasm Mary Steinberg MD 12/24/2018 R50.9 Fever, unspecified David Skyler, REALTIME REPORTER 12/24/2018 R53.81 Other malaise Davidmary Holland, REALTIME REPORTER 12/24/2018 R05 Cough David Skyler, REALTIME REPORTER 12/24/2018 J45.20 Mild intermittent asthma, uncomplicated David Skyler, REALTIME REPORTER 12/24/2018 J06.9 Acute upper respiratory infection, David Skyler, REALTIME REPORTER unspecified Plan of Treatment Future Appointment(s):05/26/2019 3:00 pm - Elton Allen MD at [facility] at [place]/21/2019 - NATASHA Ross43.004D Unspecified dislocation of right shoulder joint, subsequent encounterFollow up:Follow up: 5 zizefI62.41 Impingement syndrome of right shoulder Functional Status Description No Information Available Mental Status Description No Information Available Referrals Description No Information Available
--- NOTE | 2019-05-20 12:06 | UC ---
UC General HPI - HPI Summary HPI Summary: 44-year-old male comes in with chief complaint of throat pain.'s been going on for about a week. 2 weeks ago he was treated with azithromycin for sinusitis and he reports the sinusitis symptoms have improved. He is using Flonase. He is on Zantac for GERD. Patient feels like there is something stuck in his throat. He points to the level of the upper sternum down through the mid chest into the upper stomach when he describes the area of the pain. Is able eat and drink. No fevers no chills. - History of Current Complaint Chief Complaint: UCGeneralIllness Stated Complaint: SORE THROAT CHEST CONGESTION Time Seen by Provider: 05/20/19 11:28 Pain Intensity: 0 - Allergy/Home Medications Allergies/Adverse Reactions: Allergies Allergy/AdvReac Type Severity Reaction Status Date / Time bee venom protein (honey bee) Allergy Severe Anaphylatic Verified 05/20/19 09:54 Shock shellfish derived Allergy Severe GI Upset Verified 05/20/19 09:54 PMH/Surg Hx/FS Hx/Imm Hx Previously Healthy: Yes Cardiovascular History: Hypertension GI/ History: Gastroesophageal Reflux Other History Of: Negative For: Anticoagulant Therapy - Surgical History Surgical History: Yes Surgery Procedure, Year, and Place: October 2010 - Kidney stone removed. tonsillectomy as a child. 2000 - repaired laceration to right hand. had spinal tap to r/o meningitis - had to have blood patch next day. CHOLECYSTECTOMY - Family History Known Family History: Positive: Cardiac Disease - MOM AND DAD BOTH HAD 3V CABG IN THEIR 50s, Hypertension, Diabetes - brother, recent, Other - cancer - Social History Alcohol Use: Weekly Alcohol Amount: Few beers on the weekends Substance Use Type: Marijuana Substance Use Comment - Amount & Last Used: states socially-denies any other drug use Smoking Status (MU): Former Smoker Type: Cigarettes Amount Used/How Often: More than 1.5 pack per day Length of Time of Smoking/Using Tobacco: 27 years old Have You Smoked in the Last Year: No When Did the Patient Quit Smoking/Using Tobacco: 04/06/16 Household Exposure Type: Cigarettes - Immunization History Most Recent Influenza Vaccination: never gets Most Recent Tetanus Shot: UTD Review of Systems All Other Systems Reviewed And Are Negative: Yes Constitutional: Positive: Other - SEE HPI Skin: Positive: Negative Eyes: Positive: Negative ENT: Positive: Sore Throat, Other - SEE HPI Respiratory: Positive: Negative Cardiovascular: Positive: Other - SEE HPI Gastrointestinal: Positive: Negative Motor: Positive: Negative Neurovascular: Positive: Negative Musculoskeletal: Positive: Negative Neurological: Positive: Negative Psychological: Positive: Negative Is Patient Immunocompromised?: No Physical Exam Triage Information Reviewed: Yes Appearance: Well-Appearing, No Pain Distress, Well-Nourished Vital Signs: Initial Vital Signs Temp 99 F 05/20/19 09:51 Pulse 63 05/20/19 09:51 Resp 16 05/20/19 09:51 BP 124/86 05/20/19 09:51 Pulse Ox 100 05/20/19 09:51 Vital Signs Reviewed: Yes Eye Exam: Normal Eyes: Positive: Conjunctiva Clear ENT: Positive: Pharynx normal, TMs normal Neck: Positive: Supple Respiratory: Positive: Lungs clear, Normal breath sounds, No respiratory distress Cardiovascular: Positive: RRR Abdomen Description: Positive: Nontender, Soft Musculoskeletal: Positive: Strength Intact, ROM Intact Neurological: Positive: Alert, Muscle Tone Normal Psychological: Positive: Normal Response To Family, Age Appropriate Behavior Skin Exam: Normal Course/Dx - Course Course Of Treatment: The location of the patient points to his esophageal. He recently had a sinusitis was treated with Dirk azithromycin. He is on Zantac for GERD. If there is an esophageal irritation it could be from postnasal drip or from the azithromycin or from GERD. Patient's able eat and drink while without any increase in the pain which makes me believe there is no foreign in the esophagus. Plan is to switch [id number] proton pump inhibitor. Follow- up his primary care doctor and/or urology if not improved. Go the emergency department if worse. - Diagnoses Provider Diagnosis: Throat pain in adult Discharge ED - Sign-Out/Discharge Documenting (check all that apply): Patient Departure All imaging exams completed and their final reports reviewed: No Studies - Discharge Plan Condition: Stable Disposition: HOME Prescriptions: Pantoprazole TAB * [Protonix TAB*] 40 mg PO DAILY #30 tab Patient Education Materials: Gastroesophageal Reflux Disease (ED) Referrals: David Holland NP [Primary Care Provider] - Ronaldo Dennis DO [Doctor of Osteopathy] - Additional Instructions: FOLLOW UP WITH YOUR PRIMARY CARE DOCTOR AND/OR GASTROENTEROLOGY IF NOT COMPLETELY IMPROVED. GET REEVALUATED SOONER IF NOT IMPROVED OR WORSE OR ANY QUESTIONS OR CONCERNS. - Billing Disposition and Condition Condition: STABLE Disposition: Home
[2019-05-20 12:26] VITALS: BP 140/82
== END 2019-05-20 12:20 | disposition home or self-care (01) ==
LOC: UCEAST 09:29
DX: R07.0 Pain in throat (principal); I10 Essential (primary) hypertension; R09.82 Postnasal drip; Z91.030 Bee allergy status; Z91.013 Allergy to seafood; Z87.891 Personal history of nicotine dependence
CPT/HCPCS: 87651; 99212; G0463

== ENCOUNTER 2019-05-25 09:18 | Day surgery (SDC) | payer OTHER ==
--- NOTE | 2019-05-22 15:13 | HP ---
PREOPERATIVE HISTORY AND PHYSICAL: DATE OF ADMISSION/SURGERY: 05/25/19 DATE OF OFFICE VISIT: 05/22/19 ATTENDING SURGEON: Dr. Elton Allen.* (DICTATED BY KANDACE ROTH) PROCEDURE: Right shoulder arthroscopic decompression, arthroscopic debridement , subpectoral biceps tenodesis, possible arthroscopic labral repair. CHIEF COMPLAINT: Right shoulder. HISTORY OF PRESENT ILLNESS: Paulie is a 44-year-old male who presents to the clinic for right shoulder pain due to a work-related injury that caused biceps tendinitis, impingement, and possible labral tear. He has failed conservative management, therefore agreed to undergo a right shoulder arthroscopic decompression, arthroscopic debridement, subpectoral biceps tenodesis, possible arthroscopic labral repair with Dr. Allen on 05/25/19. PAST MEDICAL HISTORY: Asthma, hypertension, colitis, kidney stones, GERD, anxiety, history of alcohol abuse. PAST SURGICAL HISTORY: Kidney stones, tonsils, cholecystectomy, and right hand surgery. The patient denies prior complications with anesthesia. MEDICATIONS: 1. Benzonatate 100 mg 1 to 2 caps every 8 hours as needed for cough. 2. Epinephrine 0.3 mg/0.3 mL 1 injection as needed for allergic reaction. 3. Atenolol 25 mg 1 every day. 4. Amlodipine 5 mg once daily. 5. Fluticasone 50 mcg/act 2 sprays each nostril as needed. 6. Ventolin HFA 108/90 mcg/act 2 puffs 4 times a day as needed. 7. Multivitamin 1 daily. 8. Magnesium 250 mg 1 daily. 9. Vitamin B1 daily. 10. Fexofenadine 180 mg 1 daily. 11. Pantoprazole 40 mg 1 daily. ALLERGIES: BEE STING, SHELL FISH, DRIED products. FAMILY HISTORY: Denies pertinent family history. Denies family history of DVT or PE. 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 He denies tobacco use. He reports occasional marijuana consumption. He drinks alcohol occasionally. He is right hand dominant. REVIEW OF SYSTEMS: A 14-point review of systems was reviewed with the patient. Positive for current complaint, otherwise negative. Denies fever, chills, chest pain, shortness of breath, history of bleeding disorder, history of DVT or PE. PHYSICAL EXAMINATION GENERAL: A 44-year-old well-developed, well-nourished male, in no acute distress. VITAL SIGNS: Height 72, weight 223, pulse is 57, blood pressure 126/71, temperature 98.2, BMI 30.2. HEENT: Normocephalic, atraumatic. PERRL. Throat clear. NECK: Supple. PULMONARY: Lungs are clear to auscultation bilaterally. No wheezing, rhonchi, or rales. CARDIAC: Regular rate and rhythm. S1, S2. No murmurs, gallops, or rubs. No edema. ABDOMEN: Positive bowel sounds. Soft, nontender. NEURO: Alert and oriented x3. Cranial nerves grossly intact. MUSCULOSKELETAL: Right upper extremity: Skin is intact. No warmth or erythema. Tenderness of the bicipital groove and subacromial space. Forward flexion and abduction at 90, passive to 100. External rotation 65, internal rotation to the lumbar spine. +4/5 strength to rotator cuff testing with pain. Positive impingement, [place], [place], [place], and [place]. +2 radial pulse. Sensation intact to light touch distally. STUDIES: MRI of the right shoulder revealed small anterior labral tear that appears not displaced as well as fluid in the subacromial space. Rotator cuff appears intact and fluid around the biceps tendon. IMPRESSION: Right shoulder biceps tendinitis, impingement and possible labral tear. PLAN: The patient is scheduled to undergo a right shoulder arthroscopic decompression, arthroscopic debridement, subpectoral biceps tenodesis, possible arthroscopic labral repair with Dr. Allen on 05/25/19. He will follow up 10 to 14 days postop for followup and suture removal. Percocet and ibuprofen will be used for postop pain management. KANDACE ROTH [id number]/[facility] #: [id number] [facility] HOSPITALIlya
[~2019-05-25 09:18] MED LIST changes: +Buffered Lidocaine 1% SYRIN* 1 ML/SYRINGE INTRADERM ONE; +Dexamethasone IV* 4 MG/ML 1 ML (4 MG) IV SLOW PU ONE; +Dexamethasone IV* 4 MG/ML 1 ML (4 MG) ONE; -DiMENhydriNATE IV* 50 MG/ML VIAL IV PUSH ONE; +Famotidine IV* 10 MG/ML 2 ML (20 mg) IV ONE; +Famotidine IV* 10 MG/ML 2 ML (20 mg) ONE; +Lactated Ringers 1000 ML Bag* 1,000 ML IV SCH; -NS 0.9% 1000 ML** 1,000 ML IV ONE; -PROCHLORPERAZINE INJ 5 MG/ML 2 ML VIAL IV ONE
[2019-05-25] MEDS ORDERED: ceFAZolin 2 GM in NS PREMIX(*) 2 GM/100 ML BAG IVPB ONE (09:25)
[2019-05-25] MEDS ORDERED: Ropivacaine 0.2% * 2 MG/ML VIAL ONE ×2 (10:47→12:16)
[2019-05-25] MEDS ORDERED: ROPIVACAINE 5 MG/ML 30 ML BTL (0.5%) ONE (10:51)
[2019-05-25] MEDS ORDERED: fentaNYL* 50 MCG/ML 2 ML VIAL (100 MCG VIAL) ONE (10:51)
[2019-05-25] MEDS ORDERED: Midazolam* 1 MG/ML 2 ML VIAL (2 MG) ONE (10:52)
[2019-05-25] MEDS ORDERED: Lidocaine 2% PF * 5 ML VIAL ONE (10:53)
[2019-05-25] MEDS ORDERED: Propofol* 10 MG/ML 20 ML BTL ONE (11:13)
[2019-05-25] MEDS ORDERED: methylPREDNISolone ACETATE 80* 80 MG/ML 1 ML VIAL ONE (12:19)
[2019-05-25] MEDS ORDERED: Ondansetron INJ* 2 MG/ML VIAL ONE (12:30)
[2019-05-25 14:42] VITALS: BP 133/76
--- NOTE | 2019-05-25 15:43 | OP ---
DATE OF OPERATION: 05/25/19 [facility] DATE OF : 79 SURGEON: Elton Allen MD STROKE PROGRAM COORDINATOR: KANDACE Saenz. An academic support assistant was needed for the entirety of the case to help with positioning, retraction, and was utilized throughout all portions of the case. ANESTHESIOLOGIST: Dr. Hays. ANESTHESIA: General with interscalene block. PRE-OP DIAGNOSIS: Right shoulder one-time dislocation with impingement and bicipital tendinitis. POST-OP DIAGNOSIS: Right shoulder one-time dislocation with impingement and bicipital tendinitis. OPERATIVE PROCEDURE: Right shoulder arthroscopy with: 1. Extensive glenohumeral debridement. 2. Subacromial decompression with acromioplasty. 3. Biceps tenodesis, subpectoral. COMPLICATIONS: None. ESTIMATED BLOOD LOSS: Minimal. INDICATIONS: Jordy Beltran is a 44-year-old male who sustained work-related injury in January. He had a one-time dislocation. He has no longer had episodes of instability, but he had pain. He also has catching from the biceps anteriorly. He has elected to proceed with surgical treatment. Risks and benefits were discussed at length and included, but were not limited to bleeding ; infection; damage to nerves, vessels, surrounding structures; wound nonhealing ; persistent pain; need for further surgery; scarring; stiffness; incomplete relief of symptoms; risks of anesthesia. DESCRIPTION OF PROCEDURE: The patient was greeted in the preoperative area by the attending surgeon. Correct extremity was marked and consent was confirmed. After undergoing interscalene nerve block, he was brought back to the operating suite where he was placed in the supine position on the operating table. The patient underwent general anesthesia and LMA intubation, after which he was placed in the left lateral decubitus position with an axillary roll. All bony prominences were padded. He was secured with a pegboard. The right arm was draped unsterile with 10 pounds of traction. Right shoulder was then prepped and draped in the usual sterile fashion beginning with chlorhexidine soap, scrub, and alcohol wipe, and a final prep with ChloraPrep. After appropriate surgical pause indicating side, site, procedure, and administration of antibiotics, the standard postero-lateral portal was made sharply with an 11-blade. Scope was introduced into the joint and the joint was examined. There was synovitis that was present. The undersurface of the rotator cuff had no obvious tearing. The superior labrum was attached, but the biceps had synovitis and impingement. There was some mild fraying of the superior labrum. The anterior labrum was intact, but had evidence of degeneration. There was a small Hill-Sachs lesion. There was an unstable flap of the labrum posteriorly. This was debrided back. The anterior labrum was probed and found to be grossly intact. There was some degeneration to this and some of this was debrided back. The unstable flap posteriorly was also debrided back, but the labrum appeared to be grossly intact. There were small areas of chondrosis very anterior aspect of the labrum. The head was sitting appropriately and did not appear to be subluxed anteriorly. The biceps was then tenotomized for lateral tenodesis. The subscap was intact. Any excess debris was debrided back. Attention was directed to the subacromial space. With the scope positioned in the subacromial space, the lateral portal was made in an outside-in fashion. Shaver was used to debride back the abundant type bursa that was present. The undersurface of the acromion was then skeletonized using electrocautery device. The anterolateral spur was visualized and debrided back with a 4-0 oval rose. The cuff was then probed and found to be intact. Decision was made to treat this by doing a subacromial injection to decrease the impingement. An 18-gauge needle was placed under arthroscopic visualization. Attention was directed to the biceps. With the bed airplaned to the right side, the anterior aspect of the shoulder was prepped again using ChloraPrep. The 15-blade was used to make an incision along the biceps tendon. The pec was identified and elevated. The biceps was found in the groove and then brought through the wound. The groove was then prepared in the usual fashion using electrocautery device, red ball rasp, and osteotome to allow for bony bleeding bed. The Q-Fix was then drilled unicortically and the Q-Fix deployed with excellent purchase. The sutures were then shuttled through the biceps approximately 1 cm proximal to the musculotendinous junction in a Bradley- Fernando type configuration. It was then tied down. The excess stump was excised. It was then secured. The wounds were then copiously irrigated with sterile saline. The portals were closed with 3-0 nylon in interrupted fashion. The skin was closed anteriorly with 3-0 Monocryl in a subcutaneous and running fashion. Sterile dressings were applied. Cryo/ Cuff and UltraSling were applied. He was awoken from anesthesia and transferred to the PACU in stable condition. POSTOPERATIVE PLAN: He will be nonweightbearing for about 4 weeks. He will be discharged on pain medication. DVT prophylaxis was considered, but deferred due to no previous personal or family history. I will see the patient back in 2 weeks. He will be in a sling for 3 weeks. [id number]/[facility] #: [id number] [facility]ENTERIlya
== END 2019-05-25 15:21 | disposition home or self-care (01) ==
LOC: OREAST 09:18
PROVIDERS: ATTEND Orthopaedic Surgery
DX: S43.004S Unspecified dislocation of right shoulder joint, sequela (principal); X58.XXXS Exposure to other specified factors, sequela; Y92.89 Other specified places as the place of occurrence of the external cause; M75.41 Impingement syndrome of right shoulder; M75.21 Bicipital tendinitis, right shoulder; G89.18 Other acute postprocedural pain; I10 Essential (primary) hypertension; J45.909 Unspecified asthma, uncomplicated; K21.9 Gastro-esophageal reflux disease without esophagitis; Z87.891 Personal history of nicotine dependence
CPT/HCPCS: 71045; C1776; J0690; J1040; J1100; J2250; J2405; J2704; J2795; J3010

== ENCOUNTER 2019-07-14 08:03 | Emergency (ER) | payer OTHER ==
[2019-07-14] MEDS ORDERED: Aspirin 81 mg CHEW TAB* 81 MG TAB.CHEW PO ONE (08:30)
[2019-07-14 08:31] LABS: ABS Lymphocytes 2.3 10^3/ul (1.0-4.8); ABS Monocytes 0.6 10^3/ul (0-0.8); ABS Neutrophils 2.2 10^3/ul (1.5-7.7); Hematocrit 40 % (42-52); Hemoglobin 13.8 g/dL (14.0-18.0); Lymphocyte % 44.4 %; Mean Corpuscular HGB Conc 35 g/dL (31-36); Mean Corpuscular Hemoglobin 30 pg (27-31); Mean Corpuscular Volume 87 fL (80-94); Mean Platelet Volume 7.5 fL (7.4-10.4); Nucleated Red Blood Cells % 0.5; Platelet Count 196 10^3/uL (150-450); Red Blood Count 4.56 10^6 /uL (4.18-5.48); Red Cell Distribution Width 13 % (10-15); White Blood Count 5.1 10^3/uL (3.5-10.8)
--- NOTE | 2019-07-14 08:34 | ED ---
HPI Chest Pain - HPI Summary HPI Summary: This pt is a 44 y/o male [facility]/o midsternal chest pain for the past 1 week now. Pt reports he has been waking up every night for the past 1 week with sudden onset of chest pain. He describes chest pain as sharp and almost "like an anxiety feeling" in the center of his chest. Pt states he woke up 4 times last night. Additionally he states associated symptom of SOB, described as "trying to catch his breath." Pt notes these episodes of chest pain are quick. Pt also reports having migraine headache for the past few days. Pt reports ever since his shoulder surgery in May 2019 he has not felt comfortable. PMHx: HTN. Denies hx of cardiac disease. Patient did have a nuclear stress test in September 2018. Denies tobacco use, however reports marijuana use (last time was 2 weeks ago). - History of Current Complaint Chief Complaint: EDChestPainROMI Time Seen by Provider: 07/14/19 08:16 Hx Obtained From: Patient Onset/Duration: Started Days Ago, Still Present Timing: Lasting Days Current Severity: Moderate Pain Intensity: 8 Pain Scale Used: 0-10 Numeric Chest Pain Location: Mid Sternal Chest Pain Radiates: No Character: Sharp/Stabbing - sharp Aggravating Factor(s): Nothing Alleviating Factor(s): Nothing Associated Signs and Symptoms: Positive: Chest Pain, Headaches, Shortness of Breath. Negative: Fever - Allergy/Home Medications Allergies/Adverse Reactions: Allergies Allergy/AdvReac Type Severity Reaction Status Date / Time bee venom protein (honey bee) Allergy Severe Anaphylatic Verified 07/14/19 08:14 Shock shellfish derived Allergy Severe GI Upset Verified 07/14/19 08:14 Home Medications: Home Medications Amlodipine 2.5 mg TAB (NF) 2.5 mg PO DAILY 07/14/19 [History Confirmed 07/14/19] DOXYcycline CAP(*) [DOXYcycline 100MG CAP(*)] 100 mg PO BID 07/14/19 [History Confirmed 07/14/19] PMH/Surg Hx/FS Hx/Imm Hx Endocrine/Hematology History: Denies: Hx Anticoagulant Therapy, Hx Blood Disorders, Hx Diabetes, Hx Thyroid Disease Cardiovascular History: Reports: Hx Hypertension - on atenolol Denies: Hx Angina, Hx Congestive Heart Failure, Hx Coronary Artery Disease, Hx Myocardial Infarction, Hx Pacemaker/ICD, Hx Valvular Heart Disease Respiratory History: Reports: Hx Asthma - INHALER NEEDED (well controlled), Other Respiratory Problems/Disorders - POOR RESPIRATORY TEST 4 yrs ago + skin TB test - had (-) serial CXR's tx'd Denies: Hx Chronic Obstructive Pulmonary Disease (COPD) GI History: Reports: Hx Gastroesophageal Reflux Disease - on med Denies: Hx Ulcer History: Reports: Hx Kidney Stones - 2010 Denies: Hx Dialysis, Hx Renal Disease Musculoskeletal History: Reports: Hx Tendonitis - right hand- received cortisone injection over 1 year ago Denies: Hx Rheumatoid Arthritis, Hx Osteoporosis Sensory History: Denies: Hx Contacts or Glasses, Hx Hearing Aid Opthamlomology History: Denies: Hx Contacts or Glasses Neurological History: Reports: Hx Migraine - triggered by low magnesium in the past Psychiatric History: Reports: Hx Anxiety - no meds Denies: Hx Panic Disorder, Hx of Violent Episodes Against Others - Cancer History Hx Chemotherapy: No - Surgical History Surgery Procedure, Year, and Place: October 2010 - Kidney stone removed. tonsillectomy as a child. 2000 - repaired laceration to right hand. had spinal tap to r/o meningitis - had to have blood patch next day. CHOLECYSTECTOMY Hx Anesthesia Reactions: No - Immunization History Date of Tetanus Vaccine: 2011 Date of Influenza Vaccine: None Infectious Disease History: No Infectious Disease History: Denies: Hx Clostridium Difficile, Hx Hepatitis, Hx Human Immunodeficiency Virus (HIV), Hx of Known/Suspected MRSA, Hx Shingles, Hx Tuberculosis, Hx Known/ Suspected VRE, Hx Known/Suspected VRSA, History Other Infectious Disease, Traveled Outside the [place] in Last 30 Days - Family History Known Family History: Positive: Cardiac Disease - MOM AND DAD BOTH HAD 3V CABG IN THEIR 50s, Hypertension, Diabetes - brother, recent, Other - cancer - Social History Alcohol Use: Weekly Alcohol Amount: Few beers on the weekends Hx Substance Use: Yes Substance Use Type: Reports: Marijuana Substance Use Comment - Amount & Last Used: states socially-denies any other drug use Hx Tobacco Use: Yes - not currently Smoking Status (MU): Former Smoker Type: Cigarettes Amount Used/How Often: More than 1.5 pack per day Length of Time of Smoking/Using Tobacco: 27 years old Have You Smoked in the Last Year: No Review of Systems Negative: Fever, Chills Positive: Chest Pain Positive: Shortness Of Breath Positive: Headache All Other Systems Reviewed And Are Negative: Yes Physical Exam - Summary Physical Exam Summary: VITAL SIGNS: Reviewed. GENERAL: Patient is a well-developed and nourished male who is lying comfortable in the stretcher. Patient is not in any acute respiratory distress. HEAD AND FACE: No signs of trauma. No ecchymosis, hematomas or skull depressions. No sinus tenderness. EYES: PERRLA, EOMI x 2, No injected conjunctiva, no nystagmus. EARS: Hearing grossly intact. Ear canals and tympanic membranes are within normal limits. MOUTH: Oropharynx within normal limits. NECK: Supple, trachea is midline, no adenopathy, no JVD, no carotid bruit, no c- spine tenderness, neck with full ROM. CHEST: Symmetric, no tenderness at palpation. LUNGS: Clear to auscultation bilaterally. No wheezing or crackles. CVS: Regular rate and rhythm, S1 and S2 present, no murmurs or gallops appreciated. ABDOMEN: Soft, non-tender. No signs of distention. No rebound, no guarding, and no masses palpated. Bowel sounds are normal. EXTREMITIES: FROM in all major joints, no edema, no cyanosis or clubbing. NEURO: Alert and oriented x 3. No acute neurological deficits. Speech is normal and follows commands. SKIN: Dry and warm. Triage Information Reviewed: Yes Vital Signs On Initial Exam: Initial Vitals Temp Pulse Resp BP Pulse Ox 97.2 F 71 18 150/79 98 07/14/19 08:10 07/14/19 08:10 07/14/19 08:10 07/14/19 08:10 07/14/19 08:10 Vital Signs Reviewed: Yes Procedures - Sedation Patient Received Moderate/Deep Sedation with Procedure: No Diagnostics - Vital Signs Vital Signs Temp Pulse Resp BP Pulse Ox 07/14/19 08:10 97.2 F 71 18 150/79 98 - Laboratory Result Diagrams: 07/14/19 08:12 07/14/19 08:12 Lab Statement: Any lab studies that have been ordered have been reviewed, and results considered in the medical decision making process. - Radiology Chest XR Radiology Interpretation Completed By: Radiologist Summary of Radiographic Findings: IMPRESSION: No active cardiopulmonary disease is noted. Dr. French has reviewed this report. - EKG 08:05 Cardiac Rate: NL - at 70 bpm EKG Rhythm: Sinus Rhythm Summary of EKG Findings: EKG at 0805 shows normal sinus rhythm at a rate of [address] elevations. Re-Evaluation - Re-Evaluation First Eval Re-Evaluation Time: 12:12 Comment: Reviewed results with patient. He will be discharged home with follow up from his PCP. Chest Pain Course/Dx - Course Assessment/Plan: This pt is a 44 y/o male [facility] c/o midsternal chest pain for the past 1 week now. Pt reports he has been waking up every night for the past 1 week with sudden onset of chest pain. He describes chest pain as sharp and almost "like an anxiety feeling" in the center of his chest. Pt states he woke up 4 times last night. Additionally he states associated symptom of SOB, described as "trying to catch his breath." Pt notes these episodes of chest pain are quick. Pt also reports having migraine headache for the past few days. Pt reports ever since his shoulder surgery in May 2019 he has not felt comfortable. PMHx: HTN. Denies hx of cardiac disease. Patient did have a nuclear stress test in September 2018. Denies tobacco use, however reports marijuana use (last time was 2 weeks ago). Blood work without a significant abnormality. Two troponins 4 hours apart are both 0. Urinalysis is negative. Heart score is equal to 1. The patient continues to be asymptomatic. Therefore, the patient will be discharged home with follow-up from his primary care physician. Patient is hemodynamically stable, alert and oriented 3. - Chest Pain Differential Diagnosis/HQI/PQRI: Acute SC, ACS, Angina, CHF, Chest Wall, GI Disease, Lower Respiratory Infection - Diagnoses Provider Diagnoses: Chest pain Discharge ED - Sign-Out/Discharge Documenting (check all that apply): Patient Departure - Discharge home - Discharge Plan Condition: Stable Disposition: HOME Patient Education Materials: Chest Pain (ED) Referrals: David Holland NP [Primary Care Provider] - Additional Instructions: Follow up with your primary care provider in 2-3 days. RETURN TO THE ED FOR ANY WORSENING OR NEW SYMPTOMS. - Billing Disposition and Condition Condition: STABLE Disposition: Home - Attestation Statements Document Initiated by Scribe: Yes Documenting Scribe: Lily Horton Provider For Whom Scribe is Documenting (Include Credential): Jeremiah French MD Scribe Attestation: I, Lily Horton, scribed for Jeremiah French MD on 07/14/19 at 1838. Scribe Documentation Reviewed: Yes Provider Attestation: The documentation as recorded by the scribe, Lily Horton accurately reflects the service I personally performed and the decisions made by me, Jeremiah French MD Status of Scribe Document: Viewed
[2019-07-14 08:35] LABS: Activated Partial Thrombo Time 42.8 seconds (26.0-38.0); INR 0.98 (0.82-1.09)
[2019-07-14 08:46] LABS: Albumin 4.2 g/dL (3.2-5.2); Albumin/Globulin Ratio 1.6 (1-3); Calcium 9.3 mg/dL (8.6-10.3); EGFR African American 126.4 (>60); EGFR Non-African American 104.5 (>60); Globulin 2.7 g/dL (2-4); Potassium 3.7 mmol/L (3.5-5.0); Total Bilirubin 0.7 mg/dL (0.2-1.0); Total Protein 6.9 g/dL (6.4-8.9)
[2019-07-14 08:48] LABS: Urine Appearance Clear; Urine Bilirubin Negative (Negative); Urine Blood Negative (Negative); Urine Color Yellow; Urine Glucose Negative (Negative); Urine Ketones Negative (Negative); Urine Nitrite Negative (Negative); Urine Protein Negative (Negative); Urine Specific Gravity 1.006 (1.010-1.030); Urine Urobilinogen Negative (Negative)
[2019-07-14 08:48] LABS: Troponin I 0.01 ng/mL (<0.03)
--- OUTSIDE RECORDS SUMMARY | 2019-07-14 08:52 | XMS REPORT | Continuity of Care Document ---
:1975 External Reference #:[id number] Author Name Elton Allen MD (transmitted by agent of provider Eli Campbell) Address [address] [place] [address] Care Team Providers Name Role Phone Mary Steinberg MD - Internal Medicine Care Team Information Customer Solutions Coordinator [phone] Problems Active Problems Provider Date Lumbosacral spondylosis without Mayur Jamison M.D. Onset: 12/21/2014 myelopathy Disturbance in sleep behavior Ilana Dunn MD Onset: 12/09/2015 Obesity Ilana Dunn MD Onset: 12/09/2015 Asthma David Skyler, ROSSY Onset: 01/01/2017 Palpitations Jon Hernandez M.D., [facility], Onset: 10/01/2018 FASNC Shoulder joint unstable Elton Allen MD Onset: 02/17/2019 Strain of rotator cuff capsule Elton Allen MD Onset: 02/17/2019 Disorder of shoulder Elton Allen MD Onset: 04/21/2019 Unspecified dislocation of right Elton Allen MD Onset: 04/21/2019 shoulder joint, subsequent encounter Closed traumatic dislocation of Elton Allen MD Onset: 06/09/2019 joint of shoulder region Social History Type Date Description Comments Sex Unknown Tobacco Use Start: Unknown Quit 3 years ago. Used to smoke 1 and half pack per day since 15 years. ETOH Use Currently consumes 6 drinks/week alcohol Recreational Drug Use Current Drug User Marijuana Tobacco Use Start: Unknown End: Patient is a former Unknown smoker Recreational Drug Use Former Drug User Cocaine Smoking Status Reviewed: 07/09/19 Patient is a former smoker Exercise Type/Frequency Exercises rarely Allergies, Adverse Reactions, Alerts Active Allergies Reaction Severity Comments Date Bee Sting resp distress 08/25/2009 Shellfish-derived Products 02/25/2014 Inactive Allergies NKDA 09/23/2008 Medications Active Medications SIG Qnty Indications Ordering Date Provider Pantoprazole Sodium take 1 tab daily 90tabs David Holland NP 06/18/[address] Ibuprofen take 1 by mouth 60tabs Elton Allen MD 05/22/2019 800mg Tablets every 8 hours as needed for pain. take with food Epinephrine 1 injection as 1units David Holland NP 12/03/2018 0.3mg/0.3ML needed allergic Solution Auto-Inject reaction Atenolol Take 1 Tablet By 90tabs David Holland NP 10/01/2018 25mg Tablets Mouth Every Day Amlodipine Besylate Take 1/2 Tablet 30tabs David Holland NP 09/12/2018 5mg By Mouth Every Tablets Day Blood Pressure check bp twice 1units I10 David Holland NP 07/21/2018 Monitor Auto weekly at home Inflate Misc Fluticasone Wh[place] 2 Sprays 16units R51 David Holland NP 11/04/2017 Propionate Into Each Nostril 50mcg/Act One Time Daily as Suspension Needed Albuterol 2 puffs four 1units J45.20 David Holland NP 90mcg/Act times a day as Aerosol needed Multi For Him 1 by mouth every Unknown Capsules day Magnesium OTC 1 by mouth Unknown 250mg Tablets every day Vitamin B Complex 1 by mouth every Unknown day Tablets Benzonatate Unknown 100mg Capsules Doxycycline Hyclate 1 by mouth twice Unknown a day 100mg Capsules History Medications Percocet 1 tabs by mouth 18tabs Elton Allen, 05/22/2019 - 5-325mg Tablets every 4-6 hours 06/07/2019 as needed pain for post op pain. MDD 6 Benzonatate take one or two 30caps J06.9 Gabo Baxter MD 05/14/2019 - 100mg Capsules capsules every 8 06/15/2019 hours as needed for cough. Cyclobenzaprine HCL 1 by mouth at 7tabs R25.2 Mary Steinberg MD 01/29/2019 - 10mg night 05/14/2019 Tablets Medications Administered in Office Medication SIG Qnty Indications Ordering Provider Date Triamcinolone (Kenalog) Elton Allen MD 03/31/2019 Injection Depomedrol 40MG Patti Bitting, RPA-C 03/19/2018 Injection Depomedrol 40MG Patti Bitting, RPA-C 08/29/2017 Injection Immunizations Description No Information Available Vital Signs Date Vital Result Comment 07/09/2019 11:20am Height 72 inches 6'0" Weight 222.00 lb Heart Rate 58 /min BP Systolic 132 mmHg BP Diastolic 78 mmHg Respiratory Rate 18 /min Pain Level 3 BMI (Body Mass Index) 30.1 kg/m2 06/16/2019 10:31am Height 72 inches 6'0" Weight 230.00 lb Heart Rate 74 /min BP Systolic Sitting 121 mmHg BP Diastolic Sitting 78 mmHg Body Temperature 97.9 F O2 % BldC Oximetry 95 % BMI (Body Mass Index) 31.2 kg/m2 Results Test Acquired Date Facility Test Result H/L Range Note Laboratory test 05/20/2019 [facility] Rapid Strep Negative Negative 1 finding [address] [place] [address] [phone] Comp Metabolic 04/07/2019 [facility] Sodium 137 mmol/L Normal 135-145 Panel [address] [place] [address] [phone] Potassium 3.9 mmol/L Normal 3.5-5.0 Chloride 104 [...] Egfr Non- 107.6 >60 Egfr 130.1 >60 2 Laboratory test 04/07/2019 [facility] Magnesium 2.2 mg/dL Normal 1.9-2.[address] [place] [address] [phone] CRP High Sensitivity 0.45 mg/L <2.00 CBC Auto 04/07/2019 [facility] White Blood 8.6 10^3/uL Normal 3.5-10.[address] [place] [address] [phone] Red Blood Count 4.91 10^6/uL Normal 4.18-5.48 [...] Blood Cells % 0.0 Laboratory test 04/07/2019 [facility] Erythrocyte Sed 5 mm/Hr Normal 0-[address] [place] [address] [phone] 1 Video Conference Specialist: [id number] 2 Because ethnic data is not always [...] (or dialysis) Procedures Date Code Description Status 05/25/2019 24945 Tenodesis Biceps Long Tendon Completed 05/25/201908434 Tenodesis Biceps Long Tendon Completed 05/25/201954315 Tenodesis Biceps Long Tendon Completed 03/31/2019 83213 Inject/Drain Joint/Bursa Major W/O US Completed 02/11/2019 54612 Nerve Conduction 05-06 Studies Completed 02/11/2019 02922 Needle Electromyography Complete, Five Or More Muscles Completed Studied Medical Devices Description No Information Available Encounters Type Date Location Provider Dx Diagnosis Office Visit 06/16/2019 [facility] Internal Kandice Hurd, H92.01 Otalgia, right ear 10:20a Medicine - [facility] K21.9 Gastro-esophageal reflux disease without esophagitis Office Visit 05/14/2019 8:00a [facility] Internal Gabo Baxter MD J06.9 Acute upper Medicine - Suite respiratory R infection, unspecified R00.1 Bradycardia, unspecified Office Visit 04/21/2019 Florian Allen S43.004D Unspecified 3:30p Orthopedics at [facility] right shoulder joint, subs encntr M75.41 Impingement syndrome of right shoulder Office Visit 04/02/2019 4:00p [facility] Internal Mary Galvez Z00.00 Encntr for Medicine - Suite general adult R medical exam w/o abnormal findings I10 Essential (primary) hypertension J45.20 Mild intermittent asthma, uncomplicated R51 Headache Office Visit 03/31/2019 Florian Allen S43.004D Unspecified 8:15a Orthopedics at [facility] right shoulder joint, subs encntr M75.41 Impingement syndrome of right shoulder Office Visit 02/17/2019 [place] Elton Allen, M25.311 Other instability, 9:30a Orthopedics at right shoulder [place] S46.011D Strain of musc/tend the rotator cuff of right shoulder, subs M25.311 Other instability, right shoulder Office Visit 02/03/2019 1:45p [facility] Elton Allen, M25.511 Pain in right at [place] shoulder M25.311 Other instability, right shoulder S43.004A Unspecified dislocation of right shoulder joint, init encntr Office Visit 01/29/2019 11:00a [facility] Mary Steinberg MD R25.2 Cramp and Medicine - [facility] spasm Assessments Date Code Description Provider 07/09/2019 M75.41 Impingement syndrome of right shoulder Elton Allen MD 07/09/2019 S43.004D Unspecified dislocation of right shoulder Elton Allen MD joint, subsequent encounter 07/09/2019 M75.21 Bicipital tendinitis, right shoulder Elton Allen MD 06/16/2019 H92.01 Otalgia, right ear Kandice Hurd, N.P. 06/16/2019 K21.9 Gastro-esophageal reflux disease without Kandice Hurd, N.P. esophagitis 06/09/2019 M75.41 Impingement syndrome of right shoulder Elton Allen MD 06/09/2019 S43.004D Unspecified dislocation of right shoulder Elton Allen MD joint, subsequent encounter 06/09/2019 M75.21 Bicipital tendinitis, right shoulder Elton Allen MD 05/25/2019 M75.21 Bicipital tendinitis, right shoulder KANDACE Saenz 05/25/2019 S43.004A Unspecified dislocation of right shoulder Lynne Childress PA-C joint, initial encounter 05/25/2019 S43.004A Unspecified dislocation of right shoulder Elton Allen MD joint, initial encounter 05/25/2019 M75.41 Impingement syndrome of right shoulder Lynne Childress PA-C 05/25/2019 M75.41 Impingement syndrome of right shoulder Elton Allen MD 05/25/2019 M75.21 Bicipital tendinitis, right shoulder Elton Allen MD 05/22/2019 S43.004D Unspecified dislocation of right shoulder Lynne Childress PA-C joint, subsequent encounter 05/22/2019 M75.41 Impingement syndrome of right shoulder Lynne Childress PA-C 05/22/2019 M75.21 Bicipital tendinitis, right shoulder KANDACE Saenz 05/14/2019 J06.9 Acute upper respiratory infection, Gabo Baxter MD unspecified 05/14/2019 R00.1 Bradycardia, unspecified Gabo Baxter MD 04/21/2019 S43.004D Unspecified dislocation of right shoulder [...] R25.2 Cramp and spasm Mary Steinberg MD Plan of Treatment Future Appointment(s):08/13/2019 3:15 pm - Elton Allen MD at [facility] at [id number]/09/2019 - Elton Allen, MDM75.41 Impingement syndrome of right shoulderFollow up:Follow up: 4-5 mkijqX33.004D Unspecified dislocation of right shoulder joint, subsequent axdmjeosrL96.21 Bicipital tendinitis, right shoulder Functional Status Description No Information Available Mental Status Description No Information Available Referrals Refer to Reason for Referral Status Appt Date Cristofer Hunt MD Constant irritation of his Received Partial 2019 throat, right ear and sinuses for over 1 1/2 months. Referred for evaluation and treatment. Thank yo for seeing this pleasant patient. [address] [place] [address] [phone] Aaliyah Lamas MD Patient with persistent GERD symptoms despite being Sent 07/23/2018 on PPI. Referred for evaluation. Thank you [address] [place] [address] [phone]
--- OUTSIDE RECORDS SUMMARY | 2019-07-14 08:52 | XMS REPORT | Continuity of Care Document ---
:1975 External Reference #:[id number] Author Name Elton Allen MD (transmitted by agent of provider Cassie Lerma) Address [address] [facility] [place] [address] Care Team Providers Name Role Phone Mary Steinberg MD - Internal Medicine Care Team Information Boiler Erector Problems Active Problems Provider Date Lumbosacral spondylosis without Mayur Jamison M.D. Onset: 12/21/2014 myelopathy Disturbance in sleep behavior Ilana Dunn MD Onset: 12/09/2015 Obesity Ilana Dunn MD Onset: 12/09/2015 Asthma David ROSSY Holland Onset: 01/01/2017 Palpitations Jon Hernandez M.D., [facility], Onset: 10/01/2018 FASNC Shoulder joint unstable Elton [...] Ibuprofen take 1 by mouth 60tabs Elton Aleln MD 05/22/2019 800mg Tablets every 8 hours [...] Auto weekly at home Inflate Misc Fluticasone [place] 2 Sprays 16units R51 David Holland NP [...] Result H/L Range Note Laboratory test 05/20/2019 [facility] Rapid Strep Negative Negative 1 finding [address] [place] [address] [phone] Comp Metabolic 04/07/2019 [facility] Sodium 137 mmol/L Normal 135-145 Panel [address] [place] [address] [phone] Potassium 3.9 mmol/L Normal 3.5-5.0 Chloride 104 [...] Egfr 130.1 >60 2 Laboratory test 04/07/2019 [facility] Magnesium 2.2 mg/dL Normal 1.9-2.[address] [place] [address] [phone] CRP High Sensitivity 0.45 mg/L <2.00 CBC Auto 04/07/2019 [facility] White Blood 8.6 10^3/uL Normal 3.5-10.[address] [place] [address] [phone] Red Blood Count 4.91 10^6/uL Normal 4.18-5.48 [...] Blood Cells % 0.0 Laboratory test 04/07/2019 [facility] Erythrocyte Sed 5 mm/Hr Normal 0-[address] [place] [address] [phone] 1 Project Coordinator: [id number] 2 Because ethnic data is not always [...] dialysis) Procedures Date Code Description Status 05/25/2019 90937 Tenodesis Biceps Long Tendon Completed 05/25/201992063 Tenodesis Biceps Long Tendon Completed 05/25/201924024 Tenodesis Biceps Long Tendon Completed 03/31/2019 02016 Inject/Drain Joint/Bursa Major W/O US Completed 02/11/2019 36024 Nerve Conduction 05-06 Studies Completed 02/11/2019 16566 Needle Electromyography Complete, Five Or More Muscles Completed Studied Medical Devices Description No Information Available Encounters Type Date Location Provider Dx Diagnosis Office Visit 06/16/2019 [facility] Internal Kandice Hurd H92.01 Otalgia, right ear 10:20a Medicine - [facility] K21.9 Gastro-esophageal reflux disease without esophagitis Office Visit 05/14/2019 8:00a [facility] Internal Gabo Baxter MD J06.9 Acute upper Medicine - Suite respiratory R infection, unspecified R00.1 Bradycardia, unspecified Office Visit 04/21/2019 Florian Allen S43.004D Unspecified 3:30p Orthopedics at [facility] right shoulder joint, subs encntr M75.41 Impingement syndrome of right shoulder Office Visit 04/02/2019 4:00p [facility] Internal Mary Galvez Z00.00 Encntr for Medicine - Suite general adult R medical exam w/o abnormal findings I10 Essential (primary) hypertension J45.20 Mild intermittent asthma, uncomplicated R51 Headache Office Visit 03/31/2019 Florian Allen S43.004D Unspecified 8:15a Orthopedics at [facility] right shoulder joint, subs encntr M75.41 Impingement syndrome of right shoulder Office Visit 02/17/2019 [place] Elton Allen, M25.311 Other instability, 9:30a Orthopedics at right shoulder [place] S46.011D Strain of musc/tend the rotator cuff of right shoulder, subs M25.311 Other instability, right shoulder Office Visit 02/03/2019 1:45p [facility] Elton Allen, M25.511 Pain in right at [place] shoulder M25.311 Other instability, right shoulder S43.004A Unspecified dislocation of right shoulder joint, init encntr Office Visit 01/29/2019 11:00a [facility] Mary Steinberg MD R25.2 Cramp and [...] 05/14/2019 J06.9 Acute upper respiratory infection, Gabo Batxer MD unspecified 05/14/2019 R00.1 Bradycardia, unspecified Gabo [...] 3:15 pm - Elton Allen MD at [facility] at Zsmejn6607/09/2019 - Elton Allen, MDM75.41 Impingement syndrome of right shoulderFollow up:Follow up: 4-5 pdncxD38.004D Unspecified dislocation of right shoulder joint, subsequent qmwetdpguT51.21 Bicipital tendinitis, right shoulder Functional Status Description No Information Available Mental Status Description No Information Available Referrals Refer to Dr Reason for Referral Status Appt Date Cristofer Hunt MD Constant irritation of his Received Partial 2019 throat, right ear and sinuses for over 1 1/2 months. Referred for evaluation and treatment. Thank yo for seeing this pleasant patient. [address] [place] [address] [phone] Aaliyah Lamas MD Patient with persistent GERD symptoms despite being Sent 07/23/2018 on PPI. Referred for evaluation. Thank you [address] [place] [address] [phone]
--- OUTSIDE RECORDS SUMMARY | 2019-07-14 08:52 | XMS REPORT | Continuity of Care Document ---
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 Onset: 12/21/2014 myelopathy Disturbance in sleep behavior Ilana Dunn MD Onset: 12/09/2015 Obesity Ilana Dunn MD Onset: 12/09/2015 Asthma David Skyler, LEGAL ANALYST Onset: 01/01/2017 Palpitations Jon Hernandez M.D., [facility], Onset: 10/01/2018 FASNC Shoulder joint [...] Former Drug User Cocaine Smoking Status Reviewed: 05/22/19 Patient is a former smoker Exercise Type/Frequency Exercises rarely Allergies, Adverse Reactions, Alerts Active Allergies Reaction Severity Comments Date Bee Sting resp distress 08/25/2009 Shellfish-derived Products 02/25/2014 Inactive Allergies NKDA 09/23/2008 Medications Active Medications SIG Qnty Indications Ordering Date Provider Benzonatate take one or two 30caps J06.9 Gabo Baxter MD 05/14/2019 100mg capsules every 8 Capsules hours as needed for cough. Epinephrine 1 injection as 1units David Holland NP 12/03/2018 0.3mg/0.3ML needed allergic Solution Auto-Inject reaction Atenolol 1 by mouth every 90tabs David Holland NP 10/01/2018 25mg Tablets day Amlodipine Besylate Take 1 Tablet By 30tabs David Holland NP 09/12/2018 5mg Mouth Every Day Tablets Blood Pressure check bp twice 1units I10 David Holland NP 07/21/2018 Monitor Auto weekly at home Inflate Misc Fluticasone [place] 2 Sprays 16units R51 David Holland NP 11/04/2017 Propionate Into Each Nostril 50mcg/Act One Time Daily as Suspension Needed Ventolin HFA 2 puffs by mouth 1units David Holland NP 03/29/2017 four times a day 108(90Base) mcg/Act as needed Aerosol Albuterol 2 puffs four 1units J45.20 David Holland NP 90mcg/Act times a day as Aerosol needed Multi For Him 1 by mouth every Unknown Capsules day Magnesium OTC 1 by mouth Unknown 250mg Tablets every day Vitamin B Complex 1 by mouth every Unknown day Tablets Fexofenadine HCL 1 by mouth every Unknown 180mg day Tablets Pantoprazole Sodium Paul, Robin Canas MD 40mg Tablets DR History Medications Cyclobenzaprine HCL 1 by mouth at 7tabs R25.2 Mary Steinberg, 01/29/2019 - 10mg night 05/14/2019 Tablets Benzonatate take one or two 30caps J06.9 David Holland NP 12/24/2018 - 100mg Capsules capsules every 8 12/31/2018 hours as needed for cough. Azithromycin 2 tabs by mouth 6tabs J45.20 David Holland NP 12/24/2018 - 250mg Tablets every day x1 12/30/2018 day, 1 tab by mouth every day x 4 days Medications Administered in Office Medication SIG Qnty Indications Ordering Provider Date Triamcinolone (Kenalog) Elton Allen MD 03/31/2019 Injection Depomedrol 40MG Patti Bitting, JAELYN-C 03/19/2018 Injection Depomedrol 40MG Patti Bitting, [facility] 08/29/2017 Injection Immunizations Description No Information Available Vital Signs Date Vital Result Comment 05/22/2019 9:22am Height 72 inches 6'0" Weight 223.00 lb Heart Rate 57 /min BP Systolic 126 mmHg BP Diastolic 71 mmHg Body Temperature 98.2 F Pain Level 3 BMI (Body Mass Index) 30.2 kg/m2 05/14/2019 8:01am Height 72 inches 6'0" Weight 223.00 lb Heart Rate 44 /min BP Systolic 125 mmHg BP Diastolic 80 mmHg Body Temperature 98.7 F O2 % BldC Oximetry 97 % BMI (Body Mass Index) 30.2 kg/m2 Results Test Acquired Date Facility Test Result H/L Range Note Laboratory test 05/20/2019 [facility] Rapid Strep Negative Negative 1 finding [address] [facility] [place] [address] [phone] Comp Metabolic 04/07/2019 [facility] Sodium 137 mmol/L Normal 135-145 Panel [address] [place] [address] [phone] Potassium 3.9 mmol/L Normal 3.5-5.0 Chloride 104 [...] Egfr 130.1 >60 2 Laboratory test 04/07/2019 [facility] Magnesium 2.2 mg/dL Normal 1.9-2.[address] [place] [address] [phone] CRP High Sensitivity 0.45 mg/L <2.00 CBC Auto 04/07/2019 [facility] White Blood 8.6 10^3/uL Normal 3.5-10.[address] [place] [address] [phone] Red Blood Count 4.91 10^6/uL Normal 4.18-5.48 [...] Blood Cells % 0.0 Laboratory test 04/07/2019 [facility] Erythrocyte Sed 5 mm/Hr Normal 0-[address] [place] [address] [phone] Laboratory test 12/24/2018 [employer] In House Influenza A/B negative A&B finding Rapid 1 Retail Business Development Manager: [id number] 2 Because ethnic data is not always [...] dialysis) Procedures Date Code Description Status 03/31/2019 94454 Inject/Drain Joint/Bursa Major W/O US Completed 02/11/2019 10229 Nerve Conduction 05-06 Studies Completed 02/11/2019 51958 Needle Electromyography Complete, Five Or More Muscles Completed Studied Medical Devices Description No Information Available Encounters Type Date Location Provider Dx Diagnosis Office Visit 04/21/2019 Florian Allen S43.004D Unspecified 3:30p at [employer] dislocation of right shoulder joint, subs encntr M75.41 Impingement syndrome of right shoulder Office Visit 04/02/2019 4:00p [facility] [employer] Internal Mary Galvez, Z00.00 Encntr for Medicine - Suite MD general adult R medical exam w/o abnormal findings I10 Essential (primary) hypertension J45.20 Mild intermittent asthma, uncomplicated R51 Headache Office Visit 03/31/2019 Florian Allen S43.004D Unspecified 8:15a Orthopedics at dislocation of [employer] right shoulder joint, subs encntr M75.41 Impingement syndrome of right shoulder Office Visit 02/17/2019 Florian Allen M25.311 Other instability, 9:30a Orthopedics at right shoulder [employer] S46.011D Strain of musc/tend the rotator cuff of right shoulder, subs M25.311 Other instability, right shoulder Office Visit 02/03/2019 1:45p Florian Allen M25.511 Pain in right at [employer] shoulder M25.311 Other instability, right shoulder S43.004A Unspecified dislocation of right shoulder joint, init encntr Office Visit 01/29/2019 11:00a [facility] Mary Idris, R25.2 Cramp and spasm Medicine - [facility] Office Visit 12/24/2018 1:40p [facility] Internal David Holland LEGAL ANALYST R50.9 Fever, unspecified Medicine - [facility] R53.81 Other malaise R05 Cough J45.20 Mild intermittent asthma, uncomplicated J06.9 Acute upper respiratory infection, unspecified Assessments Date Code Description Provider 05/22/2019 S43.004D Unspecified dislocation of right shoulder Lynne Childress PA-C joint, subsequent encounter 05/22/2019 M75.41 Impingement syndrome of right shoulder Lynne Childress PA-C 05/14/2019 J06.9 Acute upper respiratory infection, Gabo [...] MD 12/24/2018 R50.9 Fever, unspecified David Skyler, LEGAL ANALYST 12/24/2018 R53.81 Other malaise David Skyler, LEGAL ANALYST 12/24/2018 R05 Cough David Skyler, LEGAL ANALYST 12/24/2018 J45.20 Mild intermittent asthma, uncomplicated David Skyler, LEGAL ANALYST 12/24/2018 J06.9 Acute upper respiratory infection, David Skyler, LEGAL ANALYST unspecified Plan of Treatment Future Appointment(s):06/09/2019 1:00 pm - Elton Allen MD at [facility] at Yckqbd4305/25/2019 11:15 am - Lynne Childress PA-C at [facility] at Uinxpn4505/25/2019 11:15 am - Elton Allen MD at [facility] at Kqnalx7105/22/2019 - KANDACE Saenz-CS43.004D Unspecified dislocation of right shoulder joint, subsequent encounterFollow up:Follow up: 10-14 days post opM75.41 Impingement syndrome of right shoulder Functional Status Description No Information Available Mental Status Description No Information Available Referrals Description No Information Available
--- OUTSIDE RECORDS SUMMARY | 2019-07-14 08:52 | XMS REPORT | Continuity of Care Document ---
:1975 External Reference #:[id number] Author Name Kandice Hurd N.P. 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 Onset: 12/21/2014 myelopathy Disturbance in sleep behavior Ilana Dunn MD Onset: 12/09/2015 Obesity Ilana Dunn MD Onset: 12/09/2015 Asthma David Holland NP Onset: 01/01/2017 Palpitations Jon Hernandez M.D., [facility], Onset: 10/01/2018 FASNC Shoulder joint unstable Elton Allen MD Onset: 02/17/2019 Strain of rotator cuff capsule Elton Allen MD Onset: 02/17/2019 Closed traumatic dislocation of Elton Allen MD Onset: 06/09/2019 joint of shoulder region Unspecified dislocation of right Elton Allen MD [...] Former Drug User Cocaine Smoking Status Reviewed: 06/16/19 Patient is a former smoker Exercise Type/Frequency Exercises rarely Allergies, Adverse Reactions, Alerts Active Allergies Reaction Severity Comments Date Bee Sting resp distress 08/25/2009 Shellfish-derived Products 02/25/2014 Inactive Allergies NKDA 09/23/2008 Medications Active Medications SIG Qnty Indications Ordering Date Provider Ibuprofen take 1 by mouth 60tabs Elton [...] Auto weekly at home Inflate Misc Fluticasone [place] 2 Sprays 16units R51 David Holland NP [...] 1 by mouth every Unknown day Tablets Pantoprazole Sodium Paul, Robin Canas MD 40mg Tablets DR History Medications Percocet 1 tabs by mouth [...] MD 01/29/2019 - 10mg night 05/14/2019 Tablets Benzonatate [...] Allen MD 03/31/2019 Injection Depomedrol 40MG Patti Espinosa RPA-C 03/19/2018 Injection Depomedrol 40MG Patti Espinosa, [facility] 08/29/2017 Injection Immunizations Description No Information Available Vital Signs Date Vital Result Comment 06/16/2019 10:31am Height 72 inches 6'0" Weight 230.00 lb Heart Rate 74 /min BP Systolic Sitting 121 mmHg BP Diastolic Sitting 78 mmHg Body Temperature 97.9 F O2 % BldC Oximetry 95 % BMI (Body Mass Index) 31.2 kg/m2 06/09/2019 1:01pm Height 72 inches 6'0" Weight 222.00 lb Heart Rate 60 /min BP Systolic 144 mmHg BP Diastolic 86 mmHg Respiratory Rate 17 /min Body Temperature 97.6 F Pain Level 4 BMI (Body Mass Index) 30.1 kg/m2 Results Test Acquired Date Facility Test Result H/L Range Note Laboratory test 05/20/2019 [facility] Rapid Strep Negative Negative 1 finding [address] [place] [address] [phone] Comp Metabolic 04/07/2019 [facility] Sodium 137 mmol/L Normal 135-145 Panel [address] [place] [address] [phone] Potassium 3.9 mmol/L Normal 3.5-5.0 Chloride 104 [...] Egfr 130.1 >60 2 Laboratory test 04/07/2019 [facility] Magnesium 2.2 mg/dL Normal 1.9-2.[address] [place] [address] [phone] CRP High Sensitivity 0.45 mg/L <2.00 CBC Auto 04/07/2019 [facility] White Blood 8.6 10^3/uL Normal 3.5-10.[address] [place] [address] [phone] Red Blood Count 4.91 10^6/uL Normal 4.18-5.48 [...] Blood Cells % 0.0 Laboratory test 04/07/2019 [facility] Erythrocyte Sed 5 mm/Hr Normal 0-[address] [place] [address] [phone] Laboratory test 12/24/2018 [employer] Influenza A/B negative A&B finding Rapid 1 Nylon Machine Operator: [id number] 2 Because ethnic data is not always [...] dialysis) Procedures Date Code Description Status 05/25/2019 97875 Tenodesis Biceps Long Tendon Completed 05/25/2019 74407 Tenodesis Biceps Long Tendon Completed 05/25/2019 43540 Tenodesis Biceps Long Tendon Completed 03/31/2019 24006 Inject/Drain Joint/Bursa Major W/O US Completed 02/11/2019 37392 Nerve Conduction 05-06 Studies Completed 02/11/2019 37283 Needle Electromyography Complete, Five Or More Muscles Completed Studied Medical Devices Description No Information Available Encounters Type Date Location Provider Dx Diagnosis Office Visit 05/14/2019 [facility] Internal Gabo Baxter MD J06.9 Acute upper 8:00a Medicine - Suite R respiratory infection, unspecified R00.1 Bradycardia, unspecified Office Visit 04/21/2019 Florian Allen S43.004D Unspecified 3:30p Orthopedics at dislocation [facility] right shoulder joint, subs encntr M75.41 Impingement syndrome of right shoulder Office Visit 04/02/2019 4:00p [facility] Internal Mary Galvez Z00.00 Encntr for Medicine - Suite general adult R medical exam w/o abnormal findings I10 Essential (primary) hypertension J45.20 Mild intermittent asthma, uncomplicated R51 Headache Office Visit 03/31/2019 Florian Allen S43.004D Unspecified 8:15a Orthopedics at dislocation of [place] right shoulder joint, subs encntr M75.41 Impingement syndrome of right shoulder Office Visit 02/17/2019 [place], M25.311 Other instability, 9:30a [place] right [place] S46.011D Strain of musc/tend the rotator cuff of right shoulder, subs M25.311 Other instability, right shoulder Office Visit 02/03/2019 1:45p [facility] Elton Allen M25.511 Pain in right at [place] shoulder M25.311 Other instability, right shoulder S43.004A Unspecified dislocation of right shoulder joint, init encntr Office Visit 01/29/2019 11:00a [facility] Internal Mary Idris, R25.2 [facility] 12/24/2018 1:40p [facility] Internal David Skyler, PROTECTIVE SIGNAL REPAIRER R50.9 Fever, [facility] R[facility].81 Other malaise R05 Cough J45.20 Mild intermittent asthma, uncomplicated J06.9 Acute upper respiratory infection, unspecified Assessments Date Code Description Provider 06/16/2019 H92.01 Otalgia, right ear Kandice Hurd, N.P. 06/16/2019 K21.9 Gastro-esophageal reflux disease without Kandice Hurd, N.P. esophagitis 06/09/2019 M75.41 Impingement syndrome of right shoulder Elton Allen MD 06/09/2019 S43.004A Unspecified dislocation of right shoulder Elton Allen MD joint, initial encounter 06/09/2019 M75.21 Bicipital tendinitis, right shoulder [...] 05/22/2019 M75.41 Impingement syndrome of right shoulder ARVIN SaenzC 05/22/2019 M75.21 Bicipital tendinitis, right shoulder KANDACE [...] MD 12/24/2018 R50.9 Fever, unspecified David Skyler, PROTECTIVE SIGNAL REPAIRER 12/24/2018 R53.81 Other malaise David Skyler, PROTECTIVE SIGNAL REPAIRER 12/24/2018 R05 Cough David Skyler, PROTECTIVE SIGNAL REPAIRER 12/24/2018 J45.20 Mild intermittent asthma, uncomplicated David Skyler, PROTECTIVE SIGNAL REPAIRER 12/24/2018 J06.9 Acute upper respiratory infection, David Skyler, PROTECTIVE SIGNAL REPAIRER unspecified Plan of Treatment Future Appointment(s):07/02/2019 8:15 am - Elton Allen MD at [facility] at Nwwbrf1906/16/2019 - Kandice Hurd N.YesseniaH92.01 Otalgia, right earComments:You have eustachian tube dysfunction. You need to start using your Fluticasone nasal spray, 2 inhalations in each nostril at night. If your symptoms do not gradually improve, please contact the office.K21.9 Gastro- esophageal reflux disease without esophagitisComments:For your esophageal reflux : Continue with your current management. I advise you to avoid food triggers. These include: Spicy, greasy, and acidic foods, along with coffee and alcohol. If your stomach issues do not improve, please contact the office, you may need a referral to a GI specialist. Functional Status Description No Information Available Mental Status Description No Information Available Referrals Description No Information Available
[2019-07-14 12:39] VITALS: BP 134/80
== END 2019-07-14 12:47 | disposition home or self-care (01) ==
LOC: ED 08:03
DX: R07.89 Other chest pain (principal); R06.02 Shortness of breath; R51 Headache; I10 Essential (primary) hypertension; J45.909 Unspecified asthma, uncomplicated; K21.9 Gastro-esophageal reflux disease without esophagitis; Z91.030 Bee allergy status; Z91.013 Allergy to seafood; Z82.49 Family history of ischemic heart disease and other diseases of the circulatory system; Z83.3 Family history of diabetes mellitus; Z80.9 Family history of malignant neoplasm, unspecified; Z87.891 Personal history of nicotine dependence
CPT/HCPCS: 36415; 71045; 80053; 81003; 83880; 84484; 85025; 85610; 85730; 93005; 99284; A9270-GY

== ENCOUNTER 2019-09-11 18:19 | Emergency (ER) | payer OTHER ==
--- OUTSIDE RECORDS SUMMARY | 2019-09-11 18:38 | XMS REPORT | Summary of Care ---
:1975 Author Organization [facility] Address [address] [address] Care Team Providers Name Role Phone David Holland [employer]ENT Primary Care Provider Reason for Visit Reason Comments New Patient gerd, feeling better Encounter Details Date Type Department Care Team Description 08/11/2019 Office Visit Aaliyah Haynes MD Gastroesophageal reflux Gastroenterology/Hep [address] disease[place] [address] presence not specified [address] [phone] (Primary Dx) [place] [address] [phone] Allergies Active Allergy Reactions Severity Noted Date Comments Bee Anaphylaxis 08/01/2011 Does not have epi pen Shellfish Allergy GI Reaction 02/07/2017 documented as of this encounter (statuses as of 08/12/2019) Medications Medication Sig Dispensed Refills Start Date End Date Status albuterol (PROVENTIL, 2.5 mg by 0 Active VENTOLIN) (2.5 MG/3ML) Inhalation-SVN 0.083% Inhalation Nebu route TWICE DAILY. Soln atenolol (TENORMIN) 50 Take 25 mg by 0 Active MG Oral Tab mouth DAILY. EPINEPHrine 0.3 by Injection 0 Active MG/0.3ML Injection route. Solution Auto-injector Fluticasone Furoate [place] in nose. 0 Active 27.5 MCG/SPRAY Nasal Suspension ipratropium (ATROVENT) [place] 2 Sprays in 0 Active 0.06 % Nasal Solution nose TWICE DAILY. Dextromethorphan-Guaif Take by mouth. 0 Active enesin (MUCINEX DM MAXIMUM STRENGTH) 60-1200 MG Oral TABLET SR 12 HR pantoprazole Take 1 Tab by 30 Tab 0 05/21/2017 Active (PROTONIX) 40 MG Oral mouth DAILY 0700 Tab EC on Empty Stomach. ibuprofen (MOTRIN) 800 Take 800 mg by 0 Active MG Oral Tab mouth EVERY EIGHT HOURS NEEDED. amLodipine (NORVASC) 5 Take 5 mg by mouth 0 Active MG Oral Tab DAILY. Take 1/4 tablet by mouth every day Magnesium 250 MG Oral Take by mouth. 0 Active Tab documented as of this encounter (statuses as of 08/12/2019) Active Problems Problem Noted Date Anxiety 06/19/2019 Depression 06/19/2019 Personal history of alcoholism 06/19/2019 Lyme disease 06/19/2016 Nicotine dependence 06/19/2016 Bradycardia 06/19/2016 Internal hemorrhoids 06/19/2016 Asthma 06/19/2016 GERD (gastroesophageal reflux disease) 06/19/2016 Steatosis of liver 06/19/2016 Gallstones 06/19/2016 Backache 06/19/2016 Palpitations 06/19/2016 History of colitis 06/19/2016 History of colonic polyps 06/19/2016 Chest pain 06/19/2016 Fracture of foot 06/19/2016 Disposition to allergy in upper respiratory tract 06/19/2016 HTN (hypertension) 08/01/2011 documented as of this encounter (statuses as of 08/12/2019) Social History Tobacco Use Types Packs/Day Years Used Date Former Smoker Cigarettes 0.5 Quit: 2016 Smokeless Tobacco: Never Used Alcohol Use Drinks/Week oz/Week Comments Yes 0.0 3beers 1-2x/week Sex Assigned at Date Recorded Not on file Job Start Date Occupation Industry Not on file Not on file Not on file Travel History Travel Start Travel End No recent travel history available. documented as of this encounter Last Filed Vital Signs Vital Sign Reading Time Taken Comments Blood Pressure 143/79 08/11/2019 3:47 PM EST Pulse 54 08/11/2019 3:47 PM EST Temperature - - Respiratory Rate - - Oxygen Saturation 99% 08/11/2019 3:47 PM EST Inhaled Oxygen Concentration - - Weight 110.2 kg (243 lb) 08/11/2019 3:47 PM EST Height 182.9 cm (6') 08/11/2019 3:47 PM EST Body Mass Index 32.96 08/11/2019 3:47 PM EST documented in this encounter Patient Instructions Patient InstructionsAaliyah Lamas MD - 08/11/2019 3:40 PM EST1. Continue the pantoprazole for now. 2. If you get to a point where you want to decrease the pantoprazole: start by taking it every otherday for 2-4 weeks before stopping it. And when you're going to have a celebration or drink/eat something that may bother you, take a pantoprazole or over the counter pepcid as needed. 3. If symptoms return or get worse again, let me know and we can always schedule an endoscopy to look. Aaliyah Lamas MD documented in this encounter Progress Notes Aaliyah Lamas MD - 08/11/2019 3:40 PM EST PATIENT: Jordy Beltran : 1975 DATE OF SERVICE: 08/11/2019 REFERRING PRACTITIONER: Kandice Hurd PRIMARY CARE PROVIDER: David Holland CHIEF COMPLAINT: Chief Complaint Patient presents with New Patient gerd, feeling better Subjective HISTORY OF PRESENT ILLNESS: Jordy Beltran is a 44-y.o. male who presents for follow-up of GERD. He reports that he had been doing well until he stopped his pantoprazole a while back and started falling back into bad eating habits. He had a few drinks with his friends, and that night, had terrible heartburn and discomfort. He hadan episode of vomiting with small amount of blood. He restarted his pantoprazole, and for the past several weeks, is back to normal. He denies dysphagia, fatigue, nausea, vomiting, melena, hematochezia, constipation, diarrhea, jaundice, fevers, chills, night sweats, weight loss, easy bruising, chest pain, shortness of breath, dysuria, hematuria, pyuria, joint pains, acholic stools, dark urine or systemic pruritis. Current Outpatient Medications Medication Sig albuterol (PROVENTIL, VENTOLIN) (2.5 MG/3ML) 0.083% Inhalation Nebu Soln 2.5 mg by Inhalation-SVN route TWICE DAILY. amLodipine (NORVASC) 5 MG Oral Tab Take 5 mg by mouth DAILY. Take 1/4 tablet by mouth every day atenolol (TENORMIN) 50 MG Oral Tab Take 25 mg by mouth DAILY. Dextromethorphan-Guaifenesin (MUCINEX DM MAXIMUM STRENGTH) 60-1200 MG Oral TABLET SR 12 HR Take by mouth. EPINEPHrine 0.3 MG/0.3ML Injection Solution Auto-injector by Injection route. Fluticasone Furoate 27.5 MCG/SPRAY Nasal Suspension [place] in nose. ibuprofen (MOTRIN) 800 MG Oral Tab Take 800 mg by mouth EVERY EIGHT HOURS NEEDED. ipratropium (ATROVENT) 0.06 % Nasal Solution [place] 2 Sprays in nose TWICE DAILY. Magnesium 250 MG Oral Tab Take by mouth. pantoprazole (PROTONIX) 40 MG Oral Tab EC Take 1 Tab by mouth DAILY 0700 on Empty Stomach. No current facility-administered medications for this visit. Allergies Allergen Reactions Bee Anaphylaxis Does not have epi pen Shellfish Allergy GI Reaction REVIEW OF SYSTEMS: All remaining review of systems was negative except for as noted in the history of present illness/subjective. Objective PHYSICAL EXAMINATION: VITALS: BP (!) 143/79 (BP Location: Left arm, Patient Position: Sitting) | Pulse 54 | Ht 6' (1.829 m) | Wt 243 lb (110.2 kg) | SpO2 99% | BMI 32.96 kg/ m Body mass index is 32.96 kg/m. GENERAL: alert, oriented, no acute distress. HEENT: No scleral icterus, MMM Psych: Affect normal Neck: no lymphadenopathy LUNGS: clear to auscultation bilaterally. HEART: regular rhythm, no murmurs, no gallops, no rubs. ABDOMEN: general exam: soft, non-tender, non-distended, without masses or organomegaly, normal active bowel sounds, Medina's sign negative. Extrmities: no edema Skin: clear Neuro: gait normal, a&o x 3 RECTAL: exam deferred. IMPRESSION: GERD, possible esophagitis, improved on pantoprazole Plan PLAN: 1. Continue pantoprazole for now 2. I counseled patient that if he has any further worsening of symptoms or hematemesis, we can do endoscopy to evaluate Follow up: Schedule follow-up here as needed if symptoms worsen. Author: Aaliyah Lamas MD 08/12/2019 15:31 documented in this encounter Plan of Treatment Health Maintenance Due Date Last Done Comments PNEUMOCOCCAL 0-64 YRS (1 of 1 - 1983 PPSV23) DTaP/Tdap/Td Vaccines (1 - Tdap) 1988 DEPRESSION SCREENING 1989 HIV SCREENING 1992 DIABETES SCREENING 1995 LIPID DISORDER SCREENING 1995 INFLUENZA VACCINE (#1) 2019 HEPATITIS A IMMUNIZATION SERIES Aged Out No longer eligible based on patient's age to complete this topic HPV IMMUNIZATION SERIES Aged Out No longer eligible based on patient's age to complete this topic MENINGOCOCCAL VACCINE IMM Aged Out No longer eligible based on patient's age to complete this topic documented as of this encounter Results Not on filedocumented in this encounter Visit Diagnoses Diagnosis Gastroesophageal reflux disease, esophagitis presence not specified documented in this encounter (Home) [place] [employer] [phone] [place], [place] (Work) [address] documented as of this encounter"
--- OUTSIDE RECORDS SUMMARY | 2019-09-11 18:38 | XMS REPORT | Continuity of Care Document ---
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 Onset: 12/21/2014 myelopathy Disturbance in sleep behavior Ilana Dunn MD Onset: 12/09/2015 Obesity Ilana Dunn MD Onset: 12/09/2015 Asthma David Skyler, XRAY TECH Onset: 01/01/2017 Palpitations Jon Hernandez M.D., [facility], Onset: 10/01/2018 FASNC Shoulder joint unstable [...] Former Drug User Cocaine Smoking Status Reviewed: 09/07/19 Patient is a former smoker Exercise Type/Frequency [...] 25mg Tablets Mouth Every Day Amlodipine Besylate not taking- 30tabs David Holland NP 09/12/2018 5mg taper off per pt Tablets Take 1/2 Tablet By Mouth Every Day Blood Pressure check bp twice 1units I10 David Holland NP 07/21/2018 Monitor Auto weekly at home Inflate Misc Fluticasone [place] 2 Sprays 16units R51 David Holland NP [...] Percocet 1 tabs by mouth 18tabs Elton Allen MD 05/22/2019 - 5-325mg every 4-6 hours 06/07/2019 Tablets as needed pain for post op pain. MDD 6 Benzonatate take one or two 30caps J06.9 Gabo Baxter MD 05/14/2019 - 100mg capsules every 8 06/15/2019 Capsules hours as needed for cough. Medications Administered in Office Medication SIG Qnty Indications Ordering Provider Date Triamcinolone (Kenalog) Elton Allen MD 03/31/2019 Injection Depomedrol 40MG Patti Espinosa, JAELYN-C 03/19/2018 Injection Depomedrol 40MG Patti Bitting, JAELYN-C 08/29/2017 Injection Immunizations Description No Information Available Vital Signs Date Vital Result Comment 09/07/2019 7:26am Height 72 inches 6'0" Weight 242.00 lb Heart Rate 53 /min BP Systolic Sitting 138 mmHg BP Diastolic Sitting 88 mmHg O2 % BldC Oximetry 97 % BMI (Body Mass Index) 32.8 kg/m2 Neck Circumference in inches 18.25 07/09/2019 11:20am Height 72 inches 6'0" Weight 222.00 lb Heart Rate 58 /min BP Systolic 132 mmHg BP Diastolic 78 mmHg Respiratory Rate 18 /min Pain Level 3 BMI (Body Mass Index) 30.1 kg/m2 Results Test Acquired Date Facility Test Result H/L Range Note Laboratory test 07/14/2019 [facility] Troponin-I 0.00 ng/mL < 0.[address] (TnI) [place] [address] [phone] Urinalysis Profile 07/14/2019 [facility] Urine Color Yellow [address] [place] [address] [phone] Urine Appearance Clear Urine Specific [place] 1.006 Low 1.010-1.030 Urine pH 6.0 Normal 5-9 Urine Urobilinogen Negative Negative Urine Ketones Negative Negative Urine Protein Negative Negative Urine Leukocytes Negative Negative Urine Blood Negative Negative Urine Nitrite Negative Negative Urine Bilirubin Negative Negative Urine Glucose Negative Negative Laboratory 07/14/2019 [facility] B-Type 10 pg/mL <=100 test finding [address] [place] [address] Peptide BNP [phone] CBC Auto Diff 07/14/2019 [facility] White Blood 5.1 Normal 3.5 -10.[address] Count 10^3/uL [place], [place] [id number] [phone] Red Blood Count 4.56 10^6/uL Normal 4.18-5.48 Hemoglobin 13.8 g/dL Low 14.0-18.0 Hematocrit 40 % Low 42-52 Mean Corpuscular Volume 87 fL Normal 80-94 Mean Corpuscular Hemoglobin 30 pg Normal 27-31 Mean Corpuscular HGB Conc 35 g/dL Normal 31-36 Red Cell Distribution Width 13 % Normal 10-15 Platelet Count 196 10^3/uL Normal 150-450 Mean Platelet Volume 7.5 fL Normal 7.4-10.4 Abs Neutrophils 2.2 10^3/uL Normal 1.5-7.7 Abs Lymphocytes 2.3 10^3/uL Normal 1.0-4.8 Abs Monocytes 0.6 10^3/uL Normal 0-0.8 Abs Eosinophils 0.0 10^3/uL Normal 0-0.6 Abs Basophils 0.0 10^3/uL Normal 0-0.2 Abs Nucleated RBC 0.0 10^3/uL Granulocyte % 42.7 % Lymphocyte % 44.4 % Monocyte % 11.4 % Eosinophil % 1.0 % Basophil % 0.5 % Nucleated Red Blood Cells % 0.5 Inr/Protime 07/14/2019 [facility] Inr 0.98 Normal 0.82-1.09 [address] [place] [address] [phone] Laboratory test 07/14/2019 [facility] Partial 42.8 High 26.0- 38.0 finding [address] [facility] [place] [address] Time PTT [phone] Comp Metabolic 07/14/2019 [facility] Sodium 139 mmol/L Normal 135-145 Panel [address] [place], [place] [id number] [phone] Potassium 3.7 mmol/L Normal 3.5-5.0 Chloride 104 mmol/L Normal 101-111 Co2 Carbon Dioxide 29 mmol/L Normal 22-32 Anion Gap 6 mmol/L Normal 2-11 Glucose 111 mg/dL High 70-100 Blood Urea Nitrogen 13 mg/dL Normal 6-24 Creatinine 0.81 mg/dL Normal 0.67-1.17 BUN/Creatinine Ratio 16.0 Normal 8-20 Calcium 9.3 mg/dL Normal 8.6-10.3 Total Protein 6.9 g/dL Normal 6.4-8.9 Albumin 4.2 g/dL Normal 3.2-5.2 Globulin 2.7 g/dL Normal 2-4 Albumin/Globulin Ratio 1.6 Normal 1-3 Total Bilirubin 0.70 mg/dL Normal 0.2-1.0 Alkaline Phosphatase 66 U/L Normal 34-104 Alt 33 U/L Normal 7-52 Ast 24 U/L Normal 13-39 Egfr Non- 104.5 >60 Egfr 126.4 >60 3 Laboratory 07/14/2019 [facility] Troponin-I 0.01 ng/mL <0.[address] (TnI) [place] [address] [phone] Laboratory 05/20/2019 [facility] Rapid Strep Negative Negative 5 test finding [address] [place] [address] [phone] Comp Metabolic 04/07/2019 [facility] Sodium 137 mmol/L Normal 135-[address] [place] [address] [phone] Potassium 3.9 mmol/L Normal 3.5-5.0 Chloride 104 [...] Egfr Non- 107.6 >60 Egfr 130.1 >60 6 Laboratory test 04/07/2019 [facility] Magnesium 2.2 mg/dL Normal 1.9-2.[address] [place] [address] [phone] CRP High Sensitivity 0.45 mg/L <2.00 CBC Auto 04/07/2019 [facility] White Blood 8.6 10^3/uL Normal 3.5-10.8 Diff [address] [place] [address] [phone] Red Blood Count 4.91 10^6/uL Normal 4.18-5.48 [...] Blood Cells % 0.0 Laboratory test 04/07/2019 [facility] Erythrocyte Sed 5 mm/Hr Normal 0-[address] [place] [address] [phone] 1 Troponin-I testing on Plasma Separator Tubes (PST) has a known false positive rate of 0.20-0.40%. All positive troponins reflex immediately to secondary confirmatory testing. Using the [employer]I 800 Access Immunoassay systems, the 99th percentile upper reference limit was demonstrated to be < 0.03 ng/mL. 2 Standard intensity warfarin therapeutic range: 2.0-3.0 High intensity warfarin therapeutic range: 2.5-3.5 3 Because ethnic data is not always readily [...] 15-29 5 Kidney failure <15 (or dialysis) 4 Troponin-I testing on Plasma Separator Tubes (PST) has a known false positive rate of 0.20-0.40%. All positive troponins reflex immediately to secondary confirmatory testing. Using the [employer]I 800 Access Immunoassay systems, the 99th percentile upper reference limit was demonstrated to be < 0.03 ng/mL. 5 Child Support Agent: [id number] 6 Because ethnic data is not always readily [...] dialysis) Procedures Date Code Description Status 05/25/2019 91598 Tenodesis Biceps Long Tendon Completed 05/25/2019 20611 Tenodesis Biceps Long Tendon Completed 05/25/2019 81822 Tenodesis Biceps Long Tendon Completed 03/31/2019 38352 Inject/Drain Joint/Bursa Major W/O US Completed Medical Devices Description No Information Available Encounters Type Date Location Provider Dx Diagnosis Office Visit 06/16/2019 [facility] Kandice Hurd H92.01 Otalgia, right ear 10:20a Medicine - [facility] K21.9 Gastro-esophageal reflux disease without esophagitis Office Visit 05/14/2019 8:00a [facility] Gabo Baxter MD J06.9 Acute upper Medicine - Suite respiratory R infection, unspecified R00.1 Bradycardia, unspecified Office Visit 04/21/2019 [facility] Elton Allen, S43.004D Unspecified 3:30p Orthopedics at dislocation of [place] right shoulder joint, subs encntr M75.41 Impingement syndrome of right shoulder Office Visit 04/02/2019 4:00p [facility] Mary Galvez, Z00.00 Encntr for Medicine - Suite MD general adult R medical exam w/o abnormal findings I10 Essential (primary) hypertension J45.20 Mild intermittent asthma, uncomplicated R51 Headache Office Visit 03/31/2019 [facility] Elton Allen, S43.004D Unspecified 8:15a Orthopedics at dislocation of [place] right shoulder joint, subs encntr M75.41 Impingement syndrome of right shoulder Assessments Date Code Description Provider 09/07/2019 R06.83 Snoring Ilana Dunn MD 09/07/2019 R53.83 Other fatigue Ilana Dunn MD 07/09/2019 M75.41 Impingement syndrome of right shoulder [...] MD 05/25/2019 M75.21 Bicipital tendinitis, right shoulder Etlon Allen MD 05/22/2019 S43.004D Unspecified dislocation of [...] syndrome of right shoulder Elton Allen MD Plan of Treatment Future Appointment(s):10/07/2019 8:00 am - Cassie Ivan NP at [facility]09/17/2019 8:00 am - Chris Flores MD at [facility] at [id number]/07/2019 - Ilana Dunn, MDR06.83 SnoringNew Orders:Home Sleep Testing, Ordered: 09/07/19Follow up:2 ejiaaB41.83 Other fatigue Functional Status Description No Information Available Mental Status Description No Information Available Referrals Refer to Reason for Referral Status Appt Date [facility] Sent 09/07/2019 [address] [place] [address] [phone] Cristofer Hunt MD Constant irritation of his Received Partial 2019 throat, right ear and sinuses for over 1 1/2 months. Referred for evaluation and treatment. Thank yo for seeing this pleasant patient. [address] [place] [address] [phone] Aaliyah Lamas MD Patient with persistent GERD symptoms despite Closed 07/23 being on PPI. Referred for evaluation. Thank you [address] [place] [address] [phone]
[2019-09-11] MEDS ORDERED: diPHENhydraMINE PO* 50 MG PO ONE (22:01)
[2019-09-11] MEDS ORDERED: Ketorolac INJ* 30 MG/ML 1 ML VIAL IM ONE (22:01)
--- NOTE | 2019-09-11 22:04 | ED ---
Headache - HPI Summary HPI Summary: 44-year-old male with a significant past medical history of hypertension presents to the emergency department today complaining of a 4 out of 10 headache. Patient states this was a gradual onset and feels like one of his typical headaches. Patient says this is not the worse headache of his life and he has no family history of brain bleeds. Patient has no neurological deficits at this time. Patient states his eyes began to burn earlier with a headache however he believes this is due to him having been eating jalapeno chips and then touching his eyes. Patient states he had 2 beers prior to arrival in the emergency department. Patient is otherwise well and denies changes in vision, changes in speech, nausea, vomiting, diarrhea, chest pain, shortness of breath. - History Of Current Complaint Chief Complaint: EDHeadache Stated Complaint: CHEST PAIN /HEADACHE PER PT Time Seen by Provider: 09/11/19 21:52 Hx Obtained From: Patient Onset/Duration: Gradual Onset Initially Headache Was: Severe Currently Pain Is: Mild Timing: Constant Character: Typical Headache Location of Headache: Frontal - Allergies/Home Medications Allergies/Adverse Reactions: Allergies Allergy/AdvReac Type Severity Reaction Status Date / Time bee venom protein (honey bee) Allergy Severe Anaphylatic Verified 09/11/19 18:36 Shock shellfish derived Allergy Severe GI Upset Verified 09/11/19 18:36 Home Medications: Home Medications Multivitamins/Minerals TAB* [Theragran/minerals TAB*] 1 tab PO QAM 09/10/17 [ History Confirmed 07/14/19] Magnesium Oxide [Magnesium] 250 mg PO QAM 07/18/18 [History Confirmed 07/14/19] Vitamin B Complex TAB* [B Complex-50*] 1 tab PO QAM 07/18/18 [History Confirmed 07/14/19] Atenolol TAB* [Tenormin TAB* 25 MG] 25 mg PO QAM 02/02/19 [History Confirmed 01/24] Pantoprazole TAB * [Protonix TAB*] 40 mg PO DAILY 05/21/19 [History Confirmed ] Amlodipine 2.5 mg TAB (NF) 2.5 mg PO DAILY 07/14/19 [History Confirmed 07/14/19] DOXYcycline CAP(*) [DOXYcycline 100MG CAP(*)] 100 mg PO BID 07/14/19 [History Confirmed 07/14/19] PMH/Surg Hx/FS Hx/Imm Hx Endocrine/Hematology History: Denies: Hx Anticoagulant Therapy, Hx Blood Disorders, Hx Diabetes, Hx Thyroid Disease Cardiovascular History: Reports: Hx Hypertension - on atenolol Denies: Hx Angina, Hx Congestive Heart Failure, Hx Coronary Artery Disease, Hx Myocardial Infarction, Hx Pacemaker/ICD, Hx Valvular Heart Disease Respiratory History: Reports: Hx Asthma - INHALER NEEDED (well controlled), Other Respiratory Problems/Disorders - POOR RESPIRATORY TEST 4 yrs ago + skin TB test - had (-) serial CXR's tx'd Denies: Hx Chronic Obstructive Pulmonary Disease (COPD) GI History: Reports: Hx Gastroesophageal Reflux Disease - on med Denies: Hx Ulcer History: Reports: Hx Kidney Stones - 2010 Denies: Hx Dialysis, Hx Renal Disease Musculoskeletal History: Reports: Hx Tendonitis - right hand- received cortisone injection over 1 year ago Denies: Hx Rheumatoid Arthritis, Hx Osteoporosis Sensory History: Denies: Hx Contacts or Glasses, Hx Hearing Aid Opthamlomology History: Denies: Hx Contacts or Glasses Neurological History: Reports: Hx Migraine - triggered by low magnesium in the past Psychiatric History: Reports: Hx Anxiety - no meds Denies: Hx Panic Disorder, Hx of Violent Episodes Against Others - Cancer History Hx Chemotherapy: No - Surgical History Surgery Procedure, Year, and Place: October 2010 - Kidney stone removed. tonsillectomy as a child. 2000 - repaired laceration to right hand. had spinal tap to r/o meningitis - had to have blood patch next day. CHOLECYSTECTOMY Hx Anesthesia Reactions: No - Immunization History Date of Tetanus Vaccine: 2011 Date of Influenza Vaccine: None Immunizations Up to Date: Yes Infectious Disease History: No Infectious Disease History: Denies: Hx Clostridium Difficile, Hx Hepatitis, Hx Human Immunodeficiency Virus (HIV), Hx of Known/Suspected MRSA, Hx Shingles, Hx Tuberculosis, Hx Known/ Suspected VRE, Hx Known/Suspected VRSA, History Other Infectious Disease, Traveled Outside the [place] in Last 30 Days - Family History Known Family History: Positive: Cardiac Disease - MOM AND DAD BOTH HAD 3V CABG IN THEIR 50s, Hypertension, Diabetes - brother, recent, Other - cancer - Social History Alcohol Use: Weekly Alcohol Amount: Few beers on the weekends Hx Substance Use: Yes Substance Use Type: Reports: Marijuana Substance Use Comment - Amount & Last Used: states socially-denies any other drug use Hx Tobacco Use: Yes - not currently Smoking Status (MU): Former Smoker Type: Cigarettes Amount Used/How Often: More than 1.5 pack per day Length of Time of Smoking/Using Tobacco: 27 years old Have You Smoked in the Last Year: No Review of Systems Constitutional: Negative Eyes: Negative ENT: Negative Cardiovascular: Negative Respiratory: Negative Gastrointestinal: Negative Genitourinary: Negative Musculoskeletal: Negative Skin: Negative Positive: Headache Psychological: Normal All Other Systems Reviewed And Are Negative: Yes Physical Exam Triage Information Reviewed: Yes Vital Signs On Initial Exam: Initial Vitals Temp Pulse Resp BP Pulse Ox 98.6 F 60 16 159/98 98 09/11/19 18:34 09/11/19 18:34 09/11/19 18:34 09/11/19 18:34 09/11/19 18:34 Vital Signs Reviewed: Yes Appearance: Positive: Well-Appearing, No Pain Distress, Well-Nourished Eyes: Positive: EOMI, JAIME ENT: Positive: Hearing grossly normal Neck: Positive: Nontender. Negative: Nuchal Rigidity Respiratory/Lung Sounds: Positive: Clear to Auscultation, Breath Sounds Present Cardiovascular: Positive: RRR, S1, S2 Abdomen Description: Positive: Nontender, Soft Bowel Sounds: Positive: Present Musculoskeletal: Positive: Strength/ROM Intact Neurological: Positive: Sensory/Motor Intact, Alert, Oriented to Person Place, Time, Normal Gait, Facial Symmetry, Speech Normal Psychiatric: Positive: Normal, Affect/Mood Appropriate AVPU Assessment: Alert Procedures - Sedation Patient Received Moderate/Deep Sedation with Procedure: No Diagnostics - Vital Signs Vital Signs Temp Pulse Resp BP Pulse Ox 09/11/19 21:22 99.5 F 58 18 138/81 97 09/11/19 18:34 98.6 F 60 16 159/98 98 - Laboratory Lab Statement: Any lab studies that have been ordered have been reviewed, and results considered in the medical decision making process. Headache Course/Dx - Course Course Of Treatment: Patient was evaluated in the emergency department today for headache. Patient seen and examined. Patient had no nuchal rigidity with a negative Kernig and Brudzinski test. No evidence of meningitis. Patient afebrile. Patient has no neurological deficits or evidence for subarachnoid hemorrhage. Patient given Toradol and Benadryl in the emergency department which significantly improved his headache. Patient discharged with outpatient follow-up and told to take Tylenol and Benadryl as needed for his headache. - Diagnoses Differential Diagnosis/HQI/PQRI: Subdural Hematoma, Migraine, Subarachnoid Hemorrhage, Tension Headache, Viral Syndrome Provider Diagnoses: Headache Discharge ED - Sign-Out/Discharge Documenting (check all that apply): Patient Departure - Discharge Plan Condition: Stable Disposition: HOME Patient Education Materials: Acute Headache (ED) Referrals: David Holland NP [Primary Care Provider] - 3 Days Additional Instructions: Please follow up with your primary care provider in 2-3 days for further evaluation and management. Please return to this emergency department immediately if you develop any new or worsening symptoms. Please continue to take Tylenol and Benadryl as needed for headache. - Billing Disposition and Condition Condition: STABLE Disposition: Home
[2019-09-11 23:43] VITALS: BP 132/81
== END 2019-09-11 23:42 | disposition home or self-care (01) ==
LOC: ED 18:19
DX: R07.9 Chest pain, unspecified (principal); R51 Headache; Z87.442 Personal history of urinary calculi; F41.9 Anxiety disorder, unspecified; Z79.899 Other long term (current) drug therapy; Z87.891 Personal history of nicotine dependence
CPT/HCPCS: 93005; 96372; 99282; A9270-GY; J1885

== ENCOUNTER 2019-10-20 06:03 | Emergency (ER) | payer OTHER ==
[2019-10-20 06:26] LABS: ABS Eosinophils 0.2 10^3/ul (0-0.6); ABS Lymphocytes 2.4 10^3/ul (1.0-4.8); ABS Monocytes 0.6 10^3/ul (0-0.8); ABS Neutrophils 2.5 10^3/ul (1.5-7.7); Hematocrit 42 % (42-52); Hemoglobin 14.8 g/dL (14.0-18.0); Lymphocyte % 42.4 %; Mean Corpuscular HGB Conc 35 g/dL (31-36); Mean Corpuscular Hemoglobin 29 pg (27-31); Mean Corpuscular Volume 83 fL (80-94); Nucleated Red Blood Cells % 0.1; Platelet Count 174 10^3/uL (150-450); Red Cell Distribution Width 13 % (10-15); White Blood Count 5.6 10^3/uL (3.5-10.8)
[2019-10-20 06:34] LABS: INR 1.01 (0.82-1.09)
--- OUTSIDE RECORDS SUMMARY | 2019-10-20 06:36 | XMS REPORT | Continuity of Care Document ---
:1975 External Reference #:[id number] Author Name Chris Flores MD (transmitted by agent of provider Lynne Childress) Address [address] [place] [address] Care Team Providers Name Role Phone Mary Steinberg MD - Internal Medicine Care Team Information Engineering Technician [phone] [facility] [place] - Care Team Information Engineering Technician Physical Therapist Problems Active Problems Provider Date Lumbosacral spondylosis without Mayurpartha Jamison M.D. Onset: 12/21/2014 myelopathy Disturbance in sleep behavior Ilana Dunn MD Onset: 12/09/2015 Obesity Ilana Dunn MD Onset: 12/09/2015 Asthma David Holland NP Onset: 01/01/2017 Palpitations Jon Hernandez M.D., [facility], Onset: 10/01/2018 [facility] Shoulder joint unstable Elton [...] Former Drug User Cocaine Smoking Status Reviewed: 09/17/19 Patient is a former smoker Exercise Type/Frequency [...] NP 10/01/2018 25mg Tablets Mouth Every Day Blood Pressure check bp twice 1units I10 David Holland NP 07/21/2018 Monitor Auto weekly at home Inflate Misc Fluticasone [place] 2 Sprays 16units R51 David Holland NP [...] 1 by mouth every Unknown day Tablets Turmeric Unknown History Medications Percocet 1 tabs by mouth [...] STACY Pastrana 03/19/2018 Injection Depomedrol 40MG Patti Espinosa [facility] 08/29/2017 Injection Immunizations Description No Information Available Vital Signs Date Vital Result Comment 09/17/2019 8:15am Height 72 inches 6'0" Weight 240.00 lb Heart Rate 70 /min BP Systolic 132 mmHg BP Diastolic 70 mmHg Body Temperature 97.7 F BMI (Body Mass Index) 32.5 kg/m2 09/07/2019 7:26am Height 72 inches 6'0" Weight 242.00 lb Heart Rate 53 /min BP Systolic Sitting 138 mmHg BP Diastolic Sitting 88 mmHg O2 % BldC Oximetry 97 % BMI (Body Mass Index) 32.8 kg/m2 Neck Circumference in inches 18.25 Results Test Acquired Date Facility Test Result H/L Range Note Laboratory test 07/14/2019 [facility] Troponin-I 0.00 ng/mL < 0.[address] (TnI) [place] [address] [phone] Urinalysis Profile 07/14/2019 [facility] Urine Color Yellow [address] [place] [address] [phone] Urine Appearance Clear Urine Specific [place] 1.006 Low 1.010-1.030 Urine pH 6.0 Normal 5-9 Urine Urobilinogen Negative Negative Urine Ketones Negative Negative Urine Protein Negative Negative Urine Leukocytes Negative Negative Urine Blood Negative Negative Urine Nitrite Negative Negative Urine Bilirubin Negative Negative Urine Glucose Negative Negative Laboratory 07/14/2019 [facility] B-Type 10 pg/mL <=[address] [place] [address] Peptide BNP [phone] CBC Auto Diff 07/14/2019 [facility] White Blood 5.1 Normal 3.5 -10.[address] Count 10^3/[place] [address] [phone] Red Blood Count 4.56 10^6/uL Normal 4.18-5.48 [...] Red Blood Cells % 0.5 Inr/Protime 07/14/2019 [facility] Inr 0.98 Normal 0.82-1.09 [address] [place] [address] [phone] Laboratory test 07/14/2019 [facility] Partial 42.8 High 26.0- 38.0 finding [address] [facility] [place] [address] Time PTT [phone] Comp Metabolic 07/14/2019 [facility] Sodium 139 mmol/L Normal 135-145 Panel [address] [place] [address] [phone] Potassium 3.7 mmol/L Normal 3.5-5.0 Chloride 104 [...] >60 Egfr 126.4 >60 3 Laboratory 07/14/2019 [facility] Troponin-I 0.01 ng/mL <0.03 4 test finding (TnI) [place] [address] [phone] Laboratory 05/20/2019 [facility] Rapid Strep Negative Negative 5 [place] [address] [phone] Comp Metabolic 04/07/2019 [facility] Sodium 137 mmol/L Normal 135-145 [place] [address] [phone] Potassium 3.9 mmol/L Normal 3.5-5.0 Chloride 104 [...] Egfr 130.1 >60 6 Laboratory test 04/07/2019 [facility] Magnesium 2.2 mg/dL Normal 1.9-2.7 [place] [address] [phone] CRP High Sensitivity 0.45 mg/L <2.00 CBC Auto 04/07/2019 [facility] White Blood 8.6 10^3/uL Normal 3.5-10.8 [place] [address] [phone] Red Blood Count 4.91 10^6/uL Normal 4.18-5.48 [...] Blood Cells % 0.0 Laboratory test 04/07/2019 [facility] Erythrocyte Sed 5 mm/Hr Normal 0-[address] [place] [address] [phone] 1 Troponin-I testing on Plasma Separator Tubes (PST) has a known false positive rate of 0.20-0.40%. All positive troponins reflex immediately to secondary confirmatory testing. Using the OpenText DxI 800 Access Immunoassay systems, the 99th [...] immediately to secondary confirmatory testing. Using the OpenText DxI 800 Access Immunoassay systems, the 99th percentile upper reference limit was demonstrated to be < 0.03 ng/mL. 5 Environmental Sustainability Manager: [id number] Because ethnic data is not always [...] dialysis) Procedures Date Code Description Status 05/25/2019 74756 Tenodesis Biceps Long Tendon Completed 05/25/2019 53616 Tenodesis Biceps Long Tendon Completed 05/25/2019 87992 Tenodesis Biceps Long Tendon Completed 03/31/2019 43558 Inject/Drain Joint/Bursa Major W/O US Completed Medical Devices Description No Information Available Encounters Type Date Location Provider Dx Diagnosis Office Visit 09/17/2019 [facility] Chris Kruse M75.41 Impingement 8:00a at Vineet Flores MD syndrome of right shoulder S43.004D Unspecified dislocation of right shoulder joint, subs encntr M75.21 Bicipital tendinitis, right shoulder Office Visit 09/07/2019 8:00a [facility] Ilana Dunn, R06.83 [facility] R53.83 Other fatigue Office Visit 06/16/2019 10:20a [facility] Kandice Hurd, H92.01 Otalgia , right Medicine - [facility] N.P. ear K21.9 Gastro-esophageal reflux disease without esophagitis Office Visit 05/14/2019 8:00a [facility] Gabo Baxter MD J06.9 Acute upper Medicine - Suite respiratory R infection, unspecified R00.1 Bradycardia, unspecified Office Visit 04/21/2019 [facility] Elton Allen, S43.004D Unspecified 3:30p Orthopedics at [facility] of [place] right shoulder joint, subs encntr M75.41 Impingement syndrome of right shoulder Office Visit 04/02/2019 4:00p [facility] Mary Galvez, Z00.00 Encntr for Medicine - Suite general adult R medical exam w/o abnormal findings I10 Essential (primary) hypertension J45.20 Mild intermittent asthma, uncomplicated R51 Headache Office Visit 03/31/2019 [facility] Elton Allen, S43.004D Unspecified 8:15a Orthopedics at [facility] [place] right shoulder joint, subs encntr M75.41 Impingement syndrome of right shoulder Assessments Date Code Description Provider 09/17/2019 M75.41 Impingement syndrome of right shoulder Chris Flores MD 09/17/2019 S43.004D Unspecified dislocation of right shoulder Chris Flores MD joint, subsequent encounter 09/17/2019 M75.21 Bicipital tendinitis, right shoulder Chris Flores MD 09/07/2019 R06.83 Snoring Ilana Dunn MD 09/07/2019 R53.83 Other fatigue Ilana Dunn MD 07/09/2019 M75.41 Impingement syndrome of right shoulder Elton Allen MD 07/09/2019 S43.004D Unspecified dislocation of right shoulder Elton Allen MD joint, subsequent encounter 07/09/2019 M75.21 Bicipital tendinitis, right shoulder Elton Allen MD 06/16/2019 H92.01 Otalgia, right ear Kandice Hurd, N.P. 06/16/2019 K21.9 Gastro-esophageal reflux disease without Kandice Vannessa, N.P. esophagitis 06/09/2019 M75.41 Impingement syndrome of right shoulder Elton Allen MD 06/09/2019 S43.004D Unspecified dislocation of right shoulder Elton Allen MD joint, subsequent encounter 06/09/2019 M75.21 Bicipital tendinitis, right shoulder Elton Allen MD 05/25/2019 M75.21 Bicipital tendinitis, right shoulder Lynne Childress PA -C 05/25/2019 S43.004A Unspecified dislocation of right shoulder ARVIN SaenzC joint, initial encounter 05/25/2019 S43.004A Unspecified dislocation [...] M75.41 Impingement syndrome of right shoulder Lynne Childress, PA-C 05/22/2019 M75.21 Bicipital tendinitis, right shoulder Lynne Childress PA -C 05/14/2019 J06.9 Acute upper respiratory infection, Gabo [...] Future Appointment(s):10/07/2019 8:00 am - Cassie Ivan HELP DESK SPECIALIST at [facility]09/17/2019 - Chris Kruse Mark, MDM75.41 Impingement syndrome of right shoulderFollow up:Follow up: after MRIS43.004D Unspecified dislocation of right shoulder joint, subsequent otoadobvlZ52.21 Bicipital tendinitis, right shoulder Functional Status Description No Information Available Mental Status Description No Information Available Referrals Refer to Reason for Referral Status Appt Date [facility] Sent 09/07/2019 [address] [place] [id number] [phone] Cristofer Hunt MD Constant irritation of his Received Partial 2019 throat, right ear and sinuses for over 1 1/2 months. Referred for evaluation and treatment. Thank yo for seeing this pleasant patient. [address] [place] [address] [phone] Aaliyah Lamas MD Patient with persistent GERD symptoms despite Closed 07/23 being on PPI. Referred for evaluation. Thank you [address] [place] [address] [phone]
--- OUTSIDE RECORDS SUMMARY | 2019-10-20 06:36 | XMS REPORT | Continuity of Care Document ---
:1975 External Reference #:[id number] Author Name Chris Flores MD (transmitted by agent of provider Kimber Lackey) Address [address] [place] [address] Care Team Providers Name Role Phone Mary Steinberg MD - Internal Medicine Care Team Information Juice Tester [phone] [facility] [place] Physical [facility] AT [place] - Care Team Information Juice Tester Physical Therapist Problems Active Problems Provider Date Lumbosacral spondylosis without Mayurpartha Jamison M.D. Onset: 12/21/2014 myelopathy Disturbance in sleep behavior Ilana Dunn MD Onset: 12/09/2015 Obesity Ilana Dunn MD Onset: 12/09/2015 Asthma David Holland NP Onset: 01/01/2017 Palpitations Jon Hernandez M.D., [facility], Onset: 10/01/2018 [facility] Shoulder joint unstable Elton [...] Auto weekly at home Inflate Misc Fluticasone Holland 2 Sprays 16units R51 David Holland NP 11/04/2017 Propionate Into Each Nostril 50mcg/Act One Time Daily as Suspension Needed Albuterol 2 puffs four 1units J45.20 Dvaid Holland NP 90mcg/Act times a day as Aerosol needed Multi For Him 1 by mouth every Unknown Capsules day Magnesium OTC 1 by mouth Unknown 250mg Tablets every day Vitamin B Complex 1 by mouth every Unknown day Tablets Turmeric Unknown Amlodipine Besylate Take 1 Tablet By Unknown 5mg Mouth Every Day Tablets History Medications Percocet 1 tabs by mouth [...] Allen MD 03/31/2019 Injection Depomedrol 40MG Patti Jesús, RPA-C 03/19/2018 Injection Depomedrol 40MG Patti Bitting, [facility] 08/29/2017 Injection Immunizations Description No Information Available Vital Signs Date Vital Result Comment 09/17/2019 4:31pm Height 72 inches 6'0" Weight 244.00 lb Heart Rate 58 /min BP Systolic 141 mmHg BP Diastolic 81 mmHg Body Temperature 97.9 F O2 % BldC Oximetry 97 % BMI (Body Mass Index) 33.1 kg/m2 09/17/2019 8:15am Height 72 inches 6'0" Weight 240.00 lb Heart Rate 70 /min BP Systolic 132 mmHg BP Diastolic 70 mmHg Body Temperature 97.7 F BMI (Body Mass Index) 32.5 kg/m2 Results Test Acquired Date Facility Test Result H/L Range Note Laboratory test 07/14/2019 [facility] Troponin-I 0.00 ng/mL < 0.[address] (TnI) [place] [address] [phone] Urinalysis Profile 07/14/2019 [facility] Urine Color Yellow [address] [place] [address] [phone] Urine Appearance Clear Urine Specific [place] 1.006 Low 1.010-1.030 Urine pH 6.0 Normal 5-9 Urine Urobilinogen Negative Negative Urine Ketones Negative Negative Urine Protein Negative Negative Urine Leukocytes Negative Negative Urine Blood Negative Negative Urine Nitrite Negative Negative Urine Bilirubin Negative Negative Urine Glucose Negative Negative Laboratory 07/14/2019 [facility] B-Type 10 pg/mL <=[address] [place] [address] Peptide BNP [phone] CBC Auto Diff 07/14/2019 [facility] White Blood 5.1 Normal 3.5 -10.[address] Count 10^3/uL [place], [place] [address] [phone] Red Blood Count 4.56 10^6/uL Normal 4.18-5.48 [...] Red Blood Cells % 0.5 Inr/Protime 07/14/2019 [facility] Inr 0.98 Normal 0.82-1.09 2 [address] [place] [address] [phone] Laboratory test 07/14/2019 [facility] Partial 42.8 High 26.0- 38.0 finding 101 [facility] [place] [address] Time PTT [phone] Comp Metabolic 07/14/2019 [facility] Sodium 139 mmol/L Normal 135-[address] [place] [address] [phone] Potassium 3.7 mmol/L Normal 3.5-5.0 Chloride 104 [...] >60 Egfr 126.4 >60 3 Laboratory 07/14/2019 [facility] Troponin-I 0.01 ng/mL <0.03 4 test finding [address] (TnI) [place] [address] [phone] Laboratory 05/20/2019 [facility] Rapid Strep Negative Negative 5 [place] [address] [phone] Comp Metabolic 04/07/2019 [facility] Sodium 137 mmol/L Normal 135-145 [place] [address] [phone] Potassium 3.9 mmol/L Normal 3.5-5.0 Chloride 104 [...] Egfr 130.1 >60 6 Laboratory test 04/07/2019 [facility] Magnesium 2.2 mg/dL Normal 1.9-2.7 [place] [address] [phone] CRP High Sensitivity 0.45 mg/L <2.00 CBC Auto 04/07/2019 [facility] White Blood 8.6 10^3/uL Normal 3.5-10.8 Diff [address] [place] [address] [phone] Red Blood Count 4.91 10^6/uL Normal 4.18-5.48 [...] Blood Cells % 0.0 Laboratory test 04/07/2019 [facility] Erythrocyte Sed 5 mm/Hr Normal 0-[address] [place] [address] [phone] 1 Troponin-I testing on Plasma Separator Tubes (PST) has a known false positive rate of 0.20-0.40%. All positive troponins reflex immediately to secondary confirmatory testing. Using the [employer] DxI 800 Access Immunoassay systems, the 99th [...] immediately to secondary confirmatory testing. Using the [employer] DxI 800 Access Immunoassay systems, the 99th percentile upper reference limit was demonstrated to be < 0.03 ng/mL. 5 Energy Conservation Technician: [id number] Because ethnic data is not always [...] dialysis) Procedures Date Code Description Status 05/25/2019 76822 Tenodesis Biceps Long Tendon Completed 05/25/2019 34745 Tenodesis Biceps Long Tendon Completed 05/25/2019 14840 Tenodesis Biceps Long Tendon Completed 03/31/2019 32437 Inject/Drain Joint/Bursa Major W/O US Completed Medical Devices Description No Information Available Encounters Type Date Location Provider Dx Diagnosis Office Visit 09/17/2019 Systems Support [facility] Internal David Holland NP R53.83 Other fatigue 4:00p Medicine - [facility] K21.9 Gastro-esophageal reflux disease without esophagitis I10 Essential (primary) hypertension R51 Headache Office Visit 09/17/2019 8:00a Florian Kruse M75.41 Impingement Orthoped[facility] at [facility] syndrome of right [place] shoulder S43.004D Unspecified dislocation of right shoulder joint, subs encntr M75.21 Bicipital tendinitis, right shoulder Office Visit 09/07/2019 8:00a Pulmonology [facility] Sleep Ilana Dunn, R06.83 [facility] R53.83 Other fatigue Office Visit 06/16/2019 10:20a [facility] Internal Kandice Tesfayeramy, H92.01 Otalgia , right Medicine - [facility] N.P. ear K21.9 Gastro-esophageal reflux disease without esophagitis Office Visit 05/14/2019 8:00a [facility] Internal Gabo Baxter MD J06.9 Acute upper Medicine - Suite respiratory R infection, unspecified R00.1 Bradycardia, unspecified Office Visit 04/21/2019 Florian Allen, S43.004D Unspecified 3:30p Orthopedics at dislocation of [place] right shoulder joint, subs encntr M75.41 Impingement syndrome of right shoulder Office Visit 04/02/2019 4:00p [facility] Internal Mary Galvez, Z00.00 Encntr for Medicine - Suite MD general adult R medical exam w/o abnormal findings I10 Essential (primary) hypertension J45.20 Mild intermittent asthma, uncomplicated R51 Headache Office Visit 03/31/2019 Florian Allen, S43.004D Unspecified 8:15a Orthopedics at dislocation of [place] right shoulder joint, subs encntr M75.41 Impingement syndrome of right shoulder Assessments Date Code Description Provider 09/17/2019 R53.83 Other fatigue David Holland NP 09/17/2019 M75.41 Impingement syndrome of right shoulder Chris Flores MD 09/17/2019 K21.9 Gastro-esophageal reflux disease without David ROSSY Holland esophagitis 09/17/2019 S43.004D Unspecified dislocation of right shoulder Chris Flores MD joint, subsequent encounter 09/17/2019 I10 Essential (primary) hypertension David Holland NP 09/17/2019 M75.21 Bicipital tendinitis, right shoulder Chris Flores MD 09/17/2019 R51 Headache David Holland NP 09/07/2019 R06.83 Snoring Ilana Dunn MD 09/07/2019 [...] 05/25/2019 M75.21 Bicipital tendinitis, right shoulder KANDACE SaenzC 05/25/2019 S43.004A Unspecified dislocation of right shoulder Lynne Childress PA-C joint, initial encounter 05/25/2019 S43.004A Unspecified dislocation of right shoulder Elton Allen MD joint, initial encounter 05/25/2019 M75.41 Impingement syndrome of right shoulder ARVIN SaenzC 05/25/2019 M75.41 Impingement syndrome of right shoulder Elton Allen MD 05/25/2019 M75.21 Bicipital tendinitis, right shoulder Elton Allen MD 05/22/2019 S43.004D Unspecified dislocation of right shoulder Lynne Childress PA-C joint, subsequent encounter 05/22/2019 M75.41 Impingement syndrome of right shoulder ARVIN SaenzC 05/22/2019 M75.21 Bicipital tendinitis, right shoulder KANDACE SaenzC 05/14/2019 J06.9 Acute upper respiratory infection, Gabo [...] Ivan NP at [facility]09/17/2019 - David Holland, NPR53.83 Other fatigueComments:Continue following with the sleep clinic.K21.9 Gastro- esophageal reflux disease without esophagitisComments:The sensation you are feeling may be relates to acid reflux. Lifestyle modification is important in acid reflux. Continue to avoid eating within 3-4 hours of bed, elevate the head of you bed, try to limit caffeine and alcohol, and any foods identified as triggers. Please let me know if symptoms do notimprove or worsen. Continue taking the pantoprazole.I10 Essential (primary) hypertensionComments:Continue on amlodipine and checking your blood pressure weekly.R51 Headache Functional Status Description No Information Available Mental Status Description No Information Available Referrals Refer to Reason for Referral Status Appt Date [facility] Sleep Clinic Sent 09/07/2019 [address] [place] [address] [phone] Cristofer Hunt MD Constant irritation of his Received Partial 2019 throat, right ear and sinuses for over 1 1/2 months. Referred for evaluation and treatment. Thank yo for seeing this pleasant patient. [address] [place] [address] [phone] Aaliyah Lamas MD Patient with persistent GERD symptoms despite Closed 07/23 being on PPI. Referred for evaluation. Thank you [address] [place] [address] [phone]
--- OUTSIDE RECORDS SUMMARY | 2019-10-20 06:36 | XMS REPORT | Continuity of Care Document ---
:1975 External Reference #:[id number] Author Name David Holladn NP Address [address] [place] [address], [place] [address] Care Team Providers Name Role Phone David Holland NP - Internal Medicine Care Team Information [employer] [place] [employer] [phone] Mary Steinberg MD - Internal Medicine Care Team Information [place] [employer] [phone] [facility] [place] [place] Physical [facility] AT [place] - Care Team Information [place] [employer] [phone] Physical Therapist Problems Active Problems Provider Date Lumbosacral spondylosis without Mayur Jadiel Jamison M.D. Onset: 12/21/2014 myelopathy Disturbance in sleep behavior Ilana Dunn MD Onset: 12/09/2015 Obesity Ilana Dunn MD Onset: 12/09/2015 Asthma David Holland NP Onset: 01/01/2017 Palpitations Jon Hernandez M.D., [facility], Onset: 10/01/2018 [facility]AS[facility] Shoulder joint unstable [...] Medications SIG Qnty Indications Ordering Date Provider Amoxicillin/Clavulana take one tablet 20tabs J01.90 David Holland NP 2019 te Potassium q12 hours for 10 875-125mg days Tablets Pantoprazole Sodium take 1 tab daily 90tabs [...] Auto weekly at home Inflate Misc Fluticasone spray 2 sprays 16units R51 David Holland NP 11/04/2017 Propionate into each nostril 50mcg/Act one time daily as Suspension needed Albuterol 2 puffs four 1units J45.20 [...] RPA-C 03/19/2018 Injection Depomedrol 40MG Patti Bitting, [facility] 08/29/2017 Injection Immunizations Description No Information Available [...] Result H/L Range Note Laboratory test 07/14/2019 [facility] Troponin-I 0.00 ng/mL < 0.[address] (TnI) [place] [address] [phone] Urinalysis Profile 07/14/2019 [facility] Urine Color Yellow [address] [place] [address] [phone] Urine Appearance Clear Urine Specific [place] 1.006 Low 1.010-1.030 Urine pH 6.0 Normal 5-9 Urine Urobilinogen Negative Negative Urine Ketones Negative Negative Urine Protein Negative Negative Urine Leukocytes Negative Negative Urine Blood Negative Negative Urine Nitrite Negative Negative Urine Bilirubin Negative Negative Urine Glucose Negative Negative Laboratory 07/14/2019 [facility] B-Type 10 pg/mL <=100 test finding [address] [place] [address] Peptide BNP [phone] CBC Auto Diff 07/14/2019 [facility] White Blood 5.1 Normal 3.5 -10.[address] Count 10^3/[place] [address] [phone] Red Blood Count 4.56 10^6/uL Normal 4.18-5.48 [...] Red Blood Cells % 0.5 Inr/Protime 07/14/2019 [facility] Inr 0.98 Normal 0.82-1.09 2 [address] [place] [address] [phone] Laboratory test 07/14/2019 [facility] Partial 42.8 High 26.0- 38.0 finding [address] [facility] [place] [address] Time PTT [phone] Comp Metabolic 07/14/2019 [facility] Sodium 139 mmol/L Normal 135-145 Panel [address] [place] [address] [phone] Potassium 3.7 mmol/L Normal 3.5-5.0 Chloride 104 [...] 104.5 >60 Egfr 126.4 >60 3 Laboratory test 07/14/2019 [facility] Troponin-I 0.01 ng/mL < 0.03 [address] (TnI) [place] [address] [phone] Laboratory test 05/20/2019 [facility] Rapid Strep Negative Negative [address] [place] [address] [phone] 1 Troponin-I testing on Plasma Separator Tubes (PST) has a known false positive rate of 0.20-0.40%. All positive troponins reflex immediately to secondary confirmatory testing. Using the [employer] DxI 800 Access Immunoassay systems, the 99th [...] immediately to secondary confirmatory testing. Using the [employer] DxI 800 Access Immunoassay systems, the 99th percentile upper reference limit was demonstrated to be < 0.03 ng/mL. 5 Weld Lay Out Worker: [id number] Procedures Date Code Description Status 05/25/2019 Tenodes[facility] Biceps Long Tendon Completed 05/25/201984930 Tenodesis Biceps Long Tendon Completed 05/25/201984549 Tenodesis Biceps Long Tendon Completed Medical Devices Description No Information Available Encounters Type Date Location Provider Dx Diagnosis Office Visit 09/17/2019 [facility] Internal David Holland NP R53.83 Other fatigue 4:00p Medicine - Ccmob K21.9 Gastro-esophageal reflux disease without esophagitis I10 Essential (primary) hypertension R51 Headache Office Visit 09/17/2019 8:00a Florian Kruse M75.41 Impingement Orthopedics at [facility] syndrome of right [place] shoulder S43.004D Unspecified dislocation of right shoulder joint, subs encntr M75.21 Bicipital tendinitis, right shoulder Office Visit 09/07/2019 8:00a Pulmonology And Sleep Ilana Dunn, R06.83 [facility] R53.83 Other fatigue Office Visit 06/16/2019 10:20a [facility] Internal Kandice Hurd, H92.01 Otalgia , right Medicine - Ccm[facility] N.P. ear K21.9 Gastro-esophageal reflux disease without esophagitis Office Visit 05/14/2019 8:00a [facility] Internal Gabo Baxter MD J06.9 Acute upper Medicine - Suite respiratory R infection, unspecified R00.1 Bradycardia, unspecified Office Visit 04/21/2019 [place], S43.004D Unspecified 3:30p Orthopedics at dislocation of [place] right shoulder joint, subs encntr M75.41 Impingement syndrome of right shoulder Assessments Date Code Description Provider 10/16/2019 J01.90 Acute sinusitis, unspecified Davidmary Holland NP 09/17/2019 R53.83 Other fatigue David Holland NP 09/17/2019 M75.41 Impingement syndrome of right shoulder Chris Flores MD 09/17/2019 K21.9 Gastro-esophageal reflux disease without Davidmary Holland NP esophagitis 09/17/2019 S43.004D Unspecified dislocation of right [...] 05/22/2019 M75.21 Bicipital tendinitis, right shoulder Lynne KANDACE Childress 05/14/2019 J06.9 Acute upper respiratory infection, Gabo Baxter MD unspecified 05/14/2019 R00.1 Bradycardia, unspecified Gabo Baxter MD 04/21/2019 S43.004D Unspecified dislocation of right shoulder Elton Allen MD joint, subsequent encounter 04/21/2019 M75.41 Impingement syndrome of right shoulder Elton Allen MD Plan of Treatment Future Appointment(s):11/24/2019 3:30 pm - Chris Flores MD at [facility]/26/2019 2:00 pm - Cassie Ivan NP at [facility]10/16/2019 - David Holland NPJ01.90 Acute sinusitis, unspecifiedNew Medication:Amoxicillin/Clavulanate Potassium 875-125 mg - take one tablet q12 hours for 10 daysComments:Continue to use Flonase, 2 sprays each nostril.A decongestant, such as Sudafed, may help reduce sinus pain and pressure. You can try using a sinus rinse, such as Mukesh Med, to flush out your sinuses. Ifyour symptoms worsen or do not improve over the next few days start the antibiotic.Follow up:prn Functional Status Description No Information Available Mental Status Description No Information Available Referrals Refer to Reason for Referral Status Appt Date [facility] [place] Sleep Clinic Sent 09/07/2019 [address] [place] [address] [phone] Cristofer Hunt MD Constant irritation of his Received Partial 2019 throat, right ear and sinuses for over 1 1/2 months. Referred for evaluation and treatment. Thank yo for seeing this pleasant patient. [address] [place] [address] [phone] Aaliyah Lamas MD Patient with persistent GERD symptoms despite Closed 07/23 being on PPI. Referred for evaluation. Thank you [address] [place] [address] [phone]
--- OUTSIDE RECORDS SUMMARY | 2019-10-20 06:36 | XMS REPORT | Continuity of Care Document ---
:1975 External Reference #:[id number] Author Name David Holland NP (transmitted by agent of provider Sheryl Pemberton) Address [address] [facility], [place] [address] Care Team Providers Name Role Phone Mary Steinberg MD - Internal Medicine Care Team Information Care Mgr [phone] [facility] - Care Team Information Care Mgr Physical Therapist Problems Active Problems Provider Date Lumbosacral spondylosis without Mayur Jadiel Jamison M.D. Onset: 12/21/2014 myelopathy Disturbance in sleep behavior Ilana Dunn MD Onset: 12/09/2015 Obesity Ilana Dunn MD Onset: 12/09/2015 Asthma David Holland NP Onset: 01/01/2017 Palpitations Jon Hernandez M.D., [facility], Onset: 10/01/2018 [facility] Shoulder joint unstable [...] Auto weekly at home Inflate Misc Fluticasone [place] 2 Sprays 16units R51 David Holland NP [...] Allen MD 03/31/2019 Injection Depomedrol 40MG Patti Emersonarlene, RPA-C 03/19/2018 Injection Depomedrol 40MG Patti Bitting, [facility] 08/29/2017 Injection Immunizations Description No [...] Result H/L Range Note Laboratory test 07/14/2019 [facility] Troponin-I 0.00 ng/mL < 0.[address] (TnI) [place] [address] [phone] Urinalysis Profile 07/14/2019 [facility] Urine Color Yellow [address] [place] [address] [phone] Urine Appearance Clear Urine Specific [place] 1.006 Low 1.010-1.030 Urine pH 6.0 Normal 5-9 Urine Urobilinogen Negative Negative Urine Ketones Negative Negative Urine Protein Negative Negative Urine Leukocytes Negative Negative Urine Blood Negative Negative Urine Nitrite Negative Negative Urine Bilirubin Negative Negative Urine Glucose Negative Negative Laboratory 07/14/2019 [facility] B-Type 10 pg/mL <=100 test finding [address] [place] [address] Peptide BNP [phone] CBC Auto Diff 07/14/2019 [facility] White Blood 5.1 Normal 3.5 -10.[address] Count 10^3/uL [place], [place] [id number] [phone] Red Blood Count 4.56 10^6/uL Normal 4.18-5.48 [...] Red Blood Cells % 0.5 Inr/Protime 07/14/2019 [facility] Inr 0.98 Normal 0.82-1.09 2 [address] [place] [address] [phone] Laboratory test 07/14/2019 [facility] Partial 42.8 High 26.0- 38.0 finding [address] [facility] [place] [address] Time PTT [phone] Comp Metabolic 07/14/2019 [facility] Sodium 139 mmol/L Normal 135-[address] [place] [address] [phone] Potassium 3.7 mmol/L Normal 3.5-5.0 Chloride 104 [...] >60 Egfr 126.4 >60 3 Laboratory 07/14/2019 [facility] Troponin-I 0.01 ng/mL <0.[address] (TnI) [place] [address] [phone] Laboratory 05/20/2019 [facility] Rapid Strep Negative Negative 5 test [place] [address] [phone] Comp Metabolic 04/07/2019 [facility] Sodium 137 mmol/L Normal 135-[address] [place] [address] [phone] Potassium 3.9 mmol/L Normal 3.5-5.0 Chloride 104 [...] Egfr 130.1 >60 6 Laboratory test 04/07/2019 [facility] Magnesium 2.2 mg/dL Normal 1.9-2.[address] [place] [address] [phone] CRP High Sensitivity 0.45 mg/L <2.00 CBC Auto 04/07/2019 [facility] White Blood 8.6 10^3/uL Normal 3.5-10.8 Diff [address] [place] [address] [phone] Red Blood Count 4.91 10^6/uL Normal 4.18-5.48 [...] Blood Cells % 0.0 Laboratory test 04/07/2019 [facility] Erythrocyte Sed 5 mm/Hr Normal 0-[address] [place] [address] [phone] 1 Troponin-I testing on Plasma Separator Tubes (PST) has a known false positive rate of 0.20-0.40%. All positive troponins reflex immediately to secondary confirmatory testing. Using the [employer] DxI 800 Access Immunoassay systems, the 99th [...] immediately to secondary confirmatory testing. Using the [employer] DxI 800 Access Immunoassay systems, the 99th percentile upper reference limit was demonstrated to be < 0.03 ng/mL. 5 Fermentation Manager: [id number] 6 Because ethnic data is not always [...] dialysis) Procedures Date Code Description Status 05/25/2019 48463 Tenodesis Biceps Long Tendon Completed 05/25/2019 69160 Tenodesis Biceps Long Tendon Completed 05/25/2019 13270 Tenodesis Biceps Long Tendon Completed 03/31/2019 32745 Inject/Drain Joint/Bursa Major W/O US Completed Medical Devices Description No Information Available Encounters Type Date Location Provider Dx Diagnosis Office Visit 09/17/2019 [facility] David Holland NP R53.83 Other fatigue 4:00p Medicine - [facility] K21.9 Gastro-esophageal reflux disease without esophagitis I10 Essential (primary) hypertension R51 Headache Office Visit 09/07/2019 8:00a [facility] Ilana Dunn, R06.83 [facility] R53.83 Other fatigue Office Visit 06/16/2019 10:20a [facility] Kandice Hurd, H92.01 Otalgia , right Medicine - [facility] N.P. ear K21.9 Gastro-esophageal reflux disease without esophagitis Office Visit 05/14/2019 8:00a [facility] Gabo Baxter MD J06.9 Acute upper Medicine - Suite respiratory R infection, unspecified R00.1 Bradycardia, unspecified Office Visit 04/21/2019 [facility] Elton Allen, S43.004D Unspecified 3:30p Orthopedics at dislocation of [place] right shoulder joint, subs encntr M75.41 Impingement syndrome of right shoulder Office Visit 04/02/2019 4:00p [facility] Mary Galvez, Z00.00 Encntr for Medicine - Suite general adult R medical exam w/o abnormal findings I10 Essential (primary) hypertension J45.20 Mild intermittent asthma, uncomplicated R51 Headache Office Visit 03/31/2019 [place] Allen, S43.004D Unspecified 8:15a Orthopedics at dislocation of [place] right shoulder joint, subs encntr M75.41 Impingement syndrome of right shoulder Assessments Date Code Description Provider 09/17/2019 R53.83 Other fatigue David Holland NP 09/17/2019 M75.41 Impingement syndrome of right shoulder Chris Flores MD 09/17/2019 K21.9 Gastro-esophageal reflux disease without David Holland NP esophagitis 09/17/2019 S43.004D Unspecified dislocation [...] M75.21 Bicipital tendinitis, right shoulder KANDACE Saenz -C 05/25/2019 S43.004A Unspecified dislocation of right [...] SaenzC 05/22/2019 M75.21 Bicipital tendinitis, right shoulder Lynne [...] Treatment Future Appointment(s):10/07/2019 8:00 am - Cassie Ivan, MATERIAL PREPARATION WORKER at [facility]09/17/2019 - Chris Flores, MDM75.41 Impingement syndrome of right shoulderNew Xrays:MRI Shoulder Right W/O, Ordered : 09/17/19Follow up:Follow up: after MRIS43.004D Unspecified dislocation of right shoulder joint, subsequent tabbmpmkmX09.21 Bicipital tendinitis, right shoulder Functional Status Description No Information Available Mental Status Description No Information Available Referrals Refer to Reason for Referral Status Appt Date [facility] Sleep Clinic Sent 09/07/2019 [address] [place] [address] [phone] Cristofer Hunt MD Constant irritation of his Received Partial 2019 throat, right ear and sinuses for over 1 1/2 months. Referred for evaluation and treatment. Thank yo for seeing this pleasant patient. [address] [place], [place] [address] [phone] Aaliyah Lamas MD Patient with persistent GERD symptoms despite Closed 07/23 being on PPI. Referred for evaluation. Thank you [address] [place], [place] [address] [phone]
--- OUTSIDE RECORDS SUMMARY | 2019-10-20 06:36 | XMS REPORT | Continuity of Care Document ---
:1975 External Reference #:[id number] Author Name Ilana Dunn MD (transmitted by agent of provider Kimber Lackey) Address [address] [facility], [address] [place] [id number] Care Team Providers Name Role Phone Mary Steinberg MD - Internal Medicine Care Team Information Mice Raiser [phone] Problems Active Problems Provider Date Lumbosacral spondylosis without Mayur Jamison M.D. Onset: 12/21/2014 myelopathy Disturbance in sleep behavior Ilana Dunn MD Onset: 12/09/2015 Obesity Ilana Dunn MD Onset: 12/09/2015 Asthma David Skyler, REHABILITATION SERVICES MANAGER Onset: 01/01/2017 Palpitations Jon Hernandez M.D., [facility], Onset: 10/01/2018 [facility]AS[facility] Shoulder joint unstable Elton [...] Auto weekly at home Inflate Misc Fluticasone [place] 2 Sprays 16units R51 David Holland NP [...] STACY Pastrana 03/19/2018 Injection Depomedrol 40MG Patti Jesús [facility] 08/29/2017 Injection Immunizations Description No Information Available [...] Result H/L Range Note Laboratory test 07/14/2019 [facility] Troponin-I 0.00 ng/mL < 0.03 [address] (TnI) [place] [address] [phone] Urinalysis Profile 07/14/2019 [facility] Urine Color Yellow [address] [place] [address] [phone] Urine Appearance Clear Urine Specific [place] 1.006 Low 1.010-1.030 Urine pH 6.0 Normal 5-9 Urine Urobilinogen Negative Negative Urine Ketones Negative Negative Urine Protein Negative Negative Urine Leukocytes Negative Negative Urine Blood Negative Negative Urine Nitrite Negative Negative Urine Bilirubin Negative Negative Urine Glucose Negative Negative Laboratory 07/14/2019 [facility] B-Type 10 pg/mL <=100 test finding [address] [place] [address] Peptide BNP [phone] CBC Auto Diff 07/14/2019 [facility] White Blood 5.1 Normal 3.5 -10.[address] Count 10^3/[place] [address] [phone] Red Blood Count 4.56 10^6/uL Normal 4.18-5.48 [...] Red Blood Cells % 0.5 Inr/Protime 07/14/2019 [facility] Inr 0.98 Normal 0.82-1.09 2 [address] [place] [address] [phone] Laboratory test 07/14/2019 [facility] Partial 42.8 High 26.0- 38.0 finding [address] [facility] [place] [address] Time PTT [phone] Comp Metabolic 07/14/2019 [facility] Sodium 139 mmol/L Normal 135-145 Panel [address] [place] [address] [phone] Potassium 3.7 mmol/L Normal 3.5-5.0 Chloride 104 [...] >60 Egfr 126.4 >60 3 Laboratory 07/14/2019 [facility] Troponin-I 0.01 ng/mL <0.03 4 test finding (TnI) [place] [address] [phone] Laboratory 05/20/2019 [facility] Rapid Strep Negative Negative 5 [place] [address] [phone] Comp Metabolic 04/07/2019 [facility] Sodium 137 mmol/L Normal 135-145 [place] [address] [phone] Potassium 3.9 mmol/L Normal 3.5-5.0 Chloride 104 [...] Egfr 130.1 >60 6 Laboratory test 04/07/2019 [facility] Magnesium 2.2 mg/dL Normal 1.9-2.[address] [facility] [place] [address] [phone] CRP High Sensitivity 0.45 mg/L <2.00 CBC Auto 04/07/2019 [facility] White Blood 8.6 10^3/uL Normal 3.5-10.8 [place] [address] [phone] Red Blood Count 4.91 10^6/uL Normal 4.18-5.48 [...] Blood Cells % 0.0 Laboratory test 04/07/2019 [facility] Erythrocyte Sed 5 mm/Hr Normal 0-[address] [place] [address] [phone] 1 Troponin-I testing on Plasma Separator Tubes (PST) has a known false positive rate of 0.20-0.40%. All positive troponins reflex immediately to secondary confirmatory testing. Using the [employer] DxI 800 Access Immunoassay systems, the 99th [...] immediately to secondary confirmatory testing. Using the [employer] DxI 800 Access Immunoassay systems, the 99th percentile upper reference limit was demonstrated to be < 0.03 ng/mL. 5 Interface Developer: [id number] 6 Because ethnic data is not always [...] dialysis) Procedures Date Code Description Status 05/25/2019 37318 Tenodesis Biceps Long Tendon Completed 05/25/2019 28764 Tenodesis Biceps Long Tendon Completed 05/25/2019 60430 Tenodesis Biceps Long Tendon Completed 03/31/2019 66619 Inject/Drain Joint/Bursa Major W/O US Completed Medical Devices Description No Information Available Encounters Type Date Location Provider Dx Diagnosis Office Visit 09/07/2019 [facility] Ilana Dunn MD R06.83 Snoring 8:00a [facility] R53.83 Other fatigue Office Visit 06/16/2019 10:20a [facility] Kandice Hurd H92.01 Otalgia , right Medicine - Ccmob N.P. ear K21.9 Gastro-esophageal reflux disease without esophagitis Office Visit 05/14/2019 8:00a [facility] Gabo Baxter MD J06.9 Acute upper Medicine - Suite respiratory R infection, unspecified R00.1 Bradycardia, unspecified Office Visit 04/21/2019 Florian Elton Allen, S43.004D Unspecified 3:30p Orthopedics at dislocation of [place] right shoulder joint, subs encntr M75.41 Impingement syndrome of right shoulder Office Visit 04/02/2019 4:00p [facility] Mary Galvez, Z00.00 Encntr for Medicine - Suite MD general adult R medical exam w/o abnormal findings I10 Essential (primary) hypertension J45.20 Mild intermittent asthma, uncomplicated R51 Headache Office Visit 03/31/2019 Florian Elton Allen, S43.004D Unspecified 8:15a Orthopedics at dislocation of [place] right shoulder joint, subs encntr M75.41 Impingement [...] Elton Allen MD Plan of Treatment Future Appointment(s):09/17/2019 4:00 pm - David Holland NP at [facility] Internal Medicine - [facility]09/17/2019 8:00 am - Chris Flores MD at [facility]10/07/2019 8:00 am - Cassie Ivan NP at [facility]09/07/2019 - Ilana Dunn, MDR06.83 SnoringNew Orders:Home Sleep Testing, Ordered: 09/07/19Follow up:2 bcbwpZ64.83 Other fatigue Functional Status Description No Information Available Mental Status Description No Information Available Referrals Refer to Reason for Referral Status Appt Date [facility] Sleep [facility] Sent 09/07/2019 [address] [place] [address] [phone] Cristofer Hunt MD Constant irritation of his Received Partial 2019 throat, right ear and sinuses for over 1 1/2 months. Referred for evaluation and treatment. Thank yo for seeing this pleasant patient. [address] [place] [address] [phone] Aaliyah Lamas MD Patient with persistent GERD symptoms despite Closed 07/23 being on PPI. Referred for evaluation. Thank you [address] [place] [address] [phone]
[2019-10-20 06:48] LABS: Albumin 4.2 g/dL (3.2-5.2); Albumin/Globulin Ratio 1.5 (1-3); BUN/Creatinine Ratio 24.4 (8-20); Calcium 9.2 mg/dL (8.6-10.3); EGFR Non-African American 97.5 (>60); Globulin 2.8 g/dL (2-4); Potassium 3.9 mmol/L (3.5-5.0); Total Bilirubin 0.5 mg/dL (0.2-1.0)
--- NOTE | 2019-10-20 06:58 | ED ---
HPI Chest Pain - HPI Summary HPI Summary: The patient is a 44-year-old male with history of hypertension presenting to the ED with multiple complaints. Patient endorses midsternal chest pain which radiates through to the back as well as headaches daily and shortness of breath. He states symptoms have been present x several months to even up to a year. States he has had ROSALES's for several years, but his chest pain just started about 14 mos ago. He endorses SOB intermittently as well associated with the CP. States he has a ROSALES daily, and takes Tylenol. States his ROSALES never really goes away and typically is behind his eyes, but now is occipital. Denies this acute onset or worst of life ROSALES. Denies weakness, visual changes, numbness or tingling throughout. States hx of anxiety, but denies this currently. States he has not been around anyone sick, has not had a cough, fever, congestion, sore throat, diarrhea or abd pain. 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 Denies smoking hx. Personal hx of HTN. Family hx of HTN, CAD, CA. Pt states he is concerned about CA or heart disease. It appears he is somewhat anxious. - History of Current Complaint Chief Complaint: EDChestPainROMI Time Seen by Provider: 10/20/19 06:10 Hx Obtained From: Patient Onset/Duration: Started Hours Ago Timing: Constant Initial Severity: Mild Current Severity: Mild Pain Intensity: 7 Pain Scale Used: 0-10 Numeric Chest Pain Radiates: No Aggravating Factor(s): Nothing Alleviating Factor(s): Nothing Associated Signs and Symptoms: Positive: Headaches, Shortness of Breath. Negative: Chest Pain, Vision Changes, Anxiety, Recent Stress, Fever, Cough, Productive Cough, Nonproductive Cough - Risk Factors Pulmonary Embolism Risk Factors: Negative TAD Risk Factors: Negative - Allergy/Home Medications Allergies/Adverse Reactions: Allergies Allergy/AdvReac Type Severity Reaction Status Date / Time bee venom protein (honey bee) Allergy Severe Anaphylatic Verified 09/11/19 18:36 Shock shellfish derived Allergy Severe GI Upset Verified 09/11/19 18:36 Home Medications: Home Medications Multivitamins/Minerals TAB* [Theragran/minerals TAB*] 1 tab PO DAILY 09/10/17 [ History Confirmed 10/20/19] Magnesium Oxide [Magnesium] 250 mg PO QAM 07/18/18 [History Confirmed 10/20/19] Atenolol TAB* [Tenormin TAB* 25 MG] 25 mg PO DAILY 02/02/19 [History Confirmed 10/20/19] Pantoprazole TAB * [Protonix TAB*] 40 mg PO DAILY 05/21/19 [History Confirmed ] Amlodipine 2.5 mg TAB (NF) 2.5 mg PO DAILY 07/14/19 [History Confirmed 10/20/19] Amoxicillin PO (*) [Amoxicillin 875 MG (*)] 875 mg PO BID 10/20/19 [History Confirmed 10/20/19] Fexofenadine/Pseudoephedrine [Zaira-D 24 Hour Tablet] 1 each PO DAILY [History Confirmed 10/20/19] Turmeric 400 mg PO DAILY 10/20/19 [History Confirmed 10/20/19] PMH/Surg Hx/FS Hx/Imm Hx Previously Healthy: Yes Endocrine/Hematology History: Denies: Hx Anticoagulant Therapy, Hx Blood Disorders, Hx Diabetes, Hx Thyroid Disease Cardiovascular History: Reports: Hx Hypertension - on atenolol Denies: Hx Angina, Hx Congestive Heart Failure, Hx Coronary Artery Disease, Hx Myocardial Infarction, Hx Pacemaker/ICD, Hx Valvular Heart Disease Respiratory History: Reports: Hx Asthma - INHALER NEEDED (well controlled), Other Respiratory Problems/Disorders - POOR RESPIRATORY TEST 4 yrs ago + skin TB test - had (-) serial CXR's tx'd Denies: Hx Chronic Obstructive Pulmonary Disease (COPD) GI History: Reports: Hx Gastroesophageal Reflux Disease - on med Denies: Hx Ulcer History: Reports: Hx Kidney Stones - 2010 Denies: Hx Dialysis, Hx Renal Disease Musculoskeletal History: Reports: Hx Tendonitis - right hand- received cortisone injection over 1 year ago Denies: Hx Rheumatoid Arthritis, Hx Osteoporosis Sensory History: Denies: Hx Contacts or Glasses, Hx Hearing Aid Opthamlomology History: Denies: Hx Contacts or Glasses Neurological History: Reports: Hx Migraine - triggered by low magnesium in the past Psychiatric History: Reports: Hx Anxiety - no meds Denies: Hx Panic Disorder, Hx of Violent Episodes Against Others - Cancer History Hx Chemotherapy: No - Surgical History Surgery Procedure, Year, and Place: October 2010 - Kidney stone removed. tonsillectomy as a child. 2000 - repaired laceration to right hand. had spinal tap to r/o meningitis - had to have blood patch next day. CHOLECYSTECTOMY Hx Anesthesia Reactions: No - Immunization History Date of Tetanus Vaccine: 2011 Date of Influenza Vaccine: None Hx Pertussis Vaccination: No Immunizations Up to Date: Yes Infectious Disease History: No Infectious Disease History: Denies: Hx Clostridium Difficile, Hx Hepatitis, Hx Human Immunodeficiency Virus (HIV), Hx of Known/Suspected MRSA, Hx Shingles, Hx Tuberculosis, Hx Known/ Suspected VRE, Hx Known/Suspected VRSA, History Other Infectious Disease, Traveled Outside the [place] in Last 30 Days - Family History Known Family History: Positive: Cardiac Disease - MOM AND DAD BOTH HAD 3V CABG IN THEIR 50s, Hypertension, Diabetes - brother, recent, Other - cancer - Social History Occupation: Employed Full-time Lives: Alone Alcohol Use: Weekly Alcohol Amount: Few beers on the weekends Hx Substance Use: Yes Substance Use Type: Reports: Marijuana Substance Use Comment - Amount & Last Used: states socially-denies any other drug use Hx Tobacco Use: Yes - not currently Smoking Status (MU): Former Smoker Type: Cigarettes Amount Used/How Often: More than 1.5 pack per day Length of Time of Smoking/Using Tobacco: 27 years old Have You Smoked in the Last Year: No Review of Systems Negative: Fever, Chills, Fatigue, Skin Diaphoresis Positive: Chest Pain. Negative: Palpitations Positive: Shortness Of Breath. Negative: Cough Genitourinary: Negative Positive: no symptoms reported, see HPI Negative: Arthralgia, Myalgia Skin: Negative Positive: Headache. Negative: Weakness, Paresthesia, Numbness All Other Systems Reviewed And Are Negative: Yes Physical Exam Triage Information Reviewed: Yes Vital Signs On Initial Exam: Initial Vitals Temp Pulse Resp BP Pulse Ox 98.8 F 64 16 161/101 98 10/20/19 06:06 10/20/19 06:06 10/20/19 06:06 10/20/19 06:06 10/20/19 06:06 Vital Signs Reviewed: Yes Appearance: Positive: Well-Appearing, Well-Nourished Skin: Positive: Warm, Skin Color Reflects Adequate Perfusion Head/Face: Positive: Normal Head/Face Inspection Eyes: Positive: EOMI, JAIME, Conjunctiva Clear Neck: Positive: Supple, No Lymphadenopathy Respiratory/Lung Sounds: Positive: Clear to Auscultation, Breath Sounds Present Cardiovascular: Positive: Normal, RRR, Pulses are Symmetrical in both Upper and Lower Extremities Musculoskeletal: Positive: Normal, Strength/ROM Intact Neurological: Positive: Speech Normal Psychiatric: Positive: Normal, Affect/Mood Appropriate AVPU Assessment: Alert Procedures - Sedation Patient Received Moderate/Deep Sedation with Procedure: No Diagnostics - Vital Signs Vital Signs Temp Pulse Resp BP Pulse Ox 10/20/19 06:36 67 20 161/99 98 10/20/19 06:10 66 12 97 10/20/19 06:06 98.8 F 64 16 161/101 98 - Laboratory Lab Results: Lab Results 10/20/19 10/20/19 10/20/19 Range/Units 06:15 06:15 06:15 WBC 5.6 (3.5-10.8) 10^3/uL RBC 5.10 (4.18-5.48) 10^6 /uL Hgb 14.8 (14.0-18.0) g/dL Hct 42 (42-52) % MCV 83 (80-94) fL MCH 29 (27-31) pg MCHC 35 (31-36) g/dL RDW 13 (10-15) % Plt Count 174 (150-450) 10^3/uL MPV 8.0 (7.4-10.4) fL Neut % (Auto) 43.8 % Lymph % (Auto) 42.4 % [place] % (Auto) 10.1 % Eos % (Auto) 3.0 % Baso % (Auto) 0.7 % Absolute Neuts (auto) 2.5 (1.5-7.7) 10^3/ul Absolute Lymphs (auto) 2.4 (1.0-4.8) 10^3/ul Absolute Monos (auto) 0.6 (0-0.8) 10^3/ul Absolute Eos (auto) 0.2 (0-0.6) 10^3/ul Absolute Basos (auto) 0.0 (0-0.2) 10^3/ul Absolute Nucleated RBC 0.0 10^3/ul Nucleated RBC % 0.1 INR (Anticoag Therapy) 1.01 (0.82-1.09) Sodium 138 (135-145) mmol/L Potassium 3.9 (3.5-5.0) mmol/L Chloride 105 (101-111) mmol/L Carbon Dioxide 27 (22-32) mmol/L Anion Gap 6 (2-11) mmol/L BUN 21 (6-24) mg/dL Creatinine 0.86 (0.67-1.17) mg/dL Est GFR ( Amer) 118.0 (>60) Est GFR (Non-Af Amer) 97.5 (>60) BUN/Creatinine Ratio 24.4 H (8-20) Glucose 119 H (70-100) mg/dL Calcium 9.2 (8.6-10.3) mg/dL Total Bilirubin 0.50 (0.2-1.0) mg/dL AST 18 (13-39) U/L ALT 22 (7-52) U/L Alkaline Phosphatase 48 (34-104) U/L Troponin I 0.00 (<0.03) ng/mL Total Protein 7.0 (6.4-8.9) g/dL Albumin 4.2 (3.2-5.2) g/dL Globulin 2.8 (2-4) g/dL Albumin/Globulin Ratio 1.5 (1-3) Result Diagrams: 10/20/19 06:15 10/20/19 06:15 Lab Statement: Any lab studies that have been ordered have been reviewed, and results considered in the medical decision making process. Chest Pain Course/Dx - Course Course Of Treatment: This patient's evaluated for his multiple complaints. He is complaining of midsternal chest pain which often will radiate through to the back. He states this happens intermittently and has been present for over a year. He is also endorses shortness of breath. He is also endorsing a 6/10 headache which has been persistent every day for several years. He continues to take Tylenol nearly daily with minimal relief. He states he has seen his PCP as well as been seen in the ED multiple times for this. He has had a normal cardiac workup as of last month. Patient appears well. Lungs CTA. RRR. No abdominal tenderness throughout. No neurologic symptoms. Labs obtained and are WNL including a troponin of 0.00. Chest x-ray obtained which is negative for any acute cardiopulmonary findings. Vital signs are stable. Discussed with the patient is symptoms may be related to some sleep apnea as he tends to have symptoms upon wakening and/or in the middle night. He does have a follow-up with Dr. uDnn in 2 weeks for this. As he has had a negative cardiac workup and again today with normal troponin, no changes on the EKG and is otherwise stable, this is unlikely cardiac related. HEART SCORE = low. - Diagnoses Provider Diagnoses: Atypical chest pain - Critical Care Time Critical Care Statement: Critical care time is provided exclusive of any time spent performing procedures. Discharge ED - Sign-Out/Discharge Documenting (check all that apply): Patient Departure - Discharge Plan Condition: Stable Disposition: HOME Referrals: Ilana Dunn MD [Medical Doctor] - David Holland NP [Primary Care Provider] - Additional Instructions: Please follow up with Dr. Dunn as scheduled - Billing Disposition and Condition Condition: STABLE Disposition: Home - Attestation Statements Provider Attestation: I was available for consultation for this patient. I did not evaluate the patient or participate in any medical decision making or disposition decisions unless I am specifically named in the chart as having consulted on the patient. If I have consulted on the patient, please see my own ED note on the patient encounter. Tobin Lind MD
[2019-10-20 08:15] VITALS: BP 129/85
== END 2019-10-20 08:15 | disposition home or self-care (01) ==
LOC: ED 06:03
DX: R07.89 Other chest pain (principal); R51 Headache; I10 Essential (primary) hypertension; R06.02 Shortness of breath; Z87.891 Personal history of nicotine dependence; Z79.899 Other long term (current) drug therapy; Z87.442 Personal history of urinary calculi
CPT/HCPCS: 36415; 71046; 80053; 84484; 85025; 85610; 93005; 99283

== ENCOUNTER 2021-05-12 22:13 | Inpatient (IN) ==
[2021-05-12] MEDS ORDERED: EPINEPHrine SYR 0.1MG/ML 10 ml SYRINGE ONE (22:47)
[2021-05-12] MEDS ORDERED: Heparin - STEMI 5,000 UNITS/ML 1 ml VIAL IV ONE (22:52)
[2021-05-12 23:09] LABS: Hematocrit 44 % (42-52); Hemoglobin 15.4 g/dL (14.0-18.0); Mean Corpuscular HGB Conc 35 g/dL (31-36); Mean Corpuscular Hemoglobin 30 pg (27-31); Mean Corpuscular Volume 86 fL (80-94); Mean Platelet Volume 7.5 fL (7.4-10.4); Platelet Count 254 10^3/uL (150-450); Red Blood Count 5.13 10^6 /uL (4.18-5.48); Red Cell Distribution Width 13 % (10-15); White Blood Count 12.8 10^3/uL (3.5-10.8)
[2021-05-12 23:14] LABS: INR 1.01 (0.86-1.15)
[2021-05-12] MEDS ORDERED: fentaNYL 100 mcg/2 ml 50 MCG/ML VIAL ONE (23:14)
[2021-05-12] MEDS ORDERED: VERAPAMIL 2.5 MG/ML 2 ML VIAL ** 5 mg/2 ml ONE (23:14)
[2021-05-12] MEDS ORDERED: Heparin 1,000 UNIT/ML 10 ml (10,000 UNITS) CATHLAB/DIALYSIS ONE (23:14)
[2021-05-12] MEDS ORDERED: Midazolam 5 mg/5 ml VIAL 1 mg/ml 5 ml VIAL (5 mg) ONE (23:14)
[2021-05-12] MEDS ORDERED: Iohexol 350 (CONTRAST) 200 ML MDV IV ONE ×2 (23:14→23:25)
[2021-05-12] MEDS ORDERED: nitroGLYCERIN DRIP 25,000 MCG/250 ML BTL ONE (23:14)
[2021-05-12] MEDS ORDERED: Lidocaine 1% VIAL 10 MG/ML VIAL ONE (23:14)
[2021-05-12] MEDS ORDERED: Heparin 2 UNITS/ML 1000 mls 2,000 ML IV ONE (23:14)
[2021-05-12] MEDS ORDERED: niCARdipine 0.1MG/ML IVPREMIX 20 MG/200 ML BAG IV ONE (23:15)
[2021-05-12] MEDS ORDERED: Amiodarone 150 mg IVPREMIX 150 MG/100 ML BAG IV ONE ×2 (23:17→23:42)
[2021-05-12 23:25] LABS: ALT 85 U/L (7-52); AST 54 U/L (13-39); Albumin 4.3 g/dL (3.2-5.2); Albumin/Globulin Ratio 1.3 (1-3); Alkaline Phosphatase 70 U/L (35-149); Anion Gap 15 mmol/L (2-11); Blood Urea Nitrogen 17 mg/dL (6-24); CO2 Carbon Dioxide 20 mmol/L (22-32); Calcium 9.5 mg/dL (8.6-10.3); Chloride 102 mmol/L (101-111); Globulin 3.3 g/dL (2-4); Glucose 189 mg/dL (70-100); Magnesium 2.4 mg/dL (1.9-2.7); Potassium 3.5 mmol/L (3.5-5.0); Sodium 137 mmol/L (135-145); Total Protein 7.6 g/dL (6.4-8.9)
[2021-05-12 23:41] LABS: Troponin I 0.03 ng/mL (<0.03)
[2021-05-12 23:50] LABS: ABS Eosinophils 0.2 10^3/ul (0-0.6); ABS Lymphocytes 5.6 10^3/ul (1.0-4.8); ABS Monocytes 1.5 10^3/ul (0-0.8); ABS Neutrophils 5.4 10^3/ul (1.5-7.7); Eosinophil % 1.3 %; Lymphocyte % 44.1 %; Nucleated Red Blood Cells % 0.1
[2021-05-13] MEDS ORDERED: Prasugrel 10 mg TAB (NF) ONE (00:02)
[2021-05-13 01:30] LABS: Rapid COVID-19 Molecular Undetected (Undetected)
[2021-05-13 01:47] LABS: Troponin I 0.94 ng/mL (<0.03)
[2021-05-13 07:13] LABS: Troponin I 2.26 ng/mL (<0.03)
[2021-05-13] MEDS ORDERED: oxyCODONE/Acetamin 5/325 mg TAB PO PRN (07:43)
[2021-05-13] MEDS: CMCS: Prasugrel 10 mg TAB (NF) PO SCH (08:45)
[2021-05-13 10:21] LABS: ABS Eosinophils 0.1 10^3/ul (0-0.6); ABS Lymphocytes 1.8 10^3/ul (1.0-4.8); ABS Monocytes 0.8 10^3/ul (0-0.8); ABS Neutrophils 6.3 10^3/ul (1.5-7.7); Eosinophil % 0.7 %; Hematocrit 41 % (42-52); Hemoglobin 14.4 g/dL (14.0-18.0); Lymphocyte % 20.2 %; Mean Corpuscular HGB Conc 35 g/dL (31-36); Mean Corpuscular Hemoglobin 30 pg (27-31); Mean Corpuscular Volume 86 fL (80-94); Mean Platelet Volume 7.5 fL (7.4-10.4); Platelet Count 192 10^3/uL (150-450); Red Blood Count 4.77 10^6 /uL (4.18-5.48); Red Cell Distribution Width 13 % (10-15); White Blood Count 8.9 10^3/uL (3.5-10.8)
[2021-05-13 10:37] LABS: Albumin 4.2 g/dL (3.2-5.2); Albumin/Globulin Ratio 1.4 (1-3); Globulin 3.1 g/dL (2-4); Potassium 3.6 mmol/L (3.5-5.0); Total Bilirubin 0.7 mg/dL (0.2-1.0); Total Protein 7.3 g/dL (6.4-8.9)
[2021-05-13] MEDS ORDERED: Potassium Chloride LIQUID 20 MEQ/15 ML LIQUID PO ONE (10:47)
[2021-05-14 05:25] LABS: ABS Eosinophils 0.1 10^3/ul (0-0.6); ABS Lymphocytes 2.5 10^3/ul (1.0-4.8); ABS Monocytes 0.7 10^3/ul (0-0.8); ABS Neutrophils 3.3 10^3/ul (1.5-7.7); Eosinophil % 2.1 %; Hematocrit 39 % (42-52); Hemoglobin 13.5 g/dL (14.0-18.0); Lymphocyte % 37.5 %; Mean Corpuscular HGB Conc 34 g/dL (31-36); Mean Corpuscular Hemoglobin 30 pg (27-31); Mean Corpuscular Volume 86 fL (80-94); Mean Platelet Volume 7.6 fL (7.4-10.4); Platelet Count 204 10^3/uL (150-450); Red Blood Count 4.55 10^6 /uL (4.18-5.48); Red Cell Distribution Width 13 % (10-15); White Blood Count 6.7 10^3/uL (3.5-10.8)
[2021-05-14 05:51] LABS: Albumin 3.9 g/dL (3.2-5.2); Albumin/Globulin Ratio 1.3 (1-3); Globulin 2.9 g/dL (2-4); HDL Cholesterol 25.1 mg/dL; Total Bilirubin 0.9 mg/dL (0.2-1.0); Total Protein 6.8 g/dL (6.4-8.9)
[2021-05-14 05:52] LABS: Potassium 4.4 mmol/L (3.5-5.0)
[2021-05-14] MEDS: CMCS: Prasugrel 10 mg TAB (NF) PO SCH (07:42)
[2021-05-14] MEDS ORDERED: Perflutren Lipid Microsphere 3 ML VIAL ONE (10:12)
[2021-05-15 08:05] LABS: ABS Eosinophils 0.1 10^3/ul (0-0.6); ABS Lymphocytes 2.3 10^3/ul (1.0-4.8); ABS Monocytes 0.8 10^3/ul (0-0.8); Eosinophil % 1.4 %; Hematocrit 42 % (42-52); Hemoglobin 14.5 g/dL (14.0-18.0); Lymphocyte % 31.9 %; Mean Corpuscular HGB Conc 34 g/dL (31-36); Mean Corpuscular Hemoglobin 30 pg (27-31); Mean Corpuscular Volume 86 fL (80-94); Mean Platelet Volume 7.6 fL (7.4-10.4); Nucleated Red Blood Cells % 0.1; Platelet Count 224 10^3/uL (150-450); Red Cell Distribution Width 13 % (10-15); White Blood Count 7.3 10^3/uL (3.5-10.8)
[2021-05-15 08:16] LABS: Albumin 4.3 g/dL (3.2-5.2); Albumin/Globulin Ratio 1.3 (1-3); Calcium 9.6 mg/dL (8.6-10.3); Globulin 3.2 g/dL (2-4); Total Bilirubin 0.9 mg/dL (0.2-1.0); Total Protein 7.5 g/dL (6.4-8.9)
[2021-05-15] MEDS: CMCS: Prasugrel 10 mg TAB (NF) PO SCH (09:06)
[2021-05-15] MEDS ORDERED: Senna TAB 8.6 mg TAB PO ONE (09:28)
[2021-05-15 13:16] VITALS: BP 125/68
== END 2021-05-15 14:55 | disposition home or self-care (01) | DRG 174 ==
LOC: ED 22:13 → CHICATH 23:33 → ICU 05-13 01:03 → SUATTDRO 05-13 01:03 → MEDTELE 05-14 16:25
PROVIDERS: ADMIT Internal Medicine; ATTEND Internal Medicine